=== PATIENT | male | born 1930 | race Caucasian/White ===

== ENCOUNTER 2018-10-14 08:41 | Inpatient (IN) | payer OTHER, BC ==
[2018-10-14] MEDS ORDERED: SODIUM CHLORIDE 1,000 ML IV SCH (08:45)
[2018-10-14] MEDS ORDERED: SODIUM CHLORIDE 500 ML IV STA (09:05)
[2018-10-14 09:08] LABS: BASO % 0.5 % (0-2.0); EOS % 0.1 % (0-4.5); HEMOGLOBIN 14.3 GM/dL (11.7-16.9); LYMPH % 25.8 % (8-40); MCH 28.6 pg (25.7-33.7); MCHC 33.2 g/dl (32.0-35.9); MEAN CELL VOLUME 86.1 fl (80-96); MEAN PLT VOLUME 8.3 fl (7.5-11.1); MONO % 2.7 % (3.8-10.2); NEUT % 70.9 % (42.8-82.8); PLATELET COUNT 334 K/MM3 (134-434); RBC 4.99 M/mm3 (4.00-5.60); RDW 14.1 % (11.9-15.9); WHITE BLOOD COUNT 7.2 K/mm3 (4.0-10.0)
[2018-10-14 09:16] LABS: ARTERIAL BLOOD GAS BASE EXCESS -4.8 meq/l (-2-2); ARTERIAL BLOOD GAS PCO2 44.2 mmHg (35-45); ARTERIAL BLOOD GAS PO2 121 mmHg (80-105); CARBOXYHEMOGLOBIN 0.4 % (0-2)
[2018-10-14 09:17] LABS: ALLENS TEST POSITIVE
[2018-10-14 09:22] LABS: INR 1.08 (0.83-1.09); PROTHROMBIN TIME (PATIENT) 12.7 SEC (9.7-13.0)
--- NOTE | 2018-10-14 09:34 | PDOC ---
History of Present Illness <Milady Fair - Last Filed: 10/14/18 09:48> - General History Source: EMS, Family Exam Limitations: Clinical Condition - History of Present Illness Initial Comments: 10/14/18 09:28 88-year-old male with history of BPH brought in by EMS after he was found unresponsive by his . Patient was last noted in his baseline state of health at 3 AM and they have arrival after which she was noted to vomit. Upon EMS arrival, patient was noted to be having generalized tonic-clonic seizure with right-sided gaze preference. Upon termination of seizure, patient was noted to be bradykinetic which L or respirations and intubation was performed for airway protection. Etomidate and rocuronium were used. No trauma is reported no toxic ingestion is endorsed. Fingerstick in the field was 159. REVIEW OF SYSTEMS Unable to obtain due to patient's clinical condition EXAMINATION CONSTITUTIONAL: Intubated, comatose, GCS-3 on arrival; hypotensive HEAD: Normocephalic; atraumatic EYES: Pupils are 1 mm bilaterally, nonreactive ENMT: External appears normal; normal oropharynx; ET tube in place NECK: Supple; non-tender; CARD: Normal S1, S2; no murmurs, rubs, or gallops RESP: Normal chest excursion with respiration; breath sounds clear and equal bilaterally; no wheezes, rhonchi, or rales ABD: Soft, non-distended; non-tender; no palpable organomegaly, no palpable hernias EXT: Normal ROM in all four extremities; non-tender to palpation; distal pulses intact SKIN: Warm, dry, no rash NEURO: Unresponsive, intubated, does not respond to painful stimuli <Del Hicks - Last Filed: 10/14/18 13:35> - General Chief Complaint: Seizure Stated Complaint: UNCONSCIOUS Time Seen by Provider: 10/14/18 08:45 Past History <Milady Fair - Last Filed: 10/14/18 09:48> - Past Medical History COPD: No HTN: Yes Other medical history: BPH - Suicide/Smoking/Psychosocial Hx Smoking History: Unknown if ever smoked <Del Hicks - Last Filed: 10/14/18 13:35> - Past Medical History Allergies/Adverse Reactions: Allergies Allergy/AdvReac Type Severity Reaction Status Date / Time No Allergy Information Allergy Verified 10/14/18 08:52 Available Home Medications: Ambulatory Orders NK [No Known Home Medication] 10/14/18 *Physical Exam - Vital Signs Last Vital Signs Temp Pulse Resp BP Pulse Ox 97.5 F L 81 14 119/76 100 10/14/18 09:44 10/14/18 09:44 10/14/18 09:44 10/14/18 09:44 10/14/18 09:44 <Milady Fair - Last Filed: 10/14/18 09:48> - Vital Signs Last Vital Signs Temp Pulse Resp BP Pulse Ox 97.5 F L 81 15 91/51 L 100 10/14/18 09:05 10/14/18 08:55 10/14/18 09:09 10/14/18 08:55 10/14/18 08:55 <Del Hicks - Last Filed: 10/14/18 13:35> Moderate Sedation - Procedure Monitoring Vital Signs: Procedure Monitoring Vital Signs Temperature 97.5 F L 10/14/18 09:44 Pulse Rate 81 10/14/18 09:44 Respiratory Rate 14 10/14/18 09:44 Blood Pressure 119/76 10/14/18 09:44 O2 Sat by Pulse Oximetry (%) 100 10/14/18 09:44 <Milady Fair - Last Filed: 10/14/18 09:48> - Procedure Monitoring Vital Signs: Procedure Monitoring Vital Signs Temperature 97.5 F L 10/14/18 09:05 Pulse Rate 81 10/14/18 08:55 Respiratory Rate 15 10/14/18 09:09 Blood Pressure 91/51 L 10/14/18 08:55 O2 Sat by Pulse Oximetry (%) 100 10/14/18 08:55 <Del Hicks - Last Filed: 10/14/18 13:35> Heart Score/ECG Review - ECG Intrepretation Comment:: 10/14/18 09:49 EKG was read by Dr. Hicks at 09:26 Impression: Sinus rhythm with occasional premature ventricular complexes. Cannot r/u anterior infarct of undetermined age. Vent Rate: 88 bpm [place] Interval: 196 ms QTC: 459ms <Milady Fair - Last Filed: 10/14/18 09:48> ED Treatment Course - LABORATORY CBC & Chemistry Diagram: 10/14/18 08:45 10/14/18 08:45 - ADDITIONAL ORDERS Additional order review: Laboratory Results 10/14/18 10/14/18 10/14/18 09:05 08:46 08:45 PT with INR INR Anticoagulation Therapy No Result Required. Puncture Site Left radial ABG pH 7.30 L ABG pCO2 at Pt Temp 44.2 ABG pO2 at Pt Temp 121 H ABG HCO3 21.1 L ABG O2 Sat (Measured) 98.0 ABG O2 Content 18.2 ABG Base Excess -4.8 L Roney Test Positive Carboxyhemoglobin 0.4 Methemoglobin 0.4 O2 Delivery Device No Result Required. Oxygen Flow Rate Yes Vent Mode No Result Required. Vent Rate No Result Required. Mechanical Rate No Result Required. Pressure Support Vent No Result Required. Sodium 137 Potassium 3.7 Chloride 102 Carbon Dioxide 24 Anion Gap 11 BUN 12 Creatinine 1.1 Creat Clearance w eGFR > 60 POC Glucometer 195 Random Glucose 200 H Calcium 8.7 Total Bilirubin 0.7 AST 15 ALT 17 Alkaline Phosphatase 132 H Creatine Kinase 65 Troponin I < 0.02 Total Protein 7.5 Albumin 4.0 Triglycerides 147 Cholesterol 189 Total LDL Cholesterol 109 H HDL Cholesterol 54 10/14/18 08:43 PT with INR 12.70 INR 1.08 Anticoagulation Therapy Puncture Site ABG pH ABG pCO2 at Pt Temp ABG pO2 at Pt Temp ABG HCO3 ABG O2 Sat (Measured) ABG O2 Content ABG Base Excess Roney Test Carboxyhemoglobin Methemoglobin O2 Delivery Device Oxygen Flow Rate Vent Mode Vent Rate Mechanical Rate Pressure Support Vent Sodium Potassium Chloride Carbon Dioxide Anion Gap BUN Creatinine Creat Clearance w eGFR POC Glucometer Random Glucose Calcium Total Bilirubin AST ALT Alkaline Phosphatase Creatine Kinase Troponin I Total Protein Albumin Triglycerides Cholesterol Total LDL Cholesterol HDL Cholesterol 10/14/18 10/14/18 08:46 08:45 RBC 4.99 MCV 86.1 MCHC 33.2 RDW 14.1 MPV 8.3 Neutrophils % 70.9 Lymphocytes % 25.8 Monocytes % 2.7 L Eosinophils % 0.1 Basophils % 0.5 POC Glucometer 195 - RADIOLOGY Radiograph Interpretation: EXAM#: TYPE/EXAM: RESULT: [id number] CT/HEAD CT (STROKE) Rule out stroke. CT scan of the brain. A noncontrast CT scan of the brain was performed. There is moderate volume loss and ventricular dilatation. Moderate chronic microvascular ischemic changes are present There is a small dural based/extra axial right parafalcine hyperdense lesion measuring 8 x 6 mm suggestive of a meningioma. Otherwise, no mass lesion, gross acute infarct or intracranial hemorrhage are identified. Mild deviation of the nasal septum towards the left. Minimal mucosal thickening in the right maxillary antrum. Otherwise, the visualized paranasal sinuses and mastoid air cells are well aerated. Calcification of the cavernous carotid arteries are noted. The calvarium is intact . Note is made of mild soft tissue swelling of the scalp over right side of the forehead. Impression: Moderate atrophy. 8 x 6 mm right anterior parafalcine hyperdense lesion with calcification likely representing a meningioma. Otherwise, no mass lesion or gross acute intracranial pathology is identified. Correlate clinically to determine further evaluation and follow-up. Note is made of mild soft tissue swelling of the scalp over right side of the forehead. Correlate clinically. Reported By: Tang Lama MD 10/14/18 0921 <Milady Fair - Last Filed: 10/14/18 09:48> - LABORATORY CBC & Chemistry Diagram: 10/14/18 08:45 10/14/18 08:45 - ADDITIONAL ORDERS Additional order review: Laboratory Results 10/14/18 10/14/18 10/14/18 09:05 08:46 08:43 PT with INR 12.70 INR 1.08 Anticoagulation Therapy No Result Required. Puncture Site Left radial ABG pH 7.30 L ABG pCO2 at Pt Temp 44.2 ABG pO2 at Pt Temp 121 H ABG HCO3 21.1 L ABG O2 Sat (Measured) 98.0 ABG O2 Content 18.2 ABG Base Excess -4.8 L Roney Test Positive Carboxyhemoglobin 0.4 Methemoglobin 0.4 O2 Delivery Device No Result Required. Oxygen Flow Rate Yes Vent Mode No Result Required. Vent Rate No Result Required. Mechanical Rate No Result Required. Pressure Support Vent No Result Required. POC Glucometer 195 10/14/18 10/14/18 08:46 08:45 RBC 4.99 MCV 86.1 MCHC 33.2 RDW 14.1 MPV 8.3 Neutrophils % 70.9 Lymphocytes % 25.8 Monocytes % 2.7 L Eosinophils % 0.1 Basophils % 0.5 POC Glucometer 195 - RADIOLOGY Radiology Studies Ordered: Category Date Time Status HEAD CT (STROKE) [CT] Stat CT Scan 10/14/18 08:45 Completed CHEST X-RAY PORTABLE* [RAD] Stat Radiology 10/14/18 08:46 Ordered <Del Hicks - Last Filed: 10/14/18 13:35> Medical Decision Making - Critical Care Time Total Critical Care Time (minutes): 90 Critical Care Statement: The care of this patient involved high complexity decision making to prevent further life threatening deterioration of the patient 's condition and/or to evaluate & treat vital organ system(s) failure or risk of failure. - Medical Decision Making 10/14/18 09:45 88-year-old male with previous history of hypercholesterolemia and BPH presents to the ER after being unresponsive at home. Episode of vomiting and a generalized tonic-clonic seizure noted and patient intubated for airway protection by EMS. Initial evaluation patient is comatose and unresponsive. Upon return from CT, patient's hemodynamic status stabilized. Repeat evaluation shows spontaneous movement of the left upper extremity and withdrawal of the left lower extremity from painful stimuli. No movement is appreciated on the right. Pupils remain 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 Case discussed with Dr. Reyes of neurology. We'll administer rectal aspirin. Will obtain CTA of neck and brain. Patient not a TPA candidate given the seizure at the onset of his symptoms and presentatoin more then 3 hrs after last known well. We'll consider transfer for thrombectomy if a significant lesion is identified. 10/14/18 11:58 Patient CTA of brain and neck shows no evidence of significant large vessel obstruction. 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 There is no indication for thrombectomy at this time. Will admit to the ICU. 10/14/18 11:59 Unable to obtain NIH stroke scale is patient is comatose. 10/14/18 12:04 Repeat chest x-ray shows ET tube 2 cm above the prasanth. Left costophrenic blunting is noted. It may be caused due to atelectasis or aspiration. There is no indication for IV antibiotics at this time as the patient is afebrile and there is no evidence of significant leukocytosis on CBC. 10/14/18 12:51 Called to patient's bedside. Patient noted to be vomiting coffee ground emesis. NG tube placed and 300 mL of coffee-ground like material aspirated. We'll administer Protonix. 10/14/18 13:35 Patient agitated and moving all extremities. Patient is opening his eyes. Will initiate propofol drip for sedation. <Del Hicks - Last Filed: 10/14/18 13:35> *DC/Admit/Observation/Transfer - Attestations Scribe Attestion: 10/14/18 09:48 Documentation prepared by Milady Fair, acting as program medical director for Del Hicks MD <Milady Fair - Last Filed: 10/14/18 09:48> - Discharge Dispostion Decision to Admit order: Yes <Del Hicks - Last Filed: 10/14/18 13:35> Diagnosis at time of Disposition: Seizure CVA (cerebral vascular accident) Qualifiers: CVA mechanism: unspecified Qualified Code(s): I63.9 - Cerebral infarction, unspecified Respiratory failure Qualifiers: Chronicity: unspecified Respiratory failure complication: unspecified whether with hypoxia or hypercapnia Qualified Code(s): J96.90 - Respiratory failure, unspecified, unspecified whether with hypoxia or hypercapnia GI bleed Qualifiers: GI bleed type/associated pathology: unspecified gastrointestinal hemorrhage type Qualified Code(s): K92.2 - Gastrointestinal hemorrhage, unspecified - Discharge Dispostion Condition at time of disposition: Critical NIH Stroke Scale - Last Known Well Date/Time & Onset Date Last Known Well: 10/14/18 Time Last Known Well: 03:00 - Initial Evaluation Level of consciousness: Coma <Del Hicks - Last Filed: 10/14/18 13:35>
[2018-10-14] MEDS ORDERED: ASPIRIN 300 MG SUPP.RECT PR ONE (09:35)
[2018-10-14 09:39] LABS: ALK PHOS 132 U/L (45-117); ANION GAP 11 MMOL/L (8-16); BILIRUBIN,TOTAL 0.7 mg/dL (0.2-1); BLOOD UREA NITROGEN 12 mg/dL (7-18); CALCIUM 8.7 mg/dL (8.5-10.1); CHLORIDE 102 mmol/L (98-107); CHOLESTEROL 189 mg/dL (50-200); CO2 24 mmol/L (21-32); CREATININE 1.1 mg/dL (0.55-1.3); GLUCOSE,RANDOM 200 mg/dL (74-106); HDL CHOLESTEROL 54 mg/dL (40-60); POTASSIUM 3.7 mmol/L (3.5-5.1); SGOT/AST 15 U/L (15-37); SGPT/ALT 17 U/L (13-61); SODIUM 137 mmol/L (136-145); TOT PROT 7.5 g/dl (6.4-8.2); TRIGLYCERIDES 147 mg/dL (0-150)
[2018-10-14] MEDS ORDERED: ASPIRIN 300 MG SUPP.RECT RC ONE (09:47)
[2018-10-14 10:28] LABS: URINE APPEARANCE SLCLOUDY; URINE BILIRUBIN NEGATIVE (<2.0 mg/dL); URINE COLOR LTYELLOW; URINE GLUCOSE (UA) 2+ (NEGATIVE); URINE KETONE TRACE (NEGATIVE); URINE LEUK ESTERASE NEGATIVE (NEGATIVE); URINE NITRITE NEGATIVE (NEGATIVE); URINE PROTEIN 1+ (NEGATIVE); URINE UROBILINOGEN NEGATIVE mg/dL (0.2-1.0)
[2018-10-14 10:29] LABS: EPI CELLS RARE /HPF (FEW); URINE BACTERIA RARE /hpf (NONE SEEN); URINE HYALINE CAST 3 /lpf; URINE MUCUS RARE
[2018-10-14] MEDS ORDERED: SODIUM CHLORIDE 250 ML IV STA (10:34)
--- NOTE | 2018-10-14 12:44 | PN ---
Teaching Attending Note ATTENDING PHYSICIAN STATEMENT I saw and evaluated the patient. I reviewed the resident's note and discussed the case with the resident. I agree with the resident's findings and plan as documented. SUBJECTIVE: Pt seen and examined in the ER. History obtained from family at bedside, Briefly , 88yo male with h/o BPH, hyperlipidemia who was found to be unresponsive at home. Had been complaining of gastrointestinal symptoms previously with diarrhea and vomiting. Noted to have seizure activity by EMS and intubated post seizure. Currently somnolent but arousable off sedation, not following commands. Vented on volume assist control with 80% FiO2. Found to have a small basal ganglia infarct on CTA head. OBJECTIVE: Vital Signs Period Temp Pulse Resp BP Sys/Ludwig Pulse Ox Last 24 Hr 97.5 F-97.5 F 81-86 14-18 91-119/51-76 100-100 Intake & Output 10/11/18 10/12/18 10/13/18 10/14/18 23:59 23:59 23:59 23:59 Weight 99.79 kg Gen: intubated, somnolent Heart: RRR Lung: scattered rhonchi Abd: soft, nontender Ext: no edema CBC, BMP 10/14/18 08:45 10/14/18 08:45 Active Medications Sodium Chloride (Normal Saline -) 1,000 mls @ 42 mls/hr IV ASDIR BARRETT Last Admin: 10/14/18 09:31 Dose: 42 mls/hr ASSESSMENT AND PLAN: Acute CVA Seizure Acute Respiratory Failure Lactic Acidosis Atelectasis Hyperlipidemia BPH - given ASA in ER - antiepileptics - IVF - trend lactate - hold sedation in AM to assess mental status - spontaneous breathing trials and hopefully extubate tomorrow - MRI brain when extubated - DVT/GI prophylaxis - ICU monitoring critical care time spent in reviewing chart, evaluating patient and formulating plan 35 min
[2018-10-14] MEDS ORDERED: PANTOPRAZOLE SODIUM 40 MG VIAL IVPUSH ONE (12:53)
[2018-10-14] MEDS ORDERED: PANTOPRAZOLE SODIUM 40 MG/100 ML BAG IVPB ONE (12:55)
[2018-10-14] MEDS ORDERED: PANTOPRAZOLE SODIUM 40 MG VIAL ONE ×2 (12:55→12:56)
--- NOTE | 2018-10-14 13:32 | PN ---
Teaching Attending Note Name of Resident: Shelly Rivera ATTENDING PHYSICIAN STATEMENT I saw and evaluated the patient. I reviewed the resident's note and discussed the case with the resident. I agree with the resident's findings and plan as documented. SUBJECTIVE: The patient is a 88yo male with PMHx of BPH, hyperlipidemia who was found to be unresponsive at home around 4-5am at home by his . Noted to have seizure activity by EMS and was intubated post seizure. On sedation, not following commands. Was Found to have a small basal ganglia infarct on CTA head. OBJECTIVE: Vital Signs Temperature 97.5 F L 10/14/18 09:44 Pulse Rate 86 10/14/18 12:25 Respiratory Rate 14 10/14/18 12:25 Blood Pressure 108/56 L 10/14/18 12:25 O2 Sat by Pulse Oximetry (%) 100 10/14/18 12:25 Initial Vital Signs Pulse Resp BP Pulse Ox 81 16 91/51 L 100 10/14/18 08:55 10/14/18 08:55 10/14/18 08:55 10/14/18 08:55 CONSTITUTIONAL: Intubated, comatose, GCS-3 on arrival; hypotensive HEAD: Normocephalic; atraumatic EYES: Pupils are 1 mm bilaterally, nonreactive ENMT: External appears normal; normal oropharynx; ET tube in place NECK: Supple; non-tender; CARD: Normal S1, S2; no murmurs, rubs, or gallops RESP: Normal chest excursion with respiration; breath sounds clear and equal bilaterally; no wheezes, rhonchi, or rales ABD: Soft, non-distended; non-tender; no palpable organomegaly, no palpable hernias EXT: Normal ROM in all four extremities; non-tender to palpation; distal pulses intact SKIN: Warm, dry, no rash NEURO: Unresponsive, intubated, does not respond to painful stimuli since on sedation CBCD WBC 7.2 K/mm3 (4.0-10.0) 10/14/18 08:45 RBC 4.99 M/mm3 (4.00-5.60) 10/14/18 08:45 Hgb 14.3 GM/dL (11.7-16.9) 10/14/18 08:45 Hct 43.0 % (35.4-49) 10/14/18 08:45 MCV 86.1 fl (80-96) 10/14/18 08:45 MCHC 33.2 g/dl (32.0-35.9) 10/14/18 08:45 RDW 14.1 % (11.9-15.9) 10/14/18 08:45 Plt Count 334 K/MM3 (134-434) 10/14/18 08:45 MPV 8.3 fl (7.5-11.1) 10/14/18 08:45 CMP Sodium 137 mmol/L (136-145) 10/14/18 08:45 Potassium 3.7 mmol/L (3.5-5.1) 10/14/18 08:45 Chloride 102 mmol/L (98-107) 10/14/18 08:45 Carbon Dioxide 24 mmol/L (21-32) 10/14/18 08:45 Anion Gap 11 MMOL/L (8-16) 10/14/18 08:45 BUN 12 mg/dL (7-18) 10/14/18 08:45 Creatinine 1.1 mg/dL (0.55-1.3) 10/14/18 08:45 Creat Clearance w eGFR > 60 (>60) 10/14/18 08:45 Random Glucose 200 mg/dL (74-106) H 10/14/18 08:45 Calcium 8.7 mg/dL (8.5-10.1) 10/14/18 08:45 Total Bilirubin 0.7 mg/dL (0.2-1) 10/14/18 08:45 AST 15 U/L (15-37) 10/14/18 08:45 ALT 17 U/L (13-61) 10/14/18 08:45 Alkaline Phosphatase 132 U/L (45-117) H 10/14/18 08:45 Total Protein 7.5 g/dl (6.4-8.2) 10/14/18 08:45 Albumin 4.0 g/dl (3.4-5.0) 10/14/18 08:45 CARDIAC ENZYMES Creatine Kinase 65 U/L (26-308) 10/14/18 08:45 Troponin I < 0.02 ng/ml (0.00-0.05) 10/14/18 08:45 Urine Test Results Urine Color Ltyellow 10/14/18 09:17 Urine Appearance Slcloudy 10/14/18 09:17 Urine pH 6.0 (5.0-8.0) 10/14/18 09:17 Ur Specific [place] 1.011 (1.010-1.035) 10/14/18 09:17 Urine Protein 1+ (NEGATIVE) H 10/14/18 09:17 Urine Glucose (UA) 2+ (NEGATIVE) H 10/14/18 09:17 Urine Ketones Trace (NEGATIVE) H 10/14/18 09:17 Urine Blood 1+ (NEGATIVE) H 10/14/18 09:17 Urine Nitrite Negative (NEGATIVE) 10/14/18 09:17 Urine Bilirubin Negative (<2.0 mg/dL) 10/14/18 09:17 Ur Leukocyte Esterase Negative (NEGATIVE) 10/14/18 09:17 Ur Epithelial Cells Rare /HPF (FEW) 10/14/18 09:17 Urine Bacteria Rare /hpf (NONE SEEN) 10/14/18 09:17 Urine Mucus Rare 10/14/18 09:17 Current Medications Generic Name Dose Route Start Last Admin Trade Name Freq PRN Reason Stop Dose Admin Atorvastatin Calcium 40 mg 10/14/18 22:00 Lipitor - PO HS BARRETT Chlorhexidine Gluconate 1 applic 10/14/18 22:00 Hibiclens For Decolonization - TP HS BARRETT Propofol 1,000,000 mcg in 100 mls @ 2.994 mls/hr 10/14/18 13:45 10/14/18 15: 30 Diprivan - IVPB 25 mcg/kg/min TITR BARRETT 14.969 mls/hr Titration Protocol 5 MCG/KG/MIN Ceftriaxone Sodium 1 gm/ 50 mls @ 100 mls/hr 10/14/18 16:15 10/14/18 17:53 Dextrose IVPB 100 mls/hr DAILY BARRETT Administration Sodium Chloride 1,000 mls @ 100 mls/hr 10/14/18 16:12 10/14/18 16:15 Normal Saline - IV 100 mls/hr ASDIR BARRETT Administration Pantoprazole Sodium 80 mg/ 100 mls @ 10 mls/hr 10/14/18 18:00 Sodium Chloride IVPB Q10H BARRETT 8 MG/HR Levetiracetam 1,000 mg 10/14/18 14:45 10/14/18 16:10 Keppra Injection - IVPB 1,000 mg BID BARRETT Administration Mupirocin 1 applic 10/14/18 22:00 Bactroban Ointment (For Decolonization) - NS 10/19/18 21:59 BID BARRETT ASSESSMENT AND PLAN: Patient is an 88 year old male with a PMHx of BPH and HLD who was intubated on the field due to apnea and hypoxia . According to , patient last night had multiple episodes of nonbloody diarrhea and one episode of dark vomitus and one at 0700 today. Patient then became unresponsive, which prompted them to call 911. On the field patient was intubated due to apnea and hypoxia. As per and daughter, patient was in his usual state of health yesterday with no changes at baseline. However, patients daughter mentioned that in the last couple of weeks he would have some stuttered speech for a few seconds and would then go back to baseline. #Acute hypoxic Respiratory Failure: s/p intubation in ICU. Rest of management per ICU #Acute CVA: MRI brain when extubated, given ASA in ER, IVF, lipitor 80mg daily #Seizure: antiepileptics continue Keppra, Neuro consult appreciated #Lactic Acidosis: possible due to aspiration pneumonia as, per family patient vomited and became unresponsive , will start empiric Abx Rocephin. #Atelectasis: on IV antibiotics and on the vent. #Hyperlipidemia: will start Lipitor 80mg qhs # Hx of BPH #elevated BS: accu check with sliding scale. DVT/GI prophylaxis ICU monitoring
[2018-10-14] MEDS ORDERED: PROPOFOL 1,000,000 MCG/100 ML VIAL ONE (13:36)
[2018-10-14] MEDS: PROPOFOL 1,000,000 MCG/100 ML VIAL IVPB SCH ×2 (13:45→21:20)
--- NOTE | 2018-10-14 14:03 | CONSULT ---
Consultation: REQUESTING PROVIDER: Dr. Goode CONSULT REQUEST FOR ICU: We have been asked to medically evaluate this patient for Acute Hypoxic Respiratory Failure. HISTORY OF PRESENT ILLNESS: Patient is an 88 year old male with a PMHx of BPH and HLD who was BIBEMS intubated and sedated. All information obtained from /daughter and ED staff at bedside. according to , patient last night has multiple episodes of nonbloody diarrhea and one episode of dark vomitus at 0700 today. Patient then became unresponsive, which prompted them to call 911. On the field patient was intubated due to apnea and hypoxia. As per and daughter, patient was in his usual state of health yesterday with no changes at baseline. However, patients daughter mentioned that in the last couple of weeks he would have some stuttered speech for a few seconds and would then go back to baseline. In the ED patient had OG tube placed and 300 mL of coffee-ground like material was aspirated. 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 EYES: Pupils 3 mm bilaterally and non-reactive, sclera anicteric, conjunctiva clear. ENT: ET tube in place. Dry mucous membranes NECK: (-) JVD LUNGS: Bilateral Rhonchi throughout lung bases. (+)ET tube HEART: Regular rate and rhythm, normal S1 and S2 ABDOMEN: Soft, nontender, mildly distended, normoactive bowel sounds, no guarding, no rebound, no masses. No hepatomegaly or splenomegaly. MUSCULOSKELETAL: No CVA tenderness. EXTREMITIES: No peripheral edema. NEUROLOGICAL: Cranial nerves II-XII intact. Normal speech. Normal gait. PSYCHIATRIC: Cooperative. Good eye contact. Appropriate mood and affect. SKIN: Warm, dry, normal turgor, no rashes or lesions noted. Laboratory Results 10/14/18 08:45 10/14/18 08:45 10/14/18 10/14/18 08:45 08:45 Lactic Acid 9.0 H* Total Bilirubin 0.7 AST 15 ALT 17 Alkaline Phosphatase 132 H Troponin I < 0.02 ABG Results ABG pH 7.30 (7.35-7.45) L 10/14/18 09:05 ABG pCO2 at Pt Temp 44.2 mmHg (35-45) 10/14/18 09:05 ABG pO2 at Pt Temp 121 mmHg (80-105) H 10/14/18 09:05 ABG HCO3 21.1 mmol/L (22-27) L 10/14/18 09:05 ABG O2 Sat (Measured) 98.0 % (95-98) 10/14/18 09:05 ABG O2 Content 18.2 % vol (15-22) 10/14/18 09:05 ABG Base Excess -4.8 meq/l (-2-2) L 10/14/18 09:05 Urine Test Results Urine Color Ltyellow 10/14/18 09:17 Urine Appearance Slcloudy 10/14/18 09:17 Urine pH 6.0 (5.0-8.0) 10/14/18 09:17 Ur Specific [place] 1.011 (1.010-1.035) 10/14/18 09:17 Urine Protein 1+ (NEGATIVE) H 10/14/18 09:17 Urine Glucose (UA) 2+ (NEGATIVE) H 10/14/18 09:17 Urine Ketones Trace (NEGATIVE) H 10/14/18 09:17 Urine Blood 1+ (NEGATIVE) H 10/14/18 09:17 Urine Nitrite Negative (NEGATIVE) 10/14/18 09:17 Urine Bilirubin Negative (<2.0 mg/dL) 10/14/18 09:17 Ur Leukocyte Esterase Negative (NEGATIVE) 10/14/18 09:17 Ur Epithelial Cells Rare /HPF (FEW) 10/14/18 09:17 Urine Bacteria Rare /hpf (NONE SEEN) 10/14/18 09:17 Urine Mucus Rare 10/14/18 09:17 Active Medications Generic Name Dose Route Start Last Admin Trade Name Freq PRN Reason Stop Dose Admin Sodium Chloride 1,000 mls @ 42 mls/hr 10/14/18 08:45 10/14/18 09:31 Normal Saline - IV 42 mls/hr ASDIR BARRETT Administration Propofol 1,000,000 mcg in 100 mls @ 2.994 mls/hr 10/14/18 13:45 10/14/18 13: 45 Diprivan - IVPB 5 mcg/kg/min TITR BARRETT 2.994 mls/hr Administration Protocol 5 MCG/KG/MIN IMAGES: Head CT (10/14/18): There is moderate volume loss and ventricular dilatation. Moderate chronic microvascular ischemic changes are present. There is a small dural based/extra axial right parafalcine hyperdense lesion measuring 8 x 6 mm suggestive of a meningioma. Otherwise, no mass lesion, gross acute infarct or intracranial hemorrhage are identified. Mild deviation of the nasal septum towards the left. Minimal mucosal thickening in the right maxillary antrum. Otherwise, the visualized paranasal sinuses and mastoid air cells are well aerated. Calcification of the cavernous carotid arteries are noted. The calvarium is intact . Note is made of mild soft tissue swelling of the scalp over right side of the forehead. Impression: Moderate atrophy. 8 x 6 mm right anterior parafalcine hyperdense lesion with calcification likely representing a meningioma. Otherwise, no mass lesion or gross acute intracranial pathology is identified. Brain and Neck CTA (10/14/18): no evidence of significant large vessel obstruction. 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 ASSESSMENT/PLAN: Patient is an 88 year old male who was BIBEMS for altered mental status and witnessed seizure tonic/clonic seizure by . Patient was intubated on the field and admitted to ICU for further monitoring and management. 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 Prolactin pending. Repeat Lactic 2.3 -Levetiracetam 1000mg BID IVPB ordered, as per Neuro -No indication for emergent EEG, as per Neuro -Continue to monitor for further seizure activity. PULMONARY #Acute Hypoxic Respiratory Failure -Possibly secondary to Aspiration Pneumonia -Intubated and Sedated on propofol -Spontaneous breathing trials as tolerated with possible extubation tomorrow -Chest X-Ray revealed Left costophrenic blunting but may be due to atelectasis vs aspiration. -Ceftriaxone 1000mg IVPB daily ordered, as per primary team GASTROENTEROLOGY #Hematemesis -Possible UGI bleed. OG tube placed in ED and 300 mL of coffee-ground like material was aspirated -Patient given 80mg of Protonix and is now on Protonix drip -GI consult placed -OG tube placed -NPO for now -Hold AC and Aspirin -Monitor for overt bleeding. Will likely require EGD once patient stable #Possible Partial Bowel Obstruction -OG tube in with intermittent suction -Abdominal X-Ray revealed possible partial bowel obstruction -Surgery consult placed #Diarrhea -Patients family report one day history of nonbloody diarrhea -C.Diff ordered -Continue to monitor electrolytes #Elevated Alkaline Phosphatase -LFT's and Bili wnl -Abdominal U/S ordered -Continue to monitor CARDIOLOGY #HLD -Continue Atorvastatin 40mg daily INFECTIOUS DISEASE #Lactic Acidosis -Likely secondary to seizure activity -Patient currently on 100cc/hr IV NS -Lactic improved to 2.3. Will repeat lactic #Possible Aspiration Pneumonia -Afebrile with no leukocytosis -Ceftriaxone 1gm IVPB daily started, as per primary team -Blood cultures pending -Continue to monitor F/E/N -IV NS @100cc/hr -Electrolytes wnl -NPO Prophylaxis -No AC due to possible GI bleed -Protonix drip for GI Disposition -Full code. is HCP -Remains intubated and requires ICU monitoring Avani Valenzuela [id number] Visit type - Emergency Visit Emergency Visit: Yes ED Registration Date: 10/14/18 Care time: The patient presented to the Emergency Department on the above date and was hospitalized for further evaluation of their emergent condition. - New Patient This patient is new to me today: Yes Date on this admission: 10/14/18 - Critical Care Critical Care patient: Yes Total Critical Care Time (in minutes): 36 Critical Care Statement: The care of this patient involved high complexity decision making to prevent further life threatening deterioration of the patient 's condition and/or to evaluate & treat vital organ system(s) failure or risk of failure.
--- NOTE | 2018-10-14 14:48 | HP ---
CHIEF COMPLAINT: vomiting, unresponsive PCP: Dr. Yusuf HISTORY OF PRESENT ILLNESS: 88 y/o M with PMH BPH, HLD, who presents to the ED after he was found unresponsive at home by his this AM. As per , at approx 5-6AM, pt had one episode of NBNB emesis, and his eyes subsequently "rolled to the back of his head." At this time, he stopped responding to his verbally, so she called 911 and was brought to the ED via EMS. According to ED documentation, pt had one seizure-like episode en route, consistent with tonic-clonic movements. Recently, endorses pt had multiple episodes of loose BM's without blood. Otherwise, denies recent SWIFT, fever, chills, SOB, chest pain or pressure, or changes in urinary function. Since ED arrival, pt intubated and sedated. a/c TV 500/50% Fi02/60 flow/peep 5/ rate 14 ER course was notable for: (1) NIHSS 3 on arrival (2) asa 300mg ND (3) protonix 80mg x1 (4) vented, sedated (5) NS 500ml, 250ml Recent Travel: denies PAST MEDICAL HISTORY: as above PAST SURGICAL HISTORY: R knee repair, GIT - polyp and biopsy (family does not recall location) Social History: from [place] Smoking: when young Alcohol: socially Drugs: denies Family History: non-contributory Allergies No Allergy Information Available Allergy (Verified 10/14/18 08:52) HOME MEDICATIONS: Home Medications Medication Instructions Recorded atorvastatin 10mg qd tamsulosin 0.4mg qd 10/14/18 meds have been confirmed with [facility] REVIEW OF SYSTEMS CONSTITUTIONAL: Absent: fever, chills, diaphoresis, generalized weakness, malaise, loss of appetite, weight change HEENT: Absent: rhinorrhea, nasal congestion, throat pain, throat swelling, difficulty swallowing, mouth swelling, ear pain, eye pain, visual changes CARDIOVASCULAR: Absent: chest pain, syncope, palpitations, irregular heart rate, lightheadedness , peripheral edema RESPIRATORY: Absent: cough, shortness of breath, dyspnea with exertion, orthopnea, wheezing, stridor, hemoptysis GASTROINTESTINAL: +vomiting, diarrhea Absent: abdominal pain, abdominal distension, nausea, constipation, melena, hematochezia GENITOURINARY: Absent: dysuria, frequency, urgency, hesitancy, hematuria, flank pain, genital pain MUSCULOSKELETAL: Absent: myalgia, arthralgia, joint swelling, back pain, neck pain SKIN: Absent: rash, itching, pallor HEMATOLOGIC/IMMUNOLOGIC: Absent: easy bleeding, easy bruising, lymphadenopathy, frequent infections ENDOCRINE: Absent: unexplained weight gain, unexplained weight loss, heat intolerance, cold intolerance NEUROLOGIC: Absent: headache, focal weakness or paresthesias, dizziness, unsteady gait, seizure, mental status changes, bladder or bowel incontinence PSYCHIATRIC: Absent: anxiety, depression, suicidal or homicidal ideation, hallucinations. PHYSICAL EXAMINATION Vital Signs 10/14/18 10/14/18 13:45 14:25 Pulse Rate [ 89 Apical] Respiratory 20 Rate Blood Pressure Blood Pressure 143/61 [Right Arm] O2 Sat by Pulse 100 Oximetry (%) GENERAL: vented, sedated HEAD: Normal with no signs of trauma. EYES: Pupils equal, round and reactive to light, extraocular movements intact, sclera anicteric, conjunctiva clear. EARS, NOSE, THROAT: Ears normal, nares patent. +OGT NECK: Normal range of motion, supple LUNGS: +b/l rhonchi, coarse breath sounds HEART: Regular rate and rhythm, normal S1 and S2 without murmur, rub or gallop. ABDOMEN: Soft, nontender, mildly distended, normoactive bowel sounds UPPER EXTREMITIES: 2+ pt pulses, warm, well-perfused. No cyanosis. No clubbing. No peripheral edema. LOWER EXTREMITIES: 2+ pt pulses, warm, well-perfused. No calf tenderness. No peripheral edema. NEUROLOGICAL: unable to assess as pt sedated SKIN: Warm, dry Laboratory Tests 10/14/18 10/14/18 10/14/18 08:45 08:45 08:45 WBC 7.2 Hgb 14.3 Hct 43.0 MCV 86.1 Plt Count 334 ABG pH ABG pCO2 at Pt Temp ABG pO2 at Pt Temp ABG HCO3 Sodium 137 Potassium 3.7 Chloride 102 Carbon Dioxide 24 BUN 12 Creatinine 1.1 POC Glucometer Random Glucose 200 H Lactic Acid 9.0 H* Alkaline Phosphatase 132 H Troponin I < 0.02 Total LDL Cholesterol 109 H Prolactin Urine Blood 10/14/18 10/14/18 10/14/18 08:46 09:05 09:17 Hgb MCV Plt Count ABG pH 7.30 L ABG pCO2 at Pt Temp 44.2 ABG pO2 at Pt Temp 121 H ABG HCO3 21.1 L Sodium BUN POC Glucometer 195 Lactic Acid Prolactin Urine Protein 1+ H Urine Glucose (UA) 2+ H Urine Ketones Trace H Urine Blood 1+ H 10/14/18 10/14/18 12:00 15:00 Random Glucose Lactic Acid 2.3 H* Troponin I Prolactin Pending Urine Protein Head CT: 8x6mm R anterior parafalcine hyperdense lesion with calcification, meningioma, R soft tissue swelling Head CTA: moderate calcified ath plaque proximal L internal carotid a., small acute L basal gang infarct CXR: tip of ET above trachea bifurcation EKG: NSR with PVC's, qtc 459ms AXR: NGT in stomach, mildly distended small bowel loops, possible partial obstruction can't be r/o ASSESSMENT/PLAN: 88 y/o M with PMH BPH, HLD, who presents to the ED after he was found unresponsive at home by his this AM. NEURO #Acute ischemic stroke -allow for permissive HTN, BP currently controlled -ECHO, brain MRI once extubated -carotids already done via head CTA- moderate calc plaque prox L ICA -lipitor 40mg through NGT -will hold asa and a/c for now as pt with r/o GIB -PT as able, once off sedation -neurochecks q2h -neuro on board: Dr. Villeda #seizure -possible 2/2 focus - meningioma -will ppx with keppra 1000mg IVPB BID -eeg (non-urgent) - once extubated -sz prophylaxis PULM #Acute hypoxic RF possible 2/2 aspiration -will cover for now with rocephin 1g IVPB qd -f/u blood cx -c/w vent a/c, SBTs as permitted -elevate HOB GI #r/o UGIB -as with hx coffee-ground emesis. however w/o elevation in BUN. H/H currently stable -will repeat CBC to assess for change H/H -s/p protonix 80mg ED. will c/w protonix gtt -place NGT to check lavage. holding asa for now for stroke. once cleared, can start -GI consult: Dr. Aquino #elevated ALP -f/u abd sono for pathology -nl LFTs #r/o possible SBO -c/w NGT decompression ED had placed an OGT -IVF, lyte supplementation -Surgery consulted: Dr. Wilde RENAL #lactic acidosis likely 2/ sz -cont to trend -has improved, will c/w IV NS 100 cc/hr #F/E/N IV NS 100 cc/hr continue to follow lytes NPO #Code status full code is HCP #PPX DVT: SCD's in light of possible bleed GI: protonix #Dispo admit to ICU Visit type - Emergency Visit Emergency Visit: Yes ED Registration Date: 10/14/18 Care time: The patient presented to the Emergency Department on the above date and was hospitalized for further evaluation of their emergent condition. - New Patient This patient is new to me today: Yes Date on this admission: 10/14/18 - Critical Care Critical Care patient: Yes Total Critical Care Time (in minutes): 44 Critical Care Statement: The care of this patient involved high complexity decision making to prevent further life threatening deterioration of the patient 's condition and/or to evaluate & treat vital organ system(s) failure or risk of failure.
[2018-10-14] MEDS: levETIRAcetam 500 MG/5 ML INJECTION VIAL IVPB SCH ×2 (16:10→21:19)
[2018-10-14] MEDS: SODIUM CHLORIDE 1,000 ML IV SCH (16:15)
[2018-10-14 16:34] LABS: BASO % 0.3 % (0-2.0); HEMATOCRIT 37.4 % (35.4-49); HEMOGLOBIN 12.8 GM/dL (11.7-16.9); LYMPH % 9.4 % (8-40); MCH 28.7 pg (25.7-33.7); MCHC 34.1 g/dl (32.0-35.9); MEAN CELL VOLUME 84.2 fl (80-96); MEAN PLT VOLUME 8.2 fl (7.5-11.1); MONO % 5.6 % (3.8-10.2); NEUT % 84.7 % (42.8-82.8); PLATELET COUNT 311 K/MM3 (134-434); RBC 4.44 M/mm3 (4.00-5.60); RDW 13.7 % (11.9-15.9); WHITE BLOOD COUNT 13.5 K/mm3 (4.0-10.0)
[2018-10-14] MEDS ORDERED: cefTRIAXone SODIUM 1 GM VIAL ONE (17:40)
[2018-10-14] MEDS ORDERED: DEXTROSE 5%-WATER - 50 ML IVPB ONE (17:40)
[2018-10-14] MEDS: CEFTRIAXONE 1 GM in DEXTROSE 5%-WATER - 50 ML IVPB SCH (17:53)
[2018-10-14] MEDS: PANTOPRAZOLE SODIUM 80 MG in SODIUM CHLORIDE 100 ML IVPB SCH (18:39)
--- NOTE | 2018-10-14 20:38 | CONS ---
DATE OF CONSULTATION: 10/14/2018 GASTROENTEROLOGY CONSULTATION HISTORY OF PRESENT ILLNESS: The patient is an 88-year-old man with a past medical history of BPH, knee repair, history of polyps on colonoscopy in the past, who was found to be unresponsive at home by his earlier this morning. Apparently he also had an episode of vomiting at that time while he was in bed. She called EMS for further evaluation. Patient was intubated and sedated on the field. Apparently, prior to admission the patient had multiple episodes of loose bowel movements which were nonbloody. Patient was found to have an acute ischemic stroke. Also had an episode of coffee ground emesis while in the emergency room. There is no history of GI bleed in the past. As per the and daughter, patient has had upper endoscopy and colonoscopy over 10 years ago. They do not recall the physician or the results of this study. PAST MEDICAL AND SURGICAL HISTORY: As listed in the HPI. ALLERGIES: No known drug allergies. SOCIAL HISTORY: Does not smoke . Smoked when he was younger . Drinks alcohol socially, and no drug use. FAMILY HISTORY: Noncontributory. REVIEW OF SYSTEMS: Unable to obtain. Patient is intubated. PHYSICAL EXAMINATION: VITAL SIGNS: Temperature 98, pulse 76, blood pressure 107/65, respirations 14, on mechanical ventilation. GENERAL: In no acute distress. HEENT: Anicteric sclerae. CARDIOVASCULAR: S1, S2, regular rate and rhythm. LUNGS: Bilaterally clear to auscultation. ABDOMEN: Soft, nontender. EXTREMITIES: No edema. LABORATORY: White blood cell count 13, hemoglobin and hematocrit 12/37, MCV 84, platelet count 311, INR 1. Hemoglobin on admission was 14. Sodium 137, potassium 3.7, BUN/creatinine 12/1.1, lactic acid was 9 on admission currently 2.3, alkaline phosphatase 132, ALT 17, AST 15. Urine 1+ protein, 2+ glucose, 1+ blood. Stool for occult blood was negative. He had an abdominal ultrasound which revealed cholelithiasis and fatty infiltration of the liver. Also had an abdominal x-ray which revealed nonspecific gas pattern, mildly distended small bowel loops, partial obstruction cannot be excluded on this study. Chest x-ray, no opacities were seen in the upper lung zones. IMPRESSION: Nausea, vomiting, followed by an episode of coffee ground emesis. Maybe secondary to a small Talya Minor tear. Peptic ulcer disease and angiectasias cannot be excluded at this time . I doubt this patient is having an overt gastrointestinal bleed. He is hemodynamically stable. RECOMMENDATION: Would start him on a Protonix infusion, serial CBCs q.8 hours, avoid NSAID if possible, treatment for his ischemic stroke as per the medical ICU team. This patient will be followed by the GI service. Would prefer to hold off on any invasive procedures at this time considering his acute CVA. DO CHEVY PIMENTEL/[id number]
--- NOTE | 2018-10-14 21:00 | CON.NEURO ---
Consult - Alcohol/Substance Use Hx Alcohol Use: Yes (socially) - Smoking History Smoking history: Unknown if ever smoked Have you smoked in the past 12 months: No Home Medications - Allergies Allergies/Adverse Reactions: Allergies Allergy/AdvReac Type Severity Reaction Status Date / Time No Allergy Information Allergy Verified 10/14/18 08:52 Available - Home Medications Home Medications: Ambulatory Orders Atorvastatin Calcium 10 mg PO DAILY 10/14/18 Tamsulosin HCl 0.4 mg DAILY 10/14/18 Physical Exam-Neuro Vital Signs: Vital Signs Temperature 98.8 F 10/14/18 15:50 Pulse Rate 90 10/14/18 18:00 Respiratory Rate 15 10/14/18 18:22 Blood Pressure 101/67 10/14/18 18:00 O2 Sat by Pulse Oximetry (%) 100 10/14/18 19:24 Labs: CBC, BMP 10/14/18 16:00 10/14/18 08:45 INR, PTT INR 1.08 (0.83-1.09) 10/14/18 08:43 Assessment/Plan CC Episode of seizure and ? Stroke HPI 88 year old male histoyr of HLD,BPH. He was found unresponsive, patient had tonic clonic seizure and enroute to hospital .He was intubated and thought to have right sided hemiparesis, on ct head no big stroke or cta of neck and brain was normal. Patient was transferred to icu and remain intubated, he is started on keppra 1 gm iv bid. [employer] has not had any seizure. He has no fever . He has been moving all ext, and was given bolus of sedation before I came to see him and he is deeply sedated. PAST MEDICAL HISTORY: as above PAST SURGICAL HISTORY: R knee repair, GIT - polyp and biopsy (family does not recall location) Social History: from [place] Smoking: when young Alcohol: socially Drugs: denies Family History: non-contributory Allergies No Allergy Information Available Allergy (Verified 10/14/18 08:52) HOME MEDICATIONS: Home Medications Medication Instructions Recorded atorvastatin 10mg qd tamsulosin 0.4mg qd 10/14/18 NEUROLOGICAL EXAMIANTION Sedated and on ventilator pupils small and reactive, corneal reflex and gag reflex is present mild withdrawal to upper extremity to painful stimuli planter is mute ct head , cta of neck and brain unremarkable Assessment 88 year old male history of BPH, HLD. Patient had new onset seizure etiology unclear ? meningioma vs stroke. Patient remain intubated and complete neuro exam is not possible. aspirin can be given due to GI bleed Plan: continue statin and hold apsirin - mri of brain with contrast once stable - eeg can also be obtained - continue icu care and would like to examine once he is extubated. - Continue keppra 1 gm iv bid for now Thanking you so much Fred Villeda MD
[2018-10-14 21:14] LABS: HEMATOCRIT 36.1 % (35.4-49); HEMOGLOBIN 12.4 GM/dL (11.7-16.9); MCH 28.9 pg (25.7-33.7); MCHC 34.4 g/dl (32.0-35.9); MEAN PLT VOLUME 8.6 fl (7.5-11.1); PLATELET COUNT 298 K/MM3 (134-434); RDW 13.7 % (11.9-15.9); WHITE BLOOD COUNT 10.8 K/mm3 (4.0-10.0)
[2018-10-14] MEDS: MUPIROCIN 2% TOPICAL OINTMENT FOR DECOLONIZATION NS SCH (21:18)
[2018-10-14] MEDS: CHLORHEXIDINE GLUCONATE 4% CLEANSER FOR DECOLONIZATION TP SCH (21:19)
[2018-10-14] MEDS ORDERED: PANTOPRAZOLE SODIUM 40 MG VIAL IVPUSH SCH (22:00)
[2018-10-14] MEDS ORDERED: HEPARIN NA (PORCINE) 5,000 UNITS/ML 1ML VIAL SQ SCH (22:00)
[2018-10-14] MEDS ORDERED: ATORVASTATIN CA 40 MG TABLET (FP) PO SCH (22:00)
[2018-10-14 22:15] LABS: COCAINE, UR NEGATIVE ng/ml (CUTOFF=300); METHADONE, UR NEGATIVE ng/ml (CUTOFF=300); OPIATES, URI NEGATIVE ng/ml (CUTOFF=300); PHENCYCLIDINE,URINE NEGATIVE ng/ml (CUTOFF=25); URINE AMPHETAMINES NEGATIVE ng/ml (CUTOFF=500); URINE BARBITURATES NEGATIVE ng/ml (CUTOFF=200); URINE BENZODIAZEPINES NEGATIVE ng/ml (CUTOFF=200)
[2018-10-15] MEDS: PANTOPRAZOLE SODIUM 80 MG in SODIUM CHLORIDE 100 ML IVPB SCH ×3 (02:14→13:29)
[2018-10-15] MEDS: SODIUM CHLORIDE 1,000 ML IV SCH ×2 (02:14→17:14)
[2018-10-15 06:14] LABS: BASO % 0.3 % (0-2.0); EOS % 0.1 % (0-4.5); HEMATOCRIT 33.9 % (35.4-49); HEMOGLOBIN 11.7 GM/dL (11.7-16.9); LYMPH % 17.4 % (8-40); MCH 28.6 pg (25.7-33.7); MCHC 34.5 g/dl (32.0-35.9); MEAN CELL VOLUME 82.8 fl (80-96); MEAN PLT VOLUME 8.4 fl (7.5-11.1); MONO % 7.4 % (3.8-10.2); NEUT % 74.8 % (42.8-82.8); PLATELET COUNT 279 K/MM3 (134-434); WHITE BLOOD COUNT 7.5 K/mm3 (4.0-10.0)
[2018-10-15 07:04] LABS: ANION GAP 6 MMOL/L (8-16); BLOOD UREA NITROGEN 13 mg/dL (7-18); CALCIUM 7.7 mg/dL (8.5-10.1); CHLORIDE 107 mmol/L (98-107); CO2 25 mmol/L (21-32); CREATININE 0.9 mg/dL (0.55-1.3); GLUCOSE,RANDOM 115 mg/dL (74-106); MAGNESIUM 2.1 mg/dL (1.8-2.4); PHOSPHOROUS 3.1 mg/dL (2.5-4.9); POTASSIUM 3.3 mmol/L (3.5-5.1); SODIUM 138 mmol/L (136-145)
--- NOTE | 2018-10-15 07:58 | PN ---
Physical Exam: SUBJECTIVE: Patient is an 88 year old male with a PMHx of BPH and HLD who was BIBEMS intubated and sedated. All information obtained from /daughter and ED staff at bedside. According to , patient had multiple episodes of nonbloody diarrhea and one episode of dark vomitus at 0700 10/14/18. Patient then became unresponsive, which prompted them to call 911. On the field patient was intubated due to apnea and hypoxia. As per and daughter, patient was in his usual state of health yesterday with no changes at baseline. However, patients daughter mentioned that in the last couple of weeks he would have some stuttered speech for a few seconds and would then go back to baseline. In the ED patient had OG tube placed and 300 mL of coffee-ground like material was aspirated. Patients denies any NSAID use Reports patient had Colonoscopy/EGD 15+ years ago and was found to have a "cancerous polyp." Otherwise, no other interventions or follow up with GI Patient's denies any history of Hepatitis or liver disease OBJECTIVE: Vital Signs Period Temp Pulse Resp BP Sys/Ludwig Pulse Ox Last 24 Hr 97.5 F-99.1 F 51-90 14-20 91-143/51-76 98-100 GENERAL: The patient is awake, alert, and fully oriented, in no acute distress. HEAD: Normal with no signs of trauma. EYES: PERRL, extraocular movements intact, sclera anicteric, conjunctiva clear. No ptosis. ENT: Nares patent, moist mucous membranes. NECK: Trachea midline, full range of motion, supple. LUNGS: Breath sounds equal, clear to auscultation bilaterally, no wheezes, no crackles, no accessory muscle use. HEART: Regular rate and rhythm, S1, S2 without murmur, rub or gallop. ABDOMEN: Soft, nontender, nondistended, normoactive bowel sounds, no guarding, no rebound, no hepatosplenomegaly, no masses. EXTREMITIES: 2+ pulses, warm, well-perfused, no edema. NEUROLOGICAL: Cranial nerves II through XII grossly intact. moves all fours. follows commands. PSYCH: sedated but arousable. SKIN: Warm, dry, normal turgor, no rashes or lesions noted Laboratory Results - last 24 hr 10/14/18 10/14/18 10/14/18 08:43 08:45 08:45 WBC 7.2 RBC 4.99 Hgb 14.3 Hct 43.0 MCV 86.1 MCH 28.6 MCHC 33.2 RDW 14.1 Plt Count 334 MPV 8.3 Absolute Neuts (auto) 5.1 Neutrophils % 70.9 Lymphocytes % 25.8 Monocytes % 2.7 L Eosinophils % 0.1 Basophils % 0.5 Nucleated RBC % 0 PT with INR 12.70 INR 1.08 Anticoagulation Therapy Puncture Site ABG pH ABG pCO2 at Pt Temp ABG pO2 at Pt Temp ABG HCO3 ABG O2 Sat (Measured) ABG O2 Content ABG Base Excess Roney Test Carboxyhemoglobin Methemoglobin O2 Delivery Device Oxygen Flow Rate Vent Mode Vent Rate Mechanical Rate Pressure Support Vent Sodium 137 Potassium 3.7 Chloride 102 Carbon Dioxide 24 Anion Gap 11 BUN 12 Creatinine 1.1 Creat Clearance w eGFR > 60 POC Glucometer Random Glucose 200 H Lactic Acid Calcium 8.7 Phosphorus Magnesium Total Bilirubin 0.7 AST 15 ALT 17 Alkaline Phosphatase 132 H Creatine Kinase 65 Troponin I < 0.02 Total Protein 7.5 Albumin 4.0 Triglycerides 147 Cholesterol 189 Total LDL Cholesterol 109 H HDL Cholesterol 54 Prolactin Urine Color Urine Appearance Urine pH Ur Specific [place] Urine Protein Urine Glucose (UA) Urine Ketones Urine Blood Urine Nitrite Urine Bilirubin Urine Urobilinogen Ur Leukocyte Esterase Urine WBC (Auto) Urine RBC (Auto) Ur Epithelial Cells Urine Bacteria Hyaline Casts Urine Mucus Stool Occult Blood Opiates Screen Methadone Screen Barbiturate Screen Phencyclidine Screen Ur Amphetamines Screen MDMA (Ecstasy) Screen Benzodiazepines Screen Cocaine Screen U Marijuana (THC) Screen Blood Type Antibody Screen 10/14/18 10/14/18 10/14/18 08:45 08:45 08:46 WBC RBC Hgb Hct MCV MCH MCHC RDW Plt Count MPV Absolute Neuts (auto) Neutrophils % Lymphocytes % Monocytes % Eosinophils % Basophils % Nucleated RBC % PT with INR INR Anticoagulation Therapy Puncture Site ABG pH ABG pCO2 at Pt Temp ABG pO2 at Pt Temp ABG HCO3 ABG O2 Sat (Measured) ABG O2 Content ABG Base Excess Roney Test Carboxyhemoglobin Methemoglobin O2 Delivery Device Oxygen Flow Rate Vent Mode Vent Rate Mechanical Rate Pressure Support Vent Sodium Potassium Chloride Carbon Dioxide Anion Gap BUN Creatinine Creat Clearance w eGFR POC Glucometer 195 Random Glucose Lactic Acid 9.0 H* Calcium Phosphorus Magnesium Total Bilirubin AST ALT Alkaline Phosphatase Creatine Kinase Troponin I Total Protein Albumin Triglycerides Cholesterol Total LDL Cholesterol HDL Cholesterol Prolactin Urine Color Urine Appearance Urine pH Ur Specific [place] Urine Protein Urine Glucose (UA) Urine Ketones Urine Blood Urine Nitrite Urine Bilirubin Urine Urobilinogen Ur Leukocyte Esterase Urine WBC (Auto) Urine RBC (Auto) Ur Epithelial Cells Urine Bacteria Hyaline Casts Urine Mucus Stool Occult Blood Opiates Screen Methadone Screen Barbiturate Screen Phencyclidine Screen Ur Amphetamines Screen MDMA (Ecstasy) Screen Benzodiazepines Screen Cocaine Screen U Marijuana (THC) Screen Blood Type O POSITIVE Antibody Screen Negative 10/14/18 10/14/18 10/14/18 09:05 09:17 10:32 WBC RBC Hgb Hct MCV MCH MCHC RDW Plt Count MPV Absolute Neuts (auto) Neutrophils % Lymphocytes % Monocytes % Eosinophils % Basophils % Nucleated RBC % PT with INR INR Anticoagulation Therapy No Result Required. Puncture Site Left radial ABG pH 7.30 L ABG pCO2 at Pt Temp 44.2 ABG pO2 at Pt Temp 121 H ABG HCO3 21.1 L ABG O2 Sat (Measured) 98.0 ABG O2 Content 18.2 ABG Base Excess -4.8 L Roney Test Positive Carboxyhemoglobin 0.4 Methemoglobin 0.4 O2 Delivery Device No Result Required. Oxygen Flow Rate Yes Vent Mode No Result Required. Vent Rate No Result Required. Mechanical Rate No Result Required. Pressure Support Vent No Result Required. Sodium Potassium Chloride Carbon Dioxide Anion Gap BUN Creatinine Creat Clearance w eGFR POC Glucometer Random Glucose Lactic Acid Calcium Phosphorus Magnesium Total Bilirubin AST ALT Alkaline Phosphatase Creatine Kinase Troponin I Total Protein Albumin Triglycerides Cholesterol Total LDL Cholesterol HDL Cholesterol Prolactin Urine Color Ltyellow Urine Appearance Slcloudy Urine pH 6.0 Ur Specific [place] 1.011 Urine Protein 1+ H Urine Glucose (UA) 2+ H Urine Ketones Trace H Urine Blood 1+ H Urine Nitrite Negative Urine Bilirubin Negative Urine Urobilinogen Negative Ur Leukocyte Esterase Negative Urine WBC (Auto) 2 Urine RBC (Auto) 1 Ur Epithelial Cells Rare Urine Bacteria Rare Hyaline Casts 3 Urine Mucus Rare Stool Occult Blood Opiates Screen Methadone Screen Barbiturate Screen Phencyclidine Screen Ur Amphetamines Screen MDMA (Ecstasy) Screen Benzodiazepines Screen Cocaine Screen U Marijuana (THC) Screen Blood Type O POSITIVE Antibody Screen 10/14/18 10/14/18 10/14/18 12:00 15:00 15:00 WBC RBC Hgb Hct MCV MCH MCHC RDW Plt Count MPV Absolute Neuts (auto) Neutrophils % Lymphocytes % Monocytes % Eosinophils % Basophils % Nucleated RBC % PT with INR INR Anticoagulation Therapy Puncture Site ABG pH ABG pCO2 at Pt Temp ABG pO2 at Pt Temp ABG HCO3 ABG O2 Sat (Measured) ABG O2 Content ABG Base Excess Roney Test Carboxyhemoglobin Methemoglobin O2 Delivery Device Oxygen Flow Rate Vent Mode Vent Rate Mechanical Rate Pressure Support Vent Sodium Potassium Chloride Carbon Dioxide Anion Gap BUN Creatinine Creat Clearance w eGFR POC Glucometer Random Glucose Lactic Acid 2.3 H* Calcium Phosphorus Magnesium Total Bilirubin AST ALT Alkaline Phosphatase Creatine Kinase Troponin I Total Protein Albumin Triglycerides Cholesterol Total LDL Cholesterol HDL Cholesterol Prolactin 39.6 H Urine Color Urine Appearance Urine pH Ur Specific [place] Urine Protein Urine Glucose (UA) Urine Ketones Urine Blood Urine Nitrite Urine Bilirubin Urine Urobilinogen Ur Leukocyte Esterase Urine WBC (Auto) Urine RBC (Auto) Ur Epithelial Cells Urine Bacteria Hyaline Casts Urine Mucus Stool Occult Blood Opiates Screen Methadone Screen Barbiturate Screen Phencyclidine Screen Ur Amphetamines Screen MDMA (Ecstasy) Screen Benzodiazepines Screen Cocaine Screen U Marijuana (THC) Screen Blood Type O POSITIVE Antibody Screen Negative 10/14/18 10/14/18 10/14/18 15:45 16:00 20:45 WBC 13.5 H RBC 4.44 Hgb 12.8 Hct 37.4 MCV 84.2 MCH 28.7 MCHC 34.1 RDW 13.7 Plt Count 311 MPV 8.2 Absolute Neuts (auto) 11.4 H Neutrophils % 84.7 H Lymphocytes % 9.4 D Monocytes % 5.6 D Eosinophils % 0.0 D Basophils % 0.3 Nucleated RBC % 0 PT with INR INR Anticoagulation Therapy Puncture Site ABG pH ABG pCO2 at Pt Temp ABG pO2 at Pt Temp ABG HCO3 ABG O2 Sat (Measured) ABG O2 Content ABG Base Excess Roney Test Carboxyhemoglobin Methemoglobin O2 Delivery Device Oxygen Flow Rate Vent Mode Vent Rate Mechanical Rate Pressure Support Vent Sodium Potassium Chloride Carbon Dioxide Anion Gap BUN Creatinine Creat Clearance w eGFR POC Glucometer Random Glucose Lactic Acid 1.4 Calcium Phosphorus Magnesium Total Bilirubin AST ALT Alkaline Phosphatase Creatine Kinase Troponin I Total Protein Albumin Triglycerides Cholesterol Total LDL Cholesterol HDL Cholesterol Prolactin Urine Color Urine Appearance Urine pH Ur Specific [place] Urine Protein Urine Glucose (UA) Urine Ketones Urine Blood Urine Nitrite Urine Bilirubin Urine Urobilinogen Ur Leukocyte Esterase Urine WBC (Auto) Urine RBC (Auto) Ur Epithelial Cells Urine Bacteria Hyaline Casts Urine Mucus Stool Occult Blood Negative Opiates Screen Methadone Screen Barbiturate Screen Phencyclidine Screen Ur Amphetamines Screen MDMA (Ecstasy) Screen Benzodiazepines Screen Cocaine Screen U Marijuana (THC) Screen Blood Type Antibody Screen 10/14/18 10/14/18 10/15/18 20:45 21:30 05:30 WBC 10.8 H 7.5 RBC 4.30 4.10 Hgb 12.4 11.7 Hct 36.1 33.9 L MCV 84.0 82.8 MCH 28.9 28.6 MCHC 34.4 34.5 RDW 13.7 14.0 Plt Count 298 279 MPV 8.6 8.4 Absolute Neuts (auto) 5.6 Neutrophils % 74.8 Lymphocytes % 17.4 D Monocytes % 7.4 Eosinophils % 0.1 D Basophils % 0.3 Nucleated RBC % 0 PT with INR INR Anticoagulation Therapy Puncture Site ABG pH ABG pCO2 at Pt Temp ABG pO2 at Pt Temp ABG HCO3 ABG O2 Sat (Measured) ABG O2 Content ABG Base Excess Roney Test Carboxyhemoglobin Methemoglobin O2 Delivery Device Oxygen Flow Rate Vent Mode Vent Rate Mechanical Rate Pressure Support Vent Sodium Potassium Chloride Carbon Dioxide Anion Gap BUN Creatinine Creat Clearance w eGFR POC Glucometer Random Glucose Lactic Acid Calcium Phosphorus Magnesium Total Bilirubin AST ALT Alkaline Phosphatase Creatine Kinase Troponin I Total Protein Albumin Triglycerides Cholesterol Total LDL Cholesterol HDL Cholesterol Prolactin Urine Color Urine Appearance Urine pH Ur Specific [place] Urine Protein Urine Glucose (UA) Urine Ketones Urine Blood Urine Nitrite Urine Bilirubin Urine Urobilinogen Ur Leukocyte Esterase Urine WBC (Auto) Urine RBC (Auto) Ur Epithelial Cells Urine Bacteria Hyaline Casts Urine Mucus Stool Occult Blood Opiates Screen Negative Methadone Screen Negative Barbiturate Screen Negative Phencyclidine Screen Negative Ur Amphetamines Screen Negative MDMA (Ecstasy) Screen Negative Benzodiazepines Screen Negative Cocaine Screen Negative U Marijuana (THC) Screen Negative Blood Type Antibody Screen 10/15/18 05:30 WBC RBC Hgb Hct MCV MCH MCHC RDW Plt Count MPV Absolute Neuts (auto) Neutrophils % Lymphocytes % Monocytes % Eosinophils % Basophils % Nucleated RBC % PT with INR INR Anticoagulation Therapy Puncture Site ABG pH ABG pCO2 at Pt Temp ABG pO2 at Pt Temp ABG HCO3 ABG O2 Sat (Measured) ABG O2 Content ABG Base Excess Roney Test Carboxyhemoglobin Methemoglobin O2 Delivery Device Oxygen Flow Rate Vent Mode Vent Rate Mechanical Rate Pressure Support Vent Sodium 138 Potassium 3.3 L Chloride 107 Carbon Dioxide 25 Anion Gap 6 L BUN 13 Creatinine 0.9 Creat Clearance w eGFR > 60 POC Glucometer Random Glucose 115 H Lactic Acid Calcium 7.7 L Phosphorus 3.1 Magnesium 2.1 Total Bilirubin AST ALT Alkaline Phosphatase Creatine Kinase Troponin I Total Protein Albumin Triglycerides Cholesterol Total LDL Cholesterol HDL Cholesterol Prolactin Urine Color Urine Appearance Urine pH Ur Specific [place] Urine Protein Urine Glucose (UA) Urine Ketones Urine Blood Urine Nitrite Urine Bilirubin Urine Urobilinogen Ur Leukocyte Esterase Urine WBC (Auto) Urine RBC (Auto) Ur Epithelial Cells Urine Bacteria Hyaline Casts Urine Mucus Stool Occult Blood Opiates Screen Methadone Screen Barbiturate Screen Phencyclidine Screen Ur Amphetamines Screen MDMA (Ecstasy) Screen Benzodiazepines Screen Cocaine Screen U Marijuana (THC) Screen Blood Type Antibody Screen Active Medications Generic Name Dose Route Start Last Admin Trade Name Freq PRN Reason Stop Dose Admin Atorvastatin Calcium 40 mg 10/14/18 22:00 10/14/18 21:20 Lipitor - PO 40 mg HS BARRETT Administration Chlorhexidine Gluconate 1 applic 10/14/18 22:00 10/14/18 21:19 Hibiclens For Decolonization - TP 1 applic HS BARRETT Administration Propofol 1,000,000 mcg in 100 mls @ 2.994 mls/hr 10/14/18 13:45 10/14/18 21: 20 Diprivan - IVPB 25 mcg/kg/min TITR BARRETT 14.969 mls/hr Administration Protocol 5 MCG/KG/MIN Ceftriaxone Sodium 1 gm/ 50 mls @ 100 mls/hr 10/14/18 16:15 10/14/18 17:53 Dextrose IVPB 100 mls/hr DAILY BARRETT Administration Sodium Chloride 1,000 mls @ 100 mls/hr 10/14/18 16:12 10/15/18 02:14 Normal Saline - IV 100 mls/hr ASDIR BARRETT Administration Pantoprazole Sodium 80 mg/ 100 mls @ 10 mls/hr 10/14/18 18:00 10/15/18 05:50 Sodium Chloride IVPB Not Given Q10H BARRETT 8 MG/HR Levetiracetam 1,000 mg 10/14/18 14:45 10/14/18 21:19 Keppra Injection - IVPB 1,000 mg BID BARRETT Administration Mupirocin 1 applic 10/14/18 22:00 10/14/18 21:18 Bactroban Ointment (For Decolonization) - NS 10/19/18 21:59 1 applic BID BARRETT Administration IMAGES: Head CT (10/14/18): There is moderate volume loss and ventricular dilatation. Moderate chronic microvascular ischemic changes are present. There is a small dural based/extra axial right parafalcine hyperdense lesion measuring 8 x 6 mm suggestive of a meningioma. Otherwise, no mass lesion, gross acute infarct or intracranial hemorrhage are identified. Mild deviation of the nasal septum towards the left. Minimal mucosal thickening in the right maxillary antrum. Otherwise, the visualized paranasal sinuses and mastoid air cells are well aerated. Calcification of the cavernous carotid arteries are noted. The calvarium is intact . Note is made of mild soft tissue swelling of the scalp over right side of the forehead. Impression: Moderate atrophy. 8 x 6 mm right anterior parafalcine hyperdense lesion with calcification likely representing a meningioma. Otherwise, no mass lesion or gross acute intracranial pathology is identified. Brain and Neck CTA (10/14/18): no evidence of significant large vessel obstruction. 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 ASSESSMENT/PLAN: Patient is an 88 year old male who was BIBEMS for altered mental status, coffee ground emesis and witnessed seizure tonic/clonic seizure by . Patient was intubated on the field and admitted to ICU for further monitoring and management. CTA head and neck positive for acute left basal ganglia infarct. 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 -Prolactin positive -Levetiracetam 1000mg BID IVPB ordered, as per Neuro -No indication for emergent EEG, as per Neuro -No seizure over night -Continue to monitor for further seizure activity. PULMONARY #Acute Hypoxic Respiratory Failure -Possibly secondary to Aspiration Pneumonia -Extubated 10/15/18 -Chest X-Ray revealed Left costophrenic blunting but may be due to atelectasis vs aspiration. -Ceftriaxone 1000mg IVPB daily ordered, as per primary team GASTROENTEROLOGY #Hematemesis -Possible UGI bleed. OG tube placed in ED and 300 mL of coffee-ground like material was aspirated -Minimal fluid suctioned from OG tube today -OG tube removed today 10/15/18 -Protonix drip -CBC q8 hours per GI -GI consult placed -NPO for now -Hold AC and Aspirin -Monitor for overt bleeding. Will likely require EGD once patient stable #Possible Partial Bowel Obstruction -OG tube pulled with ET tube -Abdominal X-Ray revealed possible partial bowel obstruction -NG tube placed for oral contrast -CT A/P pending to evaluate for possible SBO -Surgery consult placed #Diarrhea -Patients family report one day history of nonbloody diarrhea -C.Diff ordered -Continue to monitor electrolytes #Elevated Alkaline Phosphatase -LFT's and Bili wnl -Abdominal US report: diffuse fatty infiltration of liver. cholelithiasis without cholecystitis. -Continue to monitor CARDIOLOGY #HLD -Continue Atorvastatin 80mg daily INFECTIOUS DISEASE #Lactic Acidosis -9>>2.3>>1.4 -Likely secondary to seizure activity -Patient currently on 100cc/hr IV NS #Possible Aspiration Pneumonia -Afebrile with no leukocytosis -Ceftriaxone 1gm IVPB daily started, as per primary team -Blood cultures negative at 24 hours -Continue to monitor F/E/N -IV NS @100cc/hr -Electrolytes wnl -NPO Prophylaxis -No AC due to possible GI bleed -Protonix drip for GI Disposition -Full code. is HCP -Remains intubated and requires ICU monitoring Visit type - Emergency Visit Emergency Visit: Yes ED Registration Date: 10/14/18 Care time: The patient presented to the Emergency Department on the above date and was hospitalized for further evaluation of their emergent condition. - New Patient This patient is new to me today: Yes Date on this admission: 10/15/18 - Critical Care Critical Care patient: Yes Total Critical Care Time (in minutes): 35 Critical Care Statement: The care of this patient involved high complexity decision making to prevent further life threatening deterioration of the patient 's condition and/or to evaluate & treat vital organ system(s) failure or risk of failure. - Discharge Referral Referred to [facility] No
--- NOTE | 2018-10-15 08:33 | PN ---
Teaching Attending Note Name of Resident: Ravindra Desai ATTENDING PHYSICIAN STATEMENT I saw and evaluated the patient. I reviewed the resident's note and discussed the case with the resident. I agree with the resident's findings and plan as documented. SUBJECTIVE: Patient is in ICU, continues to be intubated. weaning trial for extubation. OBJECTIVE: Vital Signs Temperature 99.1 F 10/15/18 02:00 Pulse Rate 51 L 10/15/18 06:00 Respiratory Rate 16 10/15/18 07:52 Blood Pressure 102/62 10/15/18 06:00 O2 Sat by Pulse Oximetry (%) 100 10/15/18 07:52 CONSTITUTIONAL: Intubated, sedated HEAD: Normocephalic; atraumatic EYES: Pupils are reactive , ENMT: ET tube in place NECK: Supple; non-tender; CARD: Normal S1, S2; no murmurs, rubs, or gallops RESP: decreased BS BL , intubated on the vent. ABD: Soft, non-distended; non-tender. EXT:pulses are positive NEURO: intubated CBCD WBC 7.5 K/mm3 (4.0-10.0) 10/15/18 05:30 RBC 4.10 M/mm3 (4.00-5.60) 10/15/18 05:30 Hgb 11.7 GM/dL (11.7-16.9) 10/15/18 05:30 Hct 33.9 % (35.4-49) L 10/15/18 05:30 MCV 82.8 fl (80-96) 10/15/18 05:30 MCHC 34.5 g/dl (32.0-35.9) 10/15/18 05:30 RDW 14.0 % (11.9-15.9) 10/15/18 05:30 Plt Count 279 K/MM3 (134-434) 10/15/18 05:30 MPV 8.4 fl (7.5-11.1) 10/15/18 05:30 CMP Sodium 138 mmol/L (136-145) 10/15/18 05:30 Potassium 3.3 mmol/L (3.5-5.1) L 10/15/18 05:30 Chloride 107 mmol/L (98-107) 10/15/18 05:30 Carbon Dioxide 25 mmol/L (21-32) 10/15/18 05:30 Anion Gap 6 MMOL/L (8-16) L 10/15/18 05:30 BUN 13 mg/dL (7-18) 10/15/18 05:30 Creatinine 0.9 mg/dL (0.55-1.3) 10/15/18 05:30 Creat Clearance w eGFR > 60 (>60) 10/15/18 05:30 Random Glucose 115 mg/dL (74-106) H 10/15/18 05:30 Calcium 7.7 mg/dL (8.5-10.1) L 10/15/18 05:30 Total Bilirubin 0.7 mg/dL (0.2-1) 10/14/18 08:45 AST 15 U/L (15-37) 10/14/18 08:45 ALT 17 U/L (13-61) 10/14/18 08:45 Alkaline Phosphatase 132 U/L (45-117) H 10/14/18 08:45 Total Protein 7.5 g/dl (6.4-8.2) 10/14/18 08:45 Albumin 4.0 g/dl (3.4-5.0) 10/14/18 08:45 CARDIAC ENZYMES Creatine Kinase 65 U/L (26-308) 10/14/18 08:45 Troponin I < 0.02 ng/ml (0.00-0.05) 10/14/18 08:45 Current Medications Generic Name Dose Route Start Last Admin Trade Name Freq PRN Reason Stop Dose Admin Atorvastatin Calcium 40 mg 10/14/18 22:00 10/14/18 21:20 Lipitor - PO 40 mg HS BARERTT Administration Chlorhexidine Gluconate 1 applic 10/14/18 22:00 10/14/18 21:19 Hibiclens For Decolonization - TP 1 applic HS BARRETT Administration Propofol 1,000,000 mcg in 100 mls @ 2.994 mls/hr 10/14/18 13:45 10/14/18 21: 20 Diprivan - IVPB 25 mcg/kg/min TITR BARRETT 14.969 mls/hr Administration Protocol 5 MCG/KG/MIN Ceftriaxone Sodium 1 gm/ 50 mls @ 100 mls/hr 10/14/18 16:15 10/14/18 17:53 Dextrose IVPB 100 mls/hr DAILY BARRETT Administration Sodium Chloride 1,000 mls @ 100 mls/hr 10/14/18 16:12 10/15/18 02:14 Normal Saline - IV 100 mls/hr ASDIR BARRETT Administration Pantoprazole Sodium 80 mg/ 100 mls @ 10 mls/hr 10/14/18 18:00 10/15/18 05:50 Sodium Chloride IVPB Not Given Q10H BARRETT 8 MG/HR Levetiracetam 1,000 mg 10/14/18 14:45 10/14/18 21:19 Keppra Injection - IVPB 1,000 mg BID BARRETT Administration Mupirocin 1 applic 10/14/18 22:00 10/14/18 21:18 Bactroban Ointment (For Decolonization) - NS 10/19/18 21:59 1 applic BID BARRETT Administration Home Medications Medication Instructions Recorded Atorvastatin Calcium 10 mg PO DAILY 10/14/18 Tamsulosin HCl 0.4 mg DAILY 10/14/[address] angiography Clinical information: right-sided hemiplegia Multiplanar imaging was performed following the intravenous administration of nonionic contrast. Individual partition images as well as projection and reformatted images are reviewed. The carotid and vertebral basilar circulations demonstrate no CT evidence of large vessel stenosis or occlusion. No discrete intraluminal defect is seen. There is no definite aneurysm. No extrinsic abnormality is noted. A small nonhemorrhagic infarct is seen within the left basal ganglia/ frontal luna radiata which is probably acute. As noted on recently performed noncontrast CT a partially calcified 1.3 x 0.8 cm right frontal parafalcine meningioma is noted at the high convexity level No perilesional edema is seen. The extracranial carotid arteries demonstrate no discrete stenosis. Moderate calcified atherosclerotic plaque is noted at the level of the proximal left internal carotid artery. The extracranial vertebral arteries are patent bilaterally. No definite vertebral artery stenosis is noted. Evaluation of the vertebral artery origins is somewhat limited due to partially obscuring beam hardening artifact. An endotracheal tube is seen in place with the tip within the upper aspect of the right main stem bronchus. ER staff is aware of this finding. IMPRESSION: The intracranial CT exam demonstrates no evidence of large vessel stenosis or occlusion. No intraluminal defect is identified. No extracranial carotid artery stenosis is seen. Moderate calcified atherosclerotic plaque is noted along the proximal left internal carotid artery. The extracranial vertebral arteries are patent without obvious stenosis. A small left basal ganglia/frontal luna radiata infarct is noted which is probably acute. Brain CTA: Clinical information: right-sided hemiplegia Multiplanar imaging was performed following the intravenous administration of nonionic contrast. Individual partition images as well as projection and reformatted images are reviewed. The carotid and vertebral basilar circulations demonstrate no CT evidence of large vessel stenosis or occlusion. No discrete intraluminal defect is seen. There is no definite aneurysm. No extrinsic abnormality is noted. A small nonhemorrhagic infarct is seen within the left basal ganglia/frontal luna radiata which is probably acute. As noted on recently performed noncontrast CT a partially calcified 1.3 x 0.8 cm right frontal parafalcine meningioma is noted at the high convexity level No perilesional edema is seen. The extracranial carotid arteries demonstrate no discrete stenosis. Moderate calcified atherosclerotic plaque is noted at the level of the proximal left internal carotid artery. The extracranial vertebral arteries are patent bilaterally. No definite vertebral artery stenosis is noted. Evaluation of the vertebral artery origins is somewhat limited due to partially obscuring beam hardening artifact. An endotracheal tube is seen in place with the tip within the upper aspect of the right main stem bronchus. ER staff is aware of this finding.Impression: The intracranial CT exam demonstrates no evidence of large vessel stenosis or occlusion. No intraluminal defect is identified. No extracranial carotid artery stenosis is seen. Moderate calcified atherosclerotic plaque is noted along the proximal left internal carotid artery. The extracranial vertebral arteries are patent without obvious stenosis. A small left basal ganglia/frontal luna radiata infarct is noted which is probably acute. Correlate with follow-up MRI/CT. CT abdoman and pelvis: EXAM#: TYPE/EXAM: RESULT: [id number] CT/ABDOMEN PELVIS CT W/O CONTR HISTORY PROVIDED: Rule out small bowel obstruction TECHNIQUE: Sequential axial images were obtained from the domes of the diaphragm through the symphysis pubis following the administration of oral contrast material. Bilateral pleural effusions and basilar atelectasis is noted. The heart is enlarged. A nasogastric tube is noted within the stomach. The liver, spleen, pancreas, adrenal glands and kidneys demonstrate no significant abnormalities. Gallstones are identified within the gallbladder. There is no evidence of intra- abdominal or retroperitoneal lymphadenopathy or fluid collections. There is no evidence of pneumoperitoneum, bowel obstruction or intra-abdominal abscess. Examination of the pelvis demonstrates no evidence of pelvic masses, fluid collections or lymphadenopathy. The prostate gland is enlarged measuring 5.9 x 5.3 x 6.4 cm. There is no evidence of acute bony abnormalities. IMPRESSION: 1. Bilateral pleural effusions and basilar atelectasis. 2. Cholelithiasis. 3. Hepatic enlargement. 4. No evidence of bowel obstruction or acute pathology within the abdomen or pelvis. Please see above discussion. Reported By: Uriel Seymour MD 10/15/18195210/14/18 08:30 Blood - Peripheral Venous Blood Culture - Preliminary NO GROWTH OBTAINED AFTER 24 HOURS, INCUBATION TO CONTINUE FOR 4 DAYS. 10/14/18 09:17 Blood - Peripheral Venous Blood Culture - Preliminary NO GROWTH OBTAINED AFTER 24 HOURS, INCUBATION TO CONTINUE FOR 4 DAYS. ASSESSMENT AND PLAN: Patient is an 88 year old male with a PMHx of BPH and HLD who was intubated on the field due to apnea and hypoxia . #Acute hypoxic Respiratory Failure: s/p intubation in ICU. 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 #Hyperlipidemia: on Lipitor 80mg qhs # Hx of BPH #elevated BS: accu check with sliding scale. DVT/GI prophylaxis ICU monitoring
--- NOTE | 2018-10-15 08:42 | PN ---
Progress Note (short form) - Note Progress Note: With ? of possible SBO on initial AXR, BUN of 13 and stable H/H (doubt baseline hgb 14, likely hemoconcentrated on admission) obtain CT of A/P and consider surgical evaluation
[2018-10-15 09:13] LABS: ALBUMIN 3.1 g/dl (3.4-5.0)
[2018-10-15] MEDS ORDERED: PT OWN MED DRAWER 7, Y5N ONE ×2 (09:32→12:08)
[2018-10-15] MEDS ORDERED: cefTRIAXone SODIUM 1 GM VIAL ONE (09:33)
[2018-10-15] MEDS ORDERED: DEXTROSE 5%-WATER - 50 ML IVPB ONE (09:33)
[2018-10-15] MEDS: KCL 10 MEQ IVPB 10 MEQ/100 ML INFUS.BAG IVPB SCH ×3 (09:41→12:09)
[2018-10-15] MEDS: MUPIROCIN 2% TOPICAL OINTMENT FOR DECOLONIZATION NS SCH ×2 (09:42→21:43)
[2018-10-15] MEDS: levETIRAcetam 500 MG/5 ML INJECTION VIAL IVPB SCH ×2 (09:46→21:44)
[2018-10-15] MEDS: CEFTRIAXONE 1 GM in DEXTROSE 5%-WATER - 50 ML IVPB SCH (09:47)
[2018-10-15] MEDS ORDERED: ASPIRIN 300 MG SUPP.RECT RC SCH (10:00)
[2018-10-15] MEDS ORDERED: PANTOPRAZOLE SODIUM 40 MG VIAL IVPUSH SCH (10:00)
--- NOTE | 2018-10-15 10:54 | EKG ---
Test Reason : Blood Pressure : / mmHG Vent. Rate : 088 BPM Atrial Rate : 088 BPM P-R Int : 196 ms QRS Dur : 092 ms QT Int : 380 ms P-R-T Axes : 061 -09 062 degrees QTc Int : 459 ms SINUS RHYTHM WITH OCCASIONAL PREMATURE VENTRICULAR COMPLEXES CANNOT RULE OUT ANTERIOR INFARCT , AGE UNDETERMINED ABNORMAL ECG NO PREVIOUS ECGS AVAILABLE Confirmed by SHANIA ALMODOVAR MD ([id number]) on 10/15/2018 10:53:58 AM Referred By: Confirmed By:SHANIA ALMODOVAR MD
--- NOTE | 2018-10-15 12:07 | PN ---
Teaching Attending Note Name of Resident: Rosio Martinez ATTENDING PHYSICIAN STATEMENT I saw and evaluated the patient. I reviewed the resident's note and discussed the case with the resident. I agree with the resident's findings and plan as documented. SUBJECTIVE: Patient seen and examined in the ICU. Intubated and off sedation. AC Mode of vent, 40% FiO2. Awakens to voice and is able to follow commands. No pressors. Intake & Output 10/12/18 10/13/18 10/14/18 10/15/18 23:59 23:59 23:59 23:59 Intake Total 750 1444 Output Total 1300 500 Balance -550 944 Weight 188 lb 1 oz 184 lb 6 oz Last Vital Signs Temp Pulse Resp BP Pulse Ox 98.9 F 68 15 139/67 100 10/15/18 10:19 10/15/18 10:19 10/15/18 11:19 10/15/18 10:19 10/15/18 10:44 Active Medications Atorvastatin Calcium (Lipitor -) 80 mg PO HS BARRETT Chlorhexidine Gluconate (Hibiclens For Decolonization -) 1 applic TP HS [facility] Last Admin: 10/14/18 21:19 Dose: 1 applic Propofol (Diprivan -) 1,000,000 mcg in 100 mls @ 2.994 mls/hr IVPB TITR BARRETT; Protocol Last Admin: 10/14/18 21:20 Dose: 25 mcg/kg/min, 14.969 mls/hr Ceftriaxone Sodium 1 gm/ (Dextrose) 50 mls @ 100 mls/hr IVPB DAILY [facility] Last Admin: 10/15/18 09:47 Dose: 100 mls/hr Sodium Chloride (Normal Saline -) 1,000 mls @ 100 mls/hr IV ASDIR [facility] Last Admin: 10/15/18 02:14 Dose: 100 mls/hr Pantoprazole Sodium 80 mg/ (Sodium Chloride) 100 mls @ 10 mls/hr IVPB Q10H [facility] Last Admin: 10/15/18 05:50 Dose: Not Given Levetiracetam (Keppra Injection -) 1,000 mg IVPB BID [facility] Last Admin: 10/15/18 09:46 Dose: 1,000 mg Mupirocin (Bactroban Ointment (For Decolonization) -) 1 applic NS BID [facility] Stop: 10/19/18 21:59 Last Admin: 10/15/18 09:42 Dose: 1 applic OBJECTIVE: Gen: intubated, sleepy but easily arousable Heart: RRR Lung: few scattered rhonchi Abd: soft, nontender Ext: no edema Laboratory Results - last 24 hr 10/14/18 10/14/18 10/14/18 12:00 15:00 15:00 WBC RBC Hgb Hct MCV MCH MCHC RDW Plt Count MPV Absolute Neuts (auto) Neutrophils % Lymphocytes % Monocytes % Eosinophils % Basophils % Nucleated RBC % Sodium Potassium Chloride Carbon Dioxide Anion Gap BUN Creatinine Creat Clearance w eGFR Random Glucose Lactic Acid 2.3 H* Calcium Phosphorus Magnesium Albumin Prolactin 39.6 H Stool Occult Blood Opiates Screen Methadone Screen Barbiturate Screen Phencyclidine Screen Ur Amphetamines Screen MDMA (Ecstasy) Screen Benzodiazepines Screen Cocaine Screen U Marijuana (THC) Screen Blood Type O POSITIVE Antibody Screen Negative 10/14/18 10/14/18 10/14/18 15:45 16:00 20:45 WBC 13.5 H RBC 4.44 Hgb 12.8 Hct 37.4 MCV 84.2 MCH 28.7 MCHC 34.1 RDW 13.7 Plt Count 311 MPV 8.2 Absolute Neuts (auto) 11.4 H Neutrophils % 84.7 H Lymphocytes % 9.4 D Monocytes % 5.6 D Eosinophils % 0.0 D Basophils % 0.3 Nucleated RBC % 0 Sodium Potassium Chloride Carbon Dioxide Anion Gap BUN Creatinine Creat Clearance w eGFR Random Glucose Lactic Acid 1.4 Calcium Phosphorus Magnesium Albumin Prolactin Stool Occult Blood Negative Opiates Screen Methadone Screen Barbiturate Screen Phencyclidine Screen Ur Amphetamines Screen MDMA (Ecstasy) Screen Benzodiazepines Screen Cocaine Screen U Marijuana (THC) Screen Blood Type Antibody Screen 10/14/18 10/14/18 10/15/18 20:45 21:30 05:30 WBC 10.8 H 7.5 RBC 4.30 4.10 Hgb 12.4 11.7 Hct 36.1 33.9 L MCV 84.0 82.8 MCH 28.9 28.6 MCHC 34.4 34.5 RDW 13.7 14.0 Plt Count 298 279 MPV 8.6 8.4 Absolute Neuts (auto) 5.6 Neutrophils % 74.8 Lymphocytes % 17.4 D Monocytes % 7.4 Eosinophils % 0.1 D Basophils % 0.3 Nucleated RBC % 0 Sodium Potassium Chloride Carbon Dioxide Anion Gap BUN Creatinine Creat Clearance w eGFR Random Glucose Lactic Acid Calcium Phosphorus Magnesium Albumin Prolactin Stool Occult Blood Opiates Screen Negative Methadone Screen Negative Barbiturate Screen Negative Phencyclidine Screen Negative Ur Amphetamines Screen Negative MDMA (Ecstasy) Screen Negative Benzodiazepines Screen Negative Cocaine Screen Negative U Marijuana (THC) Screen Negative Blood Type Antibody Screen 10/15/18 05:30 WBC RBC Hgb Hct MCV MCH MCHC RDW Plt Count MPV Absolute Neuts (auto) Neutrophils % Lymphocytes % Monocytes % Eosinophils % Basophils % Nucleated RBC % Sodium 138 Potassium 3.3 L Chloride 107 Carbon Dioxide 25 Anion Gap 6 L BUN 13 Creatinine 0.9 Creat Clearance w eGFR > 60 Random Glucose 115 H Lactic Acid Calcium 7.7 L Phosphorus 3.1 Magnesium 2.1 Albumin 3.1 L Prolactin Stool Occult Blood Opiates Screen Methadone Screen Barbiturate Screen Phencyclidine Screen Ur Amphetamines Screen MDMA (Ecstasy) Screen Benzodiazepines Screen Cocaine Screen U Marijuana (THC) Screen Blood Type Antibody Screen ASSESSMENT AND PLAN: Acute CVA Seizure Acute Respiratory Failure Lactic Acidosis Atelectasis Hyperlipidemia BPH R/O SBO - Wean to extubate - antiepileptics per Neuro - IVF - Hold all sedation - Recommended by Neuro for MRI brain when extubated - For CT Abdomen/Pelvis to assess for possible SBO - DVT/GI prophylaxis - ICU monitoring Dr Dyson critical care time spent in reviewing chart, evaluating patient and formulating plan 35 min
--- NOTE | 2018-10-15 15:07 | PN ---
Physical Exam: SUBJECTIVE: Patient seen and examined at bedside. Sedated with Og tube in place. Family at bedside. Questions answered. OBJECTIVE: Vital Signs Period Temp Pulse Resp BP Sys/Ludwig Pulse Ox Last 24 Hr 98.8 F-99.1 F 51-90 14-20 90-139/54-78 98-100 GENERAL: Sedated HEENT: Atraumatic/Normocephalic, OG tube in place. EYES: Pupils reactive LUNGS: CTAB Anteriorly HEART: RRR nl s1s2 ABDOMEN: No facial grimacing appeciated when palpated EXTREMITIES: No CCE. SCD's PSYCH: Normal mood, normal affect. SKIN: Warm, dry, normal turgor, no rashes or lesions noted Laboratory Results - last 24 hr 10/14/18 10/14/18 10/14/18 12:00 15:00 15:00 WBC RBC Hgb Hct MCV MCH MCHC RDW Plt Count MPV Absolute Neuts (auto) Neutrophils % Lymphocytes % Monocytes % Eosinophils % Basophils % Nucleated RBC % Sodium Potassium Chloride Carbon Dioxide Anion Gap BUN Creatinine Creat Clearance w eGFR Random Glucose Lactic Acid 2.3 H* Calcium Phosphorus Magnesium Albumin Prolactin 39.6 H Stool Occult Blood Opiates Screen Methadone Screen Barbiturate Screen Phencyclidine Screen Ur Amphetamines Screen MDMA (Ecstasy) Screen Benzodiazepines Screen Cocaine Screen U Marijuana (THC) Screen Blood Type O POSITIVE Antibody Screen Negative 10/14/18 10/14/18 10/14/18 15:45 16:00 20:45 WBC 13.5 H RBC 4.44 Hgb 12.8 Hct 37.4 MCV 84.2 MCH 28.7 MCHC 34.1 RDW 13.7 Plt Count 311 MPV 8.2 Absolute Neuts (auto) 11.4 H Neutrophils % 84.7 H Lymphocytes % 9.4 D Monocytes % 5.6 D Eosinophils % 0.0 D Basophils % 0.3 Nucleated RBC % 0 Sodium Potassium Chloride Carbon Dioxide Anion Gap BUN Creatinine Creat Clearance w eGFR Random Glucose Lactic Acid 1.4 Calcium Phosphorus Magnesium Albumin Prolactin Stool Occult Blood Negative Opiates Screen Methadone Screen Barbiturate Screen Phencyclidine Screen Ur Amphetamines Screen MDMA (Ecstasy) Screen Benzodiazepines Screen Cocaine Screen U Marijuana (THC) Screen Blood Type Antibody Screen 10/14/18 10/14/18 10/15/18 20:45 21:30 05:30 WBC 10.8 H 7.5 RBC 4.30 4.10 Hgb 12.4 11.7 Hct 36.1 33.9 L MCV 84.0 82.8 MCH 28.9 28.6 MCHC 34.4 34.5 RDW 13.7 14.0 Plt Count 298 279 MPV 8.6 8.4 Absolute Neuts (auto) 5.6 Neutrophils % 74.8 Lymphocytes % 17.4 D Monocytes % 7.4 Eosinophils % 0.1 D Basophils % 0.3 Nucleated RBC % 0 Sodium Potassium Chloride Carbon Dioxide Anion Gap BUN Creatinine Creat Clearance w eGFR Random Glucose Lactic Acid Calcium Phosphorus Magnesium Albumin Prolactin Stool Occult Blood Opiates Screen Negative Methadone Screen Negative Barbiturate Screen Negative Phencyclidine Screen Negative Ur Amphetamines Screen Negative MDMA (Ecstasy) Screen Negative Benzodiazepines Screen Negative Cocaine Screen Negative U Marijuana (THC) Screen Negative Blood Type Antibody Screen 10/15/18 05:30 WBC RBC Hgb Hct MCV MCH MCHC RDW Plt Count MPV Absolute Neuts (auto) Neutrophils % Lymphocytes % Monocytes % Eosinophils % Basophils % Nucleated RBC % Sodium 138 Potassium 3.3 L Chloride 107 Carbon Dioxide 25 Anion Gap 6 L BUN 13 Creatinine 0.9 Creat Clearance w eGFR > 60 Random Glucose 115 H Lactic Acid Calcium 7.7 L Phosphorus 3.1 Magnesium 2.1 Albumin 3.1 L Prolactin Stool Occult Blood Opiates Screen Methadone Screen Barbiturate Screen Phencyclidine Screen Ur Amphetamines Screen MDMA (Ecstasy) Screen Benzodiazepines Screen Cocaine Screen U Marijuana (THC) Screen Blood Type Antibody Screen Active Medications Generic Name Dose Route Start Last Admin Trade Name Freq PRN Reason Stop Dose Admin Atorvastatin Calcium 80 mg 10/15/18 22:00 Lipitor - PO HS BARRETT Chlorhexidine Gluconate 1 applic 10/14/18 22:00 10/14/18 21:19 Hibiclens For Decolonization - TP 1 applic HS BARRETT Administration Propofol 1,000,000 mcg in 100 mls @ 2.994 mls/hr 10/14/18 13:45 10/15/18 09: 35 Diprivan - IVPB 0 mcg/kg/min TITR BARRETT 0 mls/hr Titration Protocol 5 MCG/KG/MIN Ceftriaxone Sodium 1 gm/ 50 mls @ 100 mls/hr 10/14/18 16:15 10/15/18 09:47 Dextrose IVPB 100 mls/hr DAILY BARRETT Administration Sodium Chloride 1,000 mls @ 100 mls/hr 10/14/18 16:12 10/15/18 02:14 Normal Saline - IV 100 mls/hr ASDIR BARRETT Administration Pantoprazole Sodium 80 mg/ 100 mls @ 10 mls/hr 10/14/18 18:00 10/15/18 13:29 Sodium Chloride IVPB 10 mls/hr Q10H BARRETT Administration 8 MG/HR Levetiracetam 1,000 mg 10/14/18 14:45 10/15/18 09:46 Keppra Injection - IVPB 1,000 mg BID BARRETT Administration Mupirocin 1 applic 10/14/18 22:00 10/15/18 09:42 Bactroban Ointment (For Decolonization) - NS 10/19/18 21:59 1 applic BID BARRETT Administration ASSESSMENT/PLAN: 88 y/o M with PMH BPH, HLD, who presents to the ED after he was found unresponsive at home by his this AM. #L Basal Ganglia Ischemic Stroke -ECHO---> L Ventricular size, function, thickness WNL -carotids already done via head CTA- moderate calc plaque prox L ICA -lipitor increaed to 80 mg through NGT -will hold asa and a/c for now as pt with r/o GIB -neurochecks q2h -neuro on board: Dr. Villeda---> recommends keppra 1000 BID #Seizure - Meningioma appeciated on imaging. May be 2/2 this. Prolactin 39.6 -Will ppx with keppra 1000mg IVPB BID -eeg (non-urgent) - once extubated -sz prophylaxis #Acute hypoxic RF possible 2/2 aspiration -will cover for now with rocephin 1g IVPB qd -Blood cultures---. No growth -Extubated today successfully -elevate HOB #r/o UGIB -as with hx coffee-ground emesis. however w/o elevation in BUN. H/H currently stable -will repeat CBC to assess for change H/H -protonix 40 Daily per GI holding asa for now for stroke. -GI consult: Dr. Aquino on board #elevated ALP -Abd son--. diffuse fatty infiltration, cholelithiasis -nl LFTs #r/o possible SBO - NGT decompression -IVF, lyte supplementation -Spoke with Surgery Dr Wilde this evening. Clinical picture more consistent with ileus not SBO. Will continue to follow. #lactic acidosis likely 2/2 seizure -Trending down. 9---. 1.4 -has improved, will c/w IV NS 100 cc/hr #FEN IV NS 100 cc/hr continue to follow lytes NPO #Code status full code is HCP #PPX DVT: SCD's in light of possible bleed GI: protonix #Dispo ICU Visit type - Emergency Visit Emergency Visit: Yes ED Registration Date: 10/14/18 Care time: The patient presented to the Emergency Department on the above date and was hospitalized for further evaluation of their emergent condition. - New Patient This patient is new to me today: Yes Date on this admission: 10/15/18 - Critical Care Critical Care patient: Yes Total Critical Care Time (in minutes): 35 Critical Care Statement: The care of this patient involved high complexity decision making to prevent further life threatening deterioration of the patient 's condition and/or to evaluate & treat vital organ system(s) failure or risk of failure. - Discharge Referral Referred to [facility] Med [facility] No
--- NOTE | 2018-10-15 15:17 | ECHO ---
Name: VAL GANNON Exam:Adult Echocardiogram Study Date: 10/15/2018 12:05 PM Age: 88 yrs Reason For Study: Stroke Height: 70 in Weight: 220 lb BSA: 2.2 m2 MMode/2D Measurements & Calculations IVSd: 1.0 cm Ao root diam: 2.9 cm LVIDd: 4.6 cm LA dimension: 3.5 cm LVIDs: 3.5 cm LVPWd: 1.2 cm LVPWs: 2.3 cm EDV(Teich): 95.1 ml ESV(Teich): 52.1 ml LVOT diam: 2.1 cm RV S Jaison: 16.4 cm/sec Doppler Measurements & Calculations MV E max jaison: 81.5 cm/sec Ao V2 max: 149.2 cm/sec MV A max jaison: 102.3 cm/sec Ao max P.9 mmHg MV E/A: 0.80 Ao V2 mean: 96.1 cm/sec MV dec time: 0.29 sec Ao mean P.4 mmHg Ao V2 VTI: 32.2 cm VINICIO(I,D): 2.4 cm2 VINICIO(V,D): 2.4 cm2 LV V1 max P.2 mmHg SV(LVOT): 78.7 ml LV V1 mean P.4 mmHg LV V1 max: 101.9 cm/sec LV V1 mean: 71.8 cm/sec LV V1 VTI: 22.8 cm PA V2 max: 116.4 cm/sec Med Peak E' Jaison: 7.4 cm/sec PA max P.4 mmHg Med E/e': 11.0 Lat Peak E' Jaison: 6.1 cm/sec Lat E/e': 13.4 Procedure A complete two-dimensional transthoracic echocardiogram was performed (2D, M-mode, Doppler and color flow Doppler). The study was technically difficult with many images being suboptimal in quality. Left Ventricle The left ventricular size, thickness and function are normal. The left ventricular ejection fraction is normal. Ejection Fraction = 55-60%. No regional wall motion abnormalities noted. Right Ventricle The right ventricle is normal in size and function. Atria Normal left and right atrial size and function. Mitral Valve There is no mitral regurgitation noted. Tricuspid Valve There is trace tricuspid regurgitation. There was insufficient TR detected to calculate RV systolic p ressure. Aortic Valve No hemodynamically significant valvular aortic stenosis. No aortic regurgitation is present. Pulmonic Valve There is no pulmonic valvular regurgitation. Great Vessels The aortic root is normal size. Pericardium/Pleura There is no pericardial effusion. Interpretation Summary The study was technically difficult with many images being suboptimal in quality. The left ventricular size, thickness and function are normal The right ventricle is normal in size and function. There is trace tricuspid regurgitation. MD Tavo Huang 10/15/2018 03:17 PM
[2018-10-15] MEDS: PROPOFOL 1,000,000 MCG/100 ML VIAL IVPB SCH (17:15)
--- NOTE | 2018-10-15 17:27 | PN ---
Progress Note (short form) - Note Progress Note: HPI 88 year old male histoyr of HLD,BPH. He was found unresponsive, patient had tonic clonic seizure and enroute to hospital .He was intubated and thought to have right sided hemiparesis, on ct head no big stroke or cta of neck and brain was normal. Patient was transferred to icu and remain intubated, he is started on keppra 1 gm iv bid. His repeat ct had on cta showed there is possible left basal ganglia stroke Patient is extubated and he remains confused, and is repeating and not able to follow command. Patinet do have spontaneous speech present NEUROLOGICAL EXAMIANTION extubated and alert oriented x 0 patient is dysarthric, and able to repeat and not able to follow command eomi, pupils reactive, no face asymmetry Moving all ext ct head , cta of neck and brain unremarkable Assessment 88 year old male history of BPH, HLD. Patient presented to hospital for seizure and ? stroke. He has no extremity weakness. He remain confused and he is repeating himself and not able to follow command. It is possible he is delirious as he is extubated vs stroke. Plan: continue statin and hold apsirin - I would repeat ct head tomorrow am for rule out any large ischemic stroke, - eeg can also be obtained - continue supportive care and keppra for now Thanking you so much Fred Villeda MD
--- NOTE | 2018-10-15 20:20 | PN ---
GI Progress Note Subjective: No acute events CT scan revealed enlarged liver, gallstones, enlarged prostate, bilateral pleural effusions and was otherwise unremarkable No vomiting No overt bleeding Family at bedside. They describe N/V and diarrhea at home - Objective Vital Signs: Vital Signs Temperature 98.5 F 10/15/18 18:00 Pulse Rate 59 L 10/15/18 18:00 Respiratory Rate 23 H 10/15/18 18:00 Blood Pressure 117/61 10/15/18 18:00 O2 Sat by Pulse Oximetry (%) 96 10/15/18 17:41 Constitutional: Calm Eyes: No: Sclera Icterus Cardiovascular: Yes: Regular Rate and Rhythm Respiratory: Yes: Diminished (at bases bilaterally) ...Auscultate: Yes: Normoactive Bowel Sounds ...Palpate: Yes: Soft. No: Hepatomegaly, Splenomegaly, Tenderness ...Percussion: No: Tympanitic Edema: No (No LE edema) Neurological: Yes: Alert Labs: CBC, BMP 10/15/18 05:30 10/15/18 05:30 INR, PTT INR 1.08 (0.83-1.09) 10/14/18 08:43 Hepatic Panel Total Bilirubin 0.7 mg/dL (0.2-1) 10/14/18 08:45 AST 15 U/L (15-37) 10/14/18 08:45 ALT 17 U/L (13-61) 10/14/18 08:45 Alkaline Phosphatase 132 U/L (45-117) H 10/14/18 08:45 Albumin 3.1 g/dl (3.4-5.0) L 10/15/18 05:30 Problem List - Problems (1) GI bleed Assessment/Plan: No overt bleeding No focal findings on abdominal exam Changed to protonix 40mg daily Monitor for bleeding In setting of possible acute CVA, no plan for interventions at this time except for treatment of life threatening bleeding ALP was elevated. Repeat, check GGT. If it appears not to be liver related, in setting of enlarged prostate would need to be evaluated for bone pathology. W/U per Primary team Code(s): K92.2 - GASTROINTESTINAL HEMORRHAGE, UNSPECIFIED Qualifiers: GI bleed type/associated pathology: unspecified gastrointestinal hemorrhage type Qualified Code(s): K92.2 - Gastrointestinal hemorrhage, unspecified
--- NOTE | 2018-10-15 20:45 | CONSULT ---
Consult Consult Specialty:: General Surgery Referred by:: Dr. Andrea Valenzuela Reason for Consultation:: possible partial SBO? - History of Present Illness Chief Complaint: pt cannot offer; AXR with mildly dilated SB loops yesterday History of Present Illness: 88yo M with h/o BPH and high cholesterol, s/p knee surgery, admitted yesterday to ICU with acute change in LOC at home during the night with possible seizure activity, vomiting, antecedent foul-smelling diarrhea (per /family), and intubated in field by EMS. He had reportedly had dinner earlier, walking ok, got up twice during night to use bathroom, so may not have been feeling completely well, but did not complain of pain that knows of; in bed , he swung his arm and hit her in the head, so she asked him to move, but he did not respond, so she checked him and found eyes rolled back in head showing white and evidence of emesis, so called 911 and her daughter. He was thought to have had a seizure, and CTA in hospital suggested possibility of basal ganglia stroke, though neuro is awaiting further studies to confirm. He had initially elevated lactate which normalized, and AXR done yesterday showed some mildly dilated SB loops with reading of "cannot exclude partial SBO." Surgery was asked to evaluate. Since then, he was extubated this morning, and CT abdomen pelvis has been done via NGT with IV/PO contrast showing no evidence of obstruction. He is able to speak, though not always clearly to family (dentures are not in place), and follow some commands but not all/consistently. NGT is in place but clamped. He is seen and examined in ICU bed with and daughter present. He moves all extremities spontaneously, and appears comfortable and not in pain. He laughs periodically, speaks/vocalizes frequently but does not answer questions clearly or consistently. - History Source History Provided By: Family Member, Medical Record, Caregiver Limitations to Obtaining History: Clinical Condition - Past Medical History Cardio/Vascular: Yes: Hyperlipdemia Renal/: Yes: BPH - Past Surgical History Additional Surgical History: knee surgery - Alcohol/Substance Use Hx Alcohol Use: Yes (socially) History of Substance Use: reports: None - Smoking History Smoking history: Former smoker Have you smoked in the past 12 months: No If you are a former smoker, when did you quit?: many years ago, social use - Social History Usual Living Arrangement: With Spouse ADL: Independent Home Medications - Allergies Allergies/Adverse Reactions: Allergies Allergy/AdvReac Type Severity Reaction Status Date / Time No Allergy Information Allergy Verified 10/14/18 08:52 Available - Home Medications Home Medications: Ambulatory Orders Atorvastatin Calcium 10 mg PO DAILY 10/14/18 Tamsulosin HCl 0.4 mg DAILY 10/14/18 Home Medications (free text): family denies pt having any allergies Family Disease History - Family Disease History Family History: Unable to Obtain (noncontributory) Review of Systems Unable to obtain ROS, reason: pt cannot offer Findings/Remarks: from family members only - Review of Systems Constitutional: denies: Chills, Fever, Loss of Appetite Gastrointestinal: reports: Diarrhea (with hpi), Vomiting (with hpi). denies: Abdominal Pain Genitourinary: reports: Other (nocturia) Neurological: reports: Change in LOC (with hpi), Change in Speech (pt currently difficult to understand at times since extubated, unclear if receptive or expressive aphasia present?), Confusion (? - currently, difficult to tell), Seizure (possible, with hpi). denies: Unsteady Gait (prior to hpi per family) Physical Exam Vital Signs: Vital Signs Temperature 98.5 F 10/15/18 18:00 Pulse Rate 59 L 10/15/18 18:00 Respiratory Rate 23 H 10/15/18 18:00 Blood Pressure 117/61 10/15/18 18:00 O2 Sat by Pulse Oximetry (%) 96 10/15/18 17:41 Constitutional: Yes: Well Nourished, No Distress, Calm Eyes: Yes: Conjunctiva Clear, EOM Intact (seems to be able to follow finger laterally, medially, upward and partially downward). No: Sclera Icterus HENT: Yes: Atraumatic, Normocephalic, Other (NGT in place, clamped) Neck: Yes: Supple, Trachea Midline Cardiovascular: Yes: Regular Rate and Rhythm Respiratory: Yes: Regular, CTA Bilaterally (difficult to tell - pt does not cooperate with breathing on command without vocalizing), On Nasal O2 Gastrointestinal: Yes: Normal Bowel Sounds, Soft, Other (no scars). No: Distention, Tenderness ...Rectal Exam: Yes: Deferred Renal/: Yes: Solis Present, Hematuria (fresh - appears to have just recently pulled against Solis while moving leg/knee where it is secured - light yellow urine in bag, now pink/reddish in tubing and blood at meatus) Musculoskeletal: No: Joint Stiffness, Joint Swelling Extremities: Yes: Other (moving all 4 limbs spontaneously; wrist restraints in place). No: Cool, Cyanosis Edema: No Peripheral Pulses WNL: Yes Integumentary: No: Jaundice, Rash Neurological: Yes: Alert, Aphasia (??? unclear if he fully understands what is being asked in Romanian or [place], and unclear if his responses are confused, aphasic, or just nonresponsive - sometimes "singing" per family, sometimes just chattering with unclear words or meaning to family), Confusion (?? - see above) , Other (can stick tongue out on command - appears midline). No: Oriented (??? - cannot fully tell, as pt does not answer questions clearly or consistently, though can say his name, and eventually daughter's), Facial Droop ...Motor Strength: LUE (title insurance sales representative ok), RUE (title insurance sales representative ok) Psychiatric: Yes: Alert. No: Oriented (not clearly) Labs: CBC, BMP 10/15/18 05:30 10/15/18 05:30 CMP Sodium 138 mmol/L (136-145) 10/15/18 05:30 Potassium 3.3 mmol/L (3.5-5.1) L 10/15/18 05:30 Chloride 107 mmol/L (98-107) 10/15/18 05:30 Carbon Dioxide 25 mmol/L (21-32) 10/15/18 05:30 Anion Gap 6 MMOL/L (8-16) L 10/15/18 05:30 BUN 13 mg/dL (7-18) 10/15/18 05:30 Creatinine 0.9 mg/dL (0.55-1.3) 10/15/18 05:30 Creat Clearance w eGFR > 60 (>60) 10/15/18 05:30 POC Glucometer 195 UNITS (80-120) 10/14/18 08:46 Random Glucose 115 mg/dL (74-106) H 10/15/18 05:30 Lactic Acid 1.4 mmol/L (0.4-2.0) 10/14/18 20:45 Calcium 7.7 mg/dL (8.5-10.1) L 10/15/18 05:30 Phosphorus 3.1 mg/dL (2.5-4.9) 10/15/18 05:30 Magnesium 2.1 mg/dL (1.8-2.4) 10/15/18 05:30 Total Bilirubin 0.7 mg/dL (0.2-1) 10/14/18 08:45 AST 15 U/L (15-37) 10/14/18 08:45 ALT 17 U/L (13-61) 10/14/18 08:45 Alkaline Phosphatase 132 U/L (45-117) H 10/14/18 08:45 Creatine Kinase 65 U/L (26-308) 10/14/18 08:45 Troponin I < 0.02 ng/ml (0.00-0.05) 10/14/18 08:45 Total Protein 7.5 g/dl (6.4-8.2) 10/14/18 08:45 Albumin 3.1 g/dl (3.4-5.0) L 10/15/18 05:30 Triglycerides 147 mg/dL (0-150) 10/14/18 08:45 Cholesterol 189 mg/dL (50-200) 10/14/18 08:45 Total LDL Cholesterol 109 mg/dL (5-100) H 10/14/18 08:45 HDL Cholesterol 54 mg/dL (40-60) 10/14/18 08:45 Prolactin 39.6 ng/ml (4.0-15.2) H 10/14/18 12:00 INR, PTT INR 1.08 (0.83-1.09) 10/14/18 08:43 Urine Test Results Urine Color Ltyellow 10/14/18 09:17 Urine Appearance Slcloudy 10/14/18 09:17 Urine pH 6.0 (5.0-8.0) 10/14/18 09:17 Ur Specific [place] 1.011 (1.010-1.035) 10/14/18 09:17 Urine Protein 1+ (NEGATIVE) H 10/14/18 09:17 Urine Glucose (UA) 2+ (NEGATIVE) H 10/14/18 09:17 Urine Ketones Trace (NEGATIVE) H 10/14/18 09:17 Urine Blood 1+ (NEGATIVE) H 10/14/18 09:17 Urine Nitrite Negative (NEGATIVE) 10/14/18 09:17 Urine Bilirubin Negative (<2.0 mg/dL) 10/14/18 09:17 Ur Leukocyte Esterase Negative (NEGATIVE) 10/14/18 09:17 Ur Epithelial Cells Rare /HPF (FEW) 10/14/18 09:17 Urine Bacteria Rare /hpf (NONE SEEN) 10/14/18 09:17 Urine Mucus Rare 10/14/18 09:17 Microbiology 10/14/18 08:30 Blood Culture - Preliminary Blood - Peripheral Venous NO GROWTH OBTAINED AFTER 24 HOURS, INCUBATION TO CONTINUE FOR 4 DAYS. 10/14/18 09:17 Blood Culture - Preliminary Blood - Peripheral Venous NO GROWTH OBTAINED AFTER 24 HOURS, INCUBATION TO CONTINUE FOR 4 DAYS. Imaging - Results X-ray: Report Reviewed, Image Reviewed (image reviewed from yesterday - mildly dilated SB loops with gas, ileus vs possible partial SBO??) Cat Scan: Report Reviewed, Image Reviewed (images personally reviewed - enteral contrast in distal small bowel and colon to descending; no obstruction, no dilation, no free air or fluid; + cholelithiasis, NG in stomach) Problem List - Problems (1) Abnormal abdominal x-ray Assessment/Plan: AXR showing mildly dilated SB loops yesterday while patient was acutely ill, intubated and s/p episode of diarrhea and possible seizure with vomiting pre- hospital -- most likely insurance follow up representative of ileus pt extubated today and still not clearly fully oriented or consistently able to follow commands or answer questions, though able to speak, say name, and follow some commands moving all extremities spontaneously with no clear focal motor deficits possible basal ganglia stroke on CTA of head (neuro following) CT abd/pelvis done today with IV/PO contrast shows no evidence of bowel obstruction contrast through to distal colon - anticipate 48 hrs +/- of diarrhea as contrast evacuates NGT in place - may be useful if unable to confirm safe swallowing function or evaluate for aspiration risk prior to allowing po intake gallstones but no cholecystitis suspected no acute surgical issues identified discussed with ICU team members, Drs. Mcdermott and Debbie also discussed with GI, Dr. Aquino will sign off - please recall with any general surgical questions Thank you for the opportunity to participate in the care of this patient. This patient is critically ill. Time spent reviewing chart, examining patient, talking with providers and/or family and documentation is 50 minutes. Code(s): R93.5 - ABN FINDINGS ON DX IMAGING OF ABD REGIONS, INC RETROPERITON (2) Altered mental status Code(s): R41.82 - ALTERED MENTAL STATUS, UNSPECIFIED Qualifiers: Altered mental status type: unspecified Qualified Code(s): R41.82 - Altered mental status, unspecified (3) Basal ganglia stroke Code(s): I63.9 - CEREBRAL INFARCTION, UNSPECIFIED (4) Seizure Code(s): R56.9 - UNSPECIFIED CONVULSIONS (5) Diarrhea Code(s): R19.7 - DIARRHEA, UNSPECIFIED Qualifiers: Diarrhea type: unspecified type Qualified Code(s): R19.7 - Diarrhea, unspecified (6) Vomiting alone Code(s): R11.11 - VOMITING WITHOUT NAUSEA Qualifiers: Vomiting type: unspecified Vomiting Intractability: unspecified Qualified Code(s): R11.11 - Vomiting without nausea
[2018-10-15] MEDS: CHLORHEXIDINE GLUCONATE 4% CLEANSER FOR DECOLONIZATION TP SCH (21:44)
[2018-10-15] MEDS: ATORVASTATIN CA 40 MG TABLET (FP) PO SCH (21:44)
[2018-10-15] MEDS ORDERED: ACETAMINOPHEN 1000 MG/100 ML VIAL (NON FORMULARY) IVPB PRN (22:01)
--- NOTE | 2018-10-16 01:19 | PN ---
Progress Note (short form) - Note Progress Note: Patient tried to pull out his ahn. Slight bleeding from the tip of the penis. Red colored urine collected. Will monitor closely. If needed will do a stat CBC. Vitals stable.
[2018-10-16 06:22] LABS: BASO % 0.3 % (0-2.0); EOS % 0.1 % (0-4.5); HEMATOCRIT 34.6 % (35.4-49); HEMOGLOBIN 11.9 GM/dL (11.7-16.9); LYMPH % 16.9 % (8-40); MCH 28.6 pg (25.7-33.7); MCHC 34.5 g/dl (32.0-35.9); MEAN CELL VOLUME 82.9 fl (80-96); MEAN PLT VOLUME 8.2 fl (7.5-11.1); MONO % 7.1 % (3.8-10.2); NEUT % 75.6 % (42.8-82.8); PLATELET COUNT 260 K/MM3 (134-434); RBC 4.17 M/mm3 (4.00-5.60); RDW 14.3 % (11.9-15.9); WHITE BLOOD COUNT 8.2 K/mm3 (4.0-10.0)
[2018-10-16 06:48] LABS: ALK PHOS 88 U/L (45-117); ANION GAP 6 MMOL/L (8-16); BILIRUBIN,TOTAL 1.8 mg/dL (0.2-1); BLOOD UREA NITROGEN 9 mg/dL (7-18); CALCIUM 7.9 mg/dL (8.5-10.1); CHLORIDE 107 mmol/L (98-107); CO2 27 mmol/L (21-32); CREATININE 0.9 mg/dL (0.55-1.3); GLUCOSE,RANDOM 88 mg/dL (74-106); PHOSPHOROUS 2.6 mg/dL (2.5-4.9); POTASSIUM 3.7 mmol/L (3.5-5.1); SGOT/AST 17 U/L (15-37); SGPT/ALT 12 U/L (13-61); SODIUM 140 mmol/L (136-145); TOT PROT 5.7 g/dl (6.4-8.2)
--- NOTE | 2018-10-16 07:57 | PN ---
Physical Exam: SUBJECTIVE: Patient is an 88 year old male who was BIBEMS for altered mental status, coffee ground emesis and witnessed seizure tonic/clonic seizure by . Patient was intubated on the field and admitted to ICU for further monitoring and management. Last EGD/Colonoscopy x15+ years ago. I saw and examined the patient this morning, he reported no pain. He was mildly confused but attempted to follow commands. Family at bedside reported pt developed cough. OBJECTIVE: Vital Signs Period Temp Pulse Resp BP Sys/Ludwig Pulse Ox Last 24 Hr 98.5 F-99.1 F 21-83 14-23 90-139/54-78 96-100 GENERAL: The patient is awake, alert, not oriented. in no acute distress. HEAD: Normal with no signs of trauma. EYES: PERRL, extraocular movements intact, sclera anicteric, conjunctiva clear. No ptosis. ENT: Ears normal, nares patent, oropharynx clear without exudates, moist mucous membranes. NECK: Trachea midline, full range of motion, supple. LUNGS: Rhonchorous breath sounds bilaterally. no stridor. HEART: Regular rate and rhythm, S1, S2 without murmur, rub or gallop. ABDOMEN: Soft, nontender, nondistended, normoactive bowel sounds, no guarding, no rebound, no hepatosplenomegaly, no masses. EXTREMITIES: 2+ pulses, warm, well-perfused, no edema. NEUROLOGICAL: Cranial nerves II through XII grossly intact. Moves all fours. Normal speech articulation, intermittent confusion. PSYCH: Normal mood, normal affect. Folllows commands intermittently. SKIN: Warm, dry, normal turgor, no rashes or lesions noted Laboratory Results - last 24 hr 10/15/18 10/16/18 10/16/18 05:30 05:30 05:30 WBC 8.2 RBC 4.17 Hgb 11.9 Hct 34.6 L MCV 82.9 MCH 28.6 MCHC 34.5 RDW 14.3 Plt Count 260 MPV 8.2 Absolute Neuts (auto) 6.2 Neutrophils % 75.6 Lymphocytes % 16.9 Monocytes % 7.1 Eosinophils % 0.1 Basophils % 0.3 Nucleated RBC % 0 Sodium 138 140 Potassium 3.3 L 3.7 Chloride 107 107 Carbon Dioxide 25 27 Anion Gap 6 L 6 L BUN 13 9 Creatinine 0.9 0.9 Creat Clearance w eGFR > 60 80.01 Random Glucose 115 H 88 Calcium 7.7 L 7.9 L Phosphorus 3.1 2.6 Magnesium 2.1 2.0 Total Bilirubin 1.8 H AST 17 ALT 12 L Alkaline Phosphatase 88 Total Protein 5.7 L Albumin 3.1 L 3.0 L Active Medications Generic Name Dose Route Start Last Admin Trade Name Freq PRN Reason Stop Dose Admin Acetaminophen 1,000 mg 10/15/18 22:01 Ofirmev Injection - IVPB Q6H PRN PAIN LEVEL 7 - 10 Atorvastatin Calcium 80 mg 10/15/18 22:00 10/15/18 21:44 Lipitor - PO 80 mg HS BARRETT Administration Chlorhexidine Gluconate 1 applic 10/14/18 22:00 10/15/18 21:44 Hibiclens For Decolonization - TP 1 applic HS BARRETT Administration Ceftriaxone Sodium 1 gm/ 50 mls @ 100 mls/hr 10/14/18 16:15 10/15/18 09:47 Dextrose IVPB 100 mls/hr DAILY BARRETT Administration Sodium Chloride 1,000 mls @ 100 mls/hr 10/14/18 16:12 10/15/18 17:14 Normal Saline - IV 100 mls/hr ASDIR BARRETT Administration Levetiracetam 1,000 mg 10/14/18 14:45 10/15/18 21:44 Keppra Injection - IVPB 1,000 mg BID BARRETT Administration Mupirocin 1 applic 10/14/18 22:00 10/15/18 21:43 Bactroban Ointment (For Decolonization) - NS 10/19/18 21:59 1 applic BID BARRETT Administration Pantoprazole Sodium 40 mg 10/16/18 10:00 Protonix - PO DAILY BARRETT ASSESSMENT/PLAN: Patient is an 88 year old male who was BIBEMS for altered mental status, coffee ground emesis and witnessed seizure tonic/clonic seizure by . Patient was intubated on the field and admitted to ICU for further monitoring and management. CTA head and neck positive for acute left basal ganglia infarct. 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 a possible small subtle infarct is noted within the left frontal luna radiata. mild chronich micorvasulcar changes seen in the subinsular regions bilaterally. 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 no perilesional edema. -HOB #Tonic Clonic Seizure -Witnessed by with only one episode -Lactic Acid 9.0>>2.3>>1.4, likely secondary to seizure. -Prolactin positive -Levetiracetam 1000mg BID IVPB ordered, as per Neuro -No indication for emergent EEG, as per Neuro -No seizure activity in ICU -Continue to monitor for further seizure activity. PULMONARY #Acute Hypoxic Respiratory Failure -Possibly secondary to Aspiration Pneumonia -Extubated 10/15/18 -Chest X-Ray revealed Left costophrenic blunting but may be due to atelectasis vs aspiration. -Ceftriaxone 1000mg IVPB daily ordered, as per primary team -CXR 10/16/18: shallow inspiration. cardiomegaly. right diaphragm elevated. no evidence of pneumonia, atelectasis, congestive changes. degenerative changes to thoracic spine. NG tube seen transversing through the esophagus in the region of the EG junciton. GASTROENTEROLOGY #Hematemesis -Possible UGI bleed. OG tube placed in ED and 300 mL of coffee-ground like material was aspirated -NG tube in for possible feedings, pending swallow eval -DC protonix drip -Protonix 40 mg daily per GI -Daily CBC -GGT added on per GI -GI consulted -NPO for now -Hold AC and Aspirin -Monitor for overt bleeding. Will likely require EGD once patient stable. #Possible Partial Bowel Obstruction -Abdominal X-Ray revealed possible partial bowel obstruction -CT A/P 10/15/18: no obstruction. cholelithiasis. hepatic enlargement. enlarged prostate. -Surgery recs no surgical intervention -Surgery consulted #Diarrhea -Patients family report one day history of nonbloody diarrhea -C.Diff ordered -Continue to monitor electrolytes #Elevated Alkaline Phosphatase -LFT's and Bili wnl -Abdominal US report: diffuse fatty infiltration of liver. cholelithiasis without cholecystitis. -Continue to monitor CARDIOLOGY #HLD -Lipitor 80mg daily INFECTIOUS DISEASE #Lactic Acidosis -9>>2.3>>1.4 -Likely secondary to seizure activity #Possible Aspiration Pneumonia -Afebrile with no leukocytosis -Ceftriaxone 1gm IVPB daily, as per primary team -Blood cultures negative at 24 hours -Continue to monitor F/E/N -No IVF -Electrolytes wnl -NPO Prophylaxis -No AC due to possible GI bleed -Protonix 40 mg daily Disposition -Full code. is HCP -Tele Visit type - Emergency Visit Emergency Visit: Yes ED Registration Date: 10/14/18 Care time: The patient presented to the Emergency Department on the above date and was hospitalized for further evaluation of their emergent condition. - New Patient This patient is new to me today: No - Critical Care Critical Care patient: Yes Total Critical Care Time (in minutes): 35 Critical Care Statement: The care of this patient involved high complexity decision making to prevent further life threatening deterioration of the patient 's condition and/or to evaluate & treat vital organ system(s) failure or risk of failure. - Discharge Referral Referred to [facility] Med [facility] No
[2018-10-16 09:30] LABS: GAMMA GLUTAMYL TRANSPEPTIDASE 18 U/L (5-85)
[2018-10-16] MEDS ORDERED: PANTOPRAZOLE 40 MG TABLET (FP) PO SCH (10:00)
--- NOTE | 2018-10-16 10:03 | PN ---
Progress Note (short form) - Note Progress Note: 88 year old male histoyr of HLD,BPH. He was found unresponsive, patient had tonic clonic seizure and enroute to hospital .He was intubated and thought to have right sided hemiparesis, on ct head no big stroke or cta of neck and brain was normal. Patient was transferred to icu and remain intubated, he is started on keppra 1 gm iv bid. His repeat ct had on cta showed there is possible left basal ganglia stroke Patient is extubated and he remains confused, and is repeating and not able to follow command. there has not been any change since he is extubated. speech pathology consult pending NEUROLOGICAL EXAMIANTION extubated and alert oriented x 0, repeating same sentence asking to do something eomi, pupils reactive, no face asymmetry Moving all ext ct head , cta of neck and brain unremarkable repeat ct head and mri of brain is pending Assessment 88 year old male history of BPH, HLD. Patient presented to hospital for seizure and ? stroke. He has no extremity weakness. He is repeating himself and not able follow command . Plan: continue statin and hold apsirin due to gi bleed -waiting for repeat ct head - continue supportive care and keppra for now - eeg is pending - I spent 35 minute dong critical care Thanking you so much Fred Villeda MD
[2018-10-16] MEDS ORDERED: PT OWN MED DRAWER 7, Y5N ONE ×2 (10:49→20:38)
[2018-10-16] MEDS ORDERED: levETIRAcetam 500 MG/5 ML INJECTION VIAL IVPB ONE (10:50)
[2018-10-16] MEDS ORDERED: DEXTROSE 5%-WATER - 50 ML IVPB ONE (10:50)
[2018-10-16] MEDS ORDERED: cefTRIAXone SODIUM 1 GM VIAL ONE (10:50)
[2018-10-16] MEDS: levETIRAcetam 500 MG/5 ML INJECTION VIAL IVPB SCH ×2 (11:04→21:35)
[2018-10-16] MEDS: CEFTRIAXONE 1 GM in DEXTROSE 5%-WATER - 50 ML IVPB SCH (11:05)
[2018-10-16] MEDS: MUPIROCIN 2% TOPICAL OINTMENT FOR DECOLONIZATION NS SCH ×2 (11:08→21:34)
--- NOTE | 2018-10-16 12:04 | PN ---
Teaching Attending Note Name of Resident: Rosio Martinez ATTENDING PHYSICIAN STATEMENT I saw and evaluated the patient. I reviewed the resident's note and discussed the case with the resident. I agree with the resident's findings and plan as documented. SUBJECTIVE: Patient seen and examined in the ICU. Remains extubated. Awake and responsive. Confused. Able to follow some simple commands. No pressors. Having EEG performed at bedside. Intake & Output 10/13/18 10/14/18 10/15/18 10/16/18 23:59 23:59 23:59 23:59 Intake Total 750 4213 1351 Output Total 5272 246 2785 Balance -550 3413 -249 Weight 188 lb 1 oz 184 lb 6 oz 182 lb 1.6 oz Last Vital Signs Temp Pulse Resp BP Pulse Ox 98.9 F 57 L 22 H 110/57 L 96 10/16/18 10:00 10/16/18 10:00 10/16/18 10:00 10/16/18 10:00 10/16/18 00:38 Active Medications Acetaminophen (Ofirmev Injection -) 1,000 mg IVPB Q6H PRN PRN Reason: PAIN LEVEL 7 - 10 Atorvastatin Calcium (Lipitor -) 80 mg PO HS [facility] Last Admin: 10/15/18 21:44 Dose: 80 mg Chlorhexidine Gluconate (Hibiclens For Decolonization -) 1 applic TP HS [facility] Last Admin: 10/15/18 21:44 Dose: 1 applic Ceftriaxone Sodium 1 gm/ (Dextrose) 50 mls @ 100 mls/hr IVPB DAILY [facility] Last Admin: 10/16/18 11:05 Dose: 100 mls/hr Levetiracetam (Keppra Injection -) 1,000 mg IVPB BID [facility] Last Admin: 10/16/18 11:04 Dose: 1,000 mg Mupirocin (Bactroban Ointment (For Decolonization) -) 1 applic NS BID [facility] Stop: 10/19/18 21:59 Last Admin: 10/16/18 11:08 Dose: 1 applic Pantoprazole Sodium (Protonix Iv) 40 mg IVPUSH DAILY [facility] OBJECTIVE: Gen: Extubated, awake and responsive, confused Heart: RRR Lung: few scattered rhonchi Abd: soft, nontender Ext: no edema Laboratory Results - last 24 hr 10/16/18 10/16/18 05:30 05:30 WBC 8.2 RBC 4.17 Hgb 11.9 Hct 34.6 L MCV 82.9 MCH 28.6 MCHC 34.5 RDW 14.3 Plt Count 260 MPV 8.2 Absolute Neuts (auto) 6.2 Neutrophils % 75.6 Lymphocytes % 16.9 Monocytes % 7.1 Eosinophils % 0.1 Basophils % 0.3 Nucleated RBC % 0 Sodium 140 Potassium 3.7 Chloride 107 Carbon Dioxide 27 Anion Gap 6 L BUN 9 Creatinine 0.9 Creat Clearance w eGFR 80.01 Random Glucose 88 Calcium 7.9 L Phosphorus 2.6 Magnesium 2.0 Total Bilirubin 1.8 H GGT 18 AST 17 ALT 12 L Alkaline Phosphatase 88 Total Protein 5.7 L Albumin 3.0 L ASSESSMENT AND PLAN: Acute CVA Seizure Acute Respiratory Failure Lactic Acidosis Atelectasis Hyperlipidemia BPH No evidence of SBO on imaging - Follow EEG report - O2 as needed to maintain saturation - antiepileptics per Neuro - IVF - Further workup per Neuro - DVT/GI prophylaxis - Swallow evaluation. If not able to take PO intake, use NGT for eneteral feeds - 4W / 4S monitoring Dr Dyson
--- NOTE | 2018-10-16 13:27 | CONSULT ---
Admitting History and Physical - Primary Care Physician PCP: Chloe Goode - Admission History of Present Illness: Per EMR-88 year old male histoyr of HLD,BPH, found unresponsive,tonic clonic seizure. Intubated and thought to have right sided hemiparesis, Repeat ct - left basal ganglia stroke suspected. Patient extubated yesterday.. NGT in place Pt was functional before admission, verbal, not confused per his daughter. History Source: Family Member, Medical Record Limitations to Obtaining History: Clinical Condition (Aphasia) - Past Medical History Cardiovascular: Yes: Hyperlipdemia Renal/: Yes: BPH - Smoking History Smoking history: Former smoker Have you smoked in the past 12 months: No If you are a former smoker, when did you quit?: many years ago, social use - Alcohol/Substance Use Hx Alcohol Use: Yes (socially) History of Substance Use: reports: None - Social History ADL: Independent History - Admission Reason For Visit: CVA - Diagnostics X-ray: Report Reviewed CT Scan: Report Reviewed - General Mental Status: Awake and Alert Attention: Intact Ability to Follow Directions: Poor Head/Neck Control: Fair - Hearing Hearing: Normal Hearing Aide: No With Patient: No Speech Evaluation - Communication Primary Language: [place] Communication: Yes: Dysarthria, Aphasia Oral Expression Ability: Yes: Moderate Impairment, Severe Impairment - Speech Production Able to Make Needs Known: Yes: Severely Impaired Intelligibility: Yes: Moderately Impaired, Severely Impaired - Speech Characteristics Voice Loudness: Normal Voice Pitch: Yes: Normal Voice Phonatory-based Quality: Yes: Vocal Wetness (audible upper airway congestion) Speech Pattern: Impaired Speech Clarity: < 25% Nasal Resonance: Hypernasal Articulation: Yes: Imprecise - Language/Auditory Comprehension Observation: Able to respond to yes/no queries: No, Comprehends Conversational Speech: No (Occasionally responds to 1 stage commands with gesture), Benefits from Slow Speech: Yes, Benefits from Repetiton: Yes, Benefits from Increased Volume of Speech: Yes (maybe although no known hearing loss) - Language/Verbal Expression Aphasia: Yes: Impaired Repetition Able to Respond to Simple Queries: Yes: Severely Impaired Able to Communicate Wants and Needs: Yes: Severely Impaired Functional Communication Status: Yes: Severely Impaired Aware of Errors: No Attempts to Correct Errors: No - Swallow Evaluation/Bedside Assessment Current Nutritional Intake: NPO Facial Symmetry at Rest: Symmetrical Facial Symmetry on Retraction: Symmetrical Pucker Lips: Weak Smile: Weak Lingual Movement: Symmetric Lingual Speed of Movement: Reduced Lingual Movement Strgth Against Opposition: Reduced Velopharyngeal Movement: Hypernasality Laryngeal Elevation: Impaired Laryngeal Movement: Reduced Excursion, Labored,delay initiation, Reduced Velocity, Other (upper airway congestion) Labial Seal: WFL Oral Prep Time: WFL A-P Transit: WFL Pocketing: None Timing of Swallow: Delayed Coughing/Throat Clear: No Change in Voice: Yes (baseline vocal wetness) Recommendations - Speech Evaluation, Impression/Plan Impression: [place] 88 yo man, presents with auditory comprehension and expression deficits. Pt occasionally understands a question and then perseverates on the response for future communication eg "[employer], It closed down" "Carina" Able to retrieve his last name independently. Unable to count in unison or upon repetition. Poor error awareness. Good eye contact, smile, throws kisses, by end of therapy session, pt was singing "Happy birthday " and producing social speech eg "Bye" - Disposition [facility] to[facility] - Dysphagia Impressions/Plan Swallowing Skills: Impaired Dysphagia Impressions: Ongoing Evaluation *Silent aspiration: cannot be R/O at bedside Recommendations: Modified Barium Swallow (when stronger) - Recommendations Diet Consistency: NPO, Other (Consider NGT for meds/nutrition if not medically contrindicated. CXR ok but upper airway secretions.) Liquids: NPO
[2018-10-16] MEDS: PANTOPRAZOLE SODIUM 40 MG VIAL IVPUSH SCH (13:43)
--- NOTE | 2018-10-16 14:33 | PN ---
Physical Exam: SUBJECTIVE: Patient seen and examined at bedside. OBJECTIVE: Vital Signs Period Temp Pulse Resp BP Sys/Ludwig Pulse Ox Last 24 Hr 98.5 F-99.1 F 21-66 17-23 104-126/53-69 96-96 GENERAL: NAD. Awake, responsive. Not oriented HEENT: Atraumatic/Normocephalic, OG tube in place. EYES: EOMi slcera clear LUNGS: expiratory rhonchi anteriorly. HEART: RRR nl s1s2 ABDOMEN: Nondistended nonender EXTREMITIES: No CCE. SCD's. B/L hand mittens in place PSYCH: Normal mood, normal affect. SKIN: Warm, dry, normal turgor, no rashes or lesions noted Laboratory Results - last 24 hr 10/16/18 10/16/18 05:30 05:30 WBC 8.2 RBC 4.17 Hgb 11.9 Hct 34.6 L MCV 82.9 MCH 28.6 MCHC 34.5 RDW 14.3 Plt Count 260 MPV 8.2 Absolute Neuts (auto) 6.2 Neutrophils % 75.6 Lymphocytes % 16.9 Monocytes % 7.1 Eosinophils % 0.1 Basophils % 0.3 Nucleated RBC % 0 Sodium 140 Potassium 3.7 Chloride 107 Carbon Dioxide 27 Anion Gap 6 L BUN 9 Creatinine 0.9 Creat Clearance w eGFR 80.01 Random Glucose 88 Calcium 7.9 L Phosphorus 2.6 Magnesium 2.0 Total Bilirubin 1.8 H GGT 18 AST 17 ALT 12 L Alkaline Phosphatase 88 Total Protein 5.7 L Albumin 3.0 L Active Medications Generic Name Dose Route Start Last Admin Trade Name Freq PRN Reason Stop Dose Admin Acetaminophen 1,000 mg 10/15/18 22:01 Ofirmev Injection - IVPB Q6H PRN PAIN LEVEL 7 - 10 Atorvastatin Calcium 80 mg 10/15/18 22:00 10/15/18 21:44 Lipitor - PO 80 mg HS [facility] Administration Chlorhexidine Gluconate 1 applic 10/14/18 22:00 10/15/18 21:44 Hibiclens For Decolonization - TP 1 applic HS [facility] Administration Ceftriaxone Sodium 1 gm/ 50 mls @ 100 mls/hr 10/14/18 16:15 10/16/18 11:05 Dextrose IVPB 100 mls/hr DAILY [facility] Administration Levetiracetam 1,000 mg 10/14/18 14:45 03/15/19 11:04 Keppra Injection - IVPB 1,000 mg BID [facility] Administration Mupirocin 1 applic 10/14/18 22:00 10/16/18 11:08 Bactroban Ointment (For Decolonization) - NS 10/19/18 21:59 1 applic BID [facility] Administration Pantoprazole Sodium 40 mg 10/16/18 11:30 10/16/18 13:43 Protonix Iv IVPUSH 40 mg DAILY [facility] Administration ASSESSMENT/PLAN: 88 y/o M with PMH BPH, HLD, who presents to the ED after he was found unresponsive at home by his this AM. #L Basal Ganglia Ischemic Stroke -ECHO---> L Ventricular size, function, thickness WNL -carotids already done via head CTA- moderate calc plaque prox L ICA -lipitor increaed to 80 mg through NGT -neuro on board: Dr. Villeda---> recommends keppra [address] head 10/16/18 report: no definite interval change in comparison to a prior CT study of 10/14/18. a possible small subtle infarct is noted within the left frontal luna radiata. mild chronich micorvasulcar changes seen in the subinsular regions bilaterally. 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 no perilesional edema agnes meron evaluated pt today. Recommends Modified Barium Swallow (when stronger) #Seizure - Meningioma appeciated on imaging. May be 2/2 this. Prolactin 39.6 -Will ppx with keppra 1000mg IVPB BID -eeg performed at bedside. Waiting for official read. -sz prophylaxis #Acute hypoxic RF possible 2/2 aspiration -will cover for now with rocephin 1g IVPB qd -Blood cultures---. No growth -Extubated -elevate HOB #r/o UGIB -as with hx coffee-ground emesis. however w/o elevation in BUN. H/H currently stable -will repeat CBC to assess for change H/H -protonix 40 Daily per GI holding asa for now for stroke. -GI consult: Dr. Aquino on board #elevated ALP -Abd son--. diffuse fatty infiltration, cholelithiasis -nl LFTs #r/o possible SBO. Evaluated by Surgery Dr Wilde. Does not believe tis to be an SBO .Most likely ileus 2/2 state of health. - NGT decompression -IVF, lyte supplementation #FEN No fluids continue to follow lytes NPO #Code status full code is HCP #PPX DVT: SCD's in light of possible bleed GI: protonix 40 mg Daily #Dispo tele tomorrow . Visit type - Emergency Visit Emergency Visit: Yes ED Registration Date: 10/14/18 Care time: The patient presented to the Emergency Department on the above date and was hospitalized for further evaluation of their emergent condition. - New Patient This patient is new to me today: No - Critical Care Critical Care patient: Yes Total Critical Care Time (in minutes): 35 Critical Care Statement: The care of this patient involved high complexity decision making to prevent further life threatening deterioration of the patient 's condition and/or to evaluate & treat vital organ system(s) failure or risk of failure. - Discharge Referral Referred to [facility] Med P.C.: No
--- NOTE | 2018-10-16 19:29 | PN ---
Teaching Attending Note Name of Resident: Ravindra Desai ATTENDING PHYSICIAN STATEMENT I saw and evaluated the patient. I reviewed the resident's note and discussed the case with the resident. I agree with the resident's findings and plan as documented. SUBJECTIVE: extubated. Awake and responsive, but Confused. follows simple commands. OBJECTIVE: Vital Signs Temperature 97.8 F 10/16/18 14:00 Pulse Rate 52 L 10/16/18 18:00 Respiratory Rate 15 10/16/18 18:00 Blood Pressure 126/52 L 10/16/18 18:00 O2 Sat by Pulse Oximetry (%) 96 10/16/18 09:00 GE: comfortable with no acute distress. HEAD: Normocephalic; atraumatic EYES: Pupils are reactive , ENMT: on NC , EOMI , BECK NECK: Supple; non-tender; CARD: Normal S1, S2; no murmurs, rubs, or gallops RESP: decreased BS BL , s/p extubation . ABD: Soft, non-distended; non-tender. EXT:pulses are positive NEURO: cn2-12 grossly intact CBCD WBC 8.2 K/mm3 (4.0-10.0) 10/16/18 05:30 RBC 4.17 M/mm3 (4.00-5.60) 10/16/18 05:30 Hgb 11.9 GM/dL (11.7-16.9) 10/16/18 05:30 Hct 34.6 % (35.4-49) L 10/16/18 05:30 MCV 82.9 fl (80-96) 10/16/18 05:30 MCHC 34.5 g/dl (32.0-35.9) 10/16/18 05:30 RDW 14.3 % (11.9-15.9) 10/16/18 05:30 Plt Count 260 K/MM3 (134-434) 10/16/18 05:30 MPV 8.2 fl (7.5-11.1) 10/16/18 05:30 CMP Sodium 140 mmol/L (136-145) 10/16/18 05:30 Potassium 3.7 mmol/L (3.5-5.1) 10/16/18 05:30 Chloride 107 mmol/L (98-107) 10/16/18 05:30 Carbon Dioxide 27 mmol/L (21-32) 10/16/18 05:30 Anion Gap 6 MMOL/L (8-16) L 10/16/18 05:30 BUN 9 mg/dL (7-18) 10/16/18 05:30 Creatinine 0.9 mg/dL (0.55-1.3) 10/16/18 05:30 Creat Clearance w eGFR 80.01 (>60) 10/16/18 05:30 Random Glucose 88 mg/dL (74-106) 10/16/18 05:30 Calcium 7.9 mg/dL (8.5-10.1) L 10/16/18 05:30 Total Bilirubin 1.8 mg/dL (0.2-1) H 10/16/18 05:30 AST 17 U/L (15-37) 10/16/18 05:30 ALT 12 U/L (13-61) L 10/16/18 05:30 Alkaline Phosphatase 88 U/L (45-117) 10/16/18 05:30 Total Protein 5.7 g/dl (6.4-8.2) L 10/16/18 05:30 Albumin 3.0 g/dl (3.4-5.0) L 10/16/18 05:30 CARDIAC ENZYMES Creatine Kinase 65 U/L (26-308) 10/14/18 08:45 Troponin I < 0.02 ng/ml (0.00-0.05) 10/14/18 08:45 Home Medications Medication Instructions Recorded Atorvastatin Calcium 10 mg PO DAILY 10/14/18 Tamsulosin HCl 0.4 mg DAILY 10/14/[address] angiography Clinical information: right-sided hemiplegia Multiplanar imaging was performed following the intravenous administration of nonionic contrast. Individual partition images as well as projection and reformatted images are reviewed. The carotid and vertebral basilar circulations demonstrate no CT evidence of large vessel stenosis or occlusion. No discrete intraluminal defect is seen. There is no definite aneurysm. No extrinsic abnormality is noted. A small nonhemorrhagic infarct is seen within the left basal ganglia/ frontal luna radiata which is probably acute. As noted on recently performed noncontrast CT a partially calcified 1.3 x 0.8 cm right frontal parafalcine meningioma is noted at the high convexity level No perilesional edema is seen. The extracranial carotid arteries demonstrate no discrete stenosis. Moderate calcified atherosclerotic plaque is noted at the level of the proximal left internal carotid artery. The extracranial vertebral arteries are patent bilaterally. No definite vertebral artery stenosis is noted. Evaluation of the vertebral artery origins is somewhat limited due to partially obscuring beam hardening artifact. An endotracheal tube is seen in place with the tip within the upper aspect of the right main stem bronchus. ER staff is aware of this finding. IMPRESSION: The intracranial CT exam demonstrates no evidence of large vessel stenosis or occlusion. No intraluminal defect is identified. No extracranial carotid artery stenosis is seen. Moderate calcified atherosclerotic plaque is noted along the proximal left internal carotid artery. The extracranial vertebral arteries are patent without obvious stenosis. A small left basal ganglia/frontal luna radiata infarct is noted which is probably acute. Brain CTA: Clinical information: right-sided hemiplegia Multiplanar imaging was performed following the intravenous administration of nonionic contrast. Individual partition images as well as projection and reformatted images are reviewed. The carotid and vertebral basilar circulations demonstrate no CT evidence of large vessel stenosis or occlusion. No discrete intraluminal defect is seen. There is no definite aneurysm. No extrinsic abnormality is noted. A small nonhemorrhagic infarct is seen within the left basal ganglia/frontal luna radiata which is probably acute. As noted on recently performed noncontrast CT a partially calcified 1.3 x 0.8 cm right frontal parafalcine meningioma is noted at the high convexity level No perilesional edema is seen. The extracranial carotid arteries demonstrate no discrete stenosis. Moderate calcified atherosclerotic plaque is noted at the level of the proximal left internal carotid artery. The extracranial vertebral arteries are patent bilaterally. No definite vertebral artery stenosis is noted. Evaluation of the vertebral artery origins is somewhat limited due to partially obscuring beam hardening artifact. An endotracheal tube is seen in place with the tip within the upper aspect of the right main stem bronchus. ER staff is aware of this finding.Impression: The intracranial CT exam demonstrates no evidence of large vessel stenosis or occlusion. No intraluminal defect is identified. No extracranial carotid artery stenosis is seen. Moderate calcified atherosclerotic plaque is noted along the proximal left internal carotid artery. The extracranial vertebral arteries are patent without obvious stenosis. A small left basal ganglia/frontal luna radiata infarct is noted which is probably acute. Correlate with follow-up MRI/CT. CT abdoman and pelvis: EXAM#: TYPE/EXAM: RESULT: [id number] CT/ABDOMEN PELVIS CT W/O CONTR HISTORY PROVIDED: Rule out small bowel obstruction TECHNIQUE: Sequential axial images were obtained from the domes of the diaphragm through the symphysis pubis following the administration of oral contrast material. Bilateral pleural effusions and basilar atelectasis is noted. The heart is enlarged. A nasogastric tube is noted within the stomach. The liver, spleen, pancreas, adrenal glands and kidneys demonstrate no significant abnormalities. Gallstones are identified within the gallbladder. There is no evidence of intra- abdominal or retroperitoneal lymphadenopathy or fluid collections. There is no evidence of pneumoperitoneum, bowel obstruction or intra-abdominal abscess. Examination of the pelvis demonstrates no evidence of pelvic masses, fluid collections or lymphadenopathy. The prostate gland is enlarged measuring 5.9 x 5.3 x 6.4 cm. There is no evidence of acute bony abnormalities. IMPRESSION: 1. Bilateral pleural effusions and basilar atelectasis. 2. Cholelithiasis. 3. Hepatic enlargement. 4. No evidence of bowel obstruction or acute pathology within the abdomen or pelvis. Please see above discussion. Reported By: Uriel Seymour MD 10/15/18195210/14/18 08:30 Blood - Peripheral Venous Blood Culture - Preliminary NO GROWTH OBTAINED AFTER 24 HOURS, INCUBATION TO CONTINUE FOR 4 DAYS. 10/14/18 09:17 Blood - Peripheral Venous Blood Culture - Preliminary NO GROWTH OBTAINED AFTER 24 HOURS, INCUBATION TO CONTINUE FOR 4 DAYS. ASSESSMENT AND PLAN: Patient is an 88 year old male with a PMHx of BPH and HLD who was intubated on the field due to apnea and hypoxia . #Acute hypoxic Respiratory Failure: s/p extubation on NC now. #Acute CVA: MRI brain/MRA of the brain as per neuro. pending, ASA was discontinued, patient's hemoglobin is stable with , lipitor 80mg daily #Seizure prophylaxis : antiepileptics continue [place], Neuro consult appreciated #Lactic Acidosis: possible due to aspiration pneumonia as, per family patient vomited and became unresponsive , continue IV Rocephin as per ID #Atelectasis: on IV antibiotics and on the vent. #Hyperlipidemia: on Lipitor 80mg qhs # Hx of BPH #elevated BS: accu check with sliding scale. DVT/GI prophylaxis tele monitoring continue.
[2018-10-16] MEDS: CHLORHEXIDINE GLUCONATE 4% CLEANSER FOR DECOLONIZATION TP SCH (21:34)
[2018-10-16] MEDS: ATORVASTATIN CA 40 MG TABLET (FP) PO SCH (21:34)
[2018-10-17 06:32] LABS: BASO % 0.4 % (0-2.0); EOS % 0.2 % (0-4.5); HEMATOCRIT 36.7 % (35.4-49); HEMOGLOBIN 12.5 GM/dL (11.7-16.9); LYMPH % 13.2 % (8-40); MCH 28.7 pg (25.7-33.7); MEAN CELL VOLUME 84.2 fl (80-96); MEAN PLT VOLUME 8.6 fl (7.5-11.1); MONO % 7.1 % (3.8-10.2); NEUT % 79.1 % (42.8-82.8); PLATELET COUNT 287 K/MM3 (134-434); RBC 4.36 M/mm3 (4.00-5.60); RDW 13.4 % (11.9-15.9); WHITE BLOOD COUNT 7.9 K/mm3 (4.0-10.0)
[2018-10-17 07:15] LABS: ALK PHOS 86 U/L (45-117); ANION GAP 9 MMOL/L (8-16); BILIRUBIN,TOTAL 1.7 mg/dL (0.2-1); BLOOD UREA NITROGEN 10 mg/dL (7-18); CALCIUM 7.7 mg/dL (8.5-10.1); CHLORIDE 106 mmol/L (98-107); CO2 24 mmol/L (21-32); CREATININE 0.8 mg/dL (0.55-1.3); GLUCOSE,RANDOM 72 mg/dL (74-106); MAGNESIUM 1.6 mg/dL (1.8-2.4); PHOSPHOROUS 2.3 mg/dL (2.5-4.9); POTASSIUM 4.3 mmol/L (3.5-5.1); SGOT/AST 17 U/L (15-37); SGPT/ALT 11 U/L (13-61); SODIUM 138 mmol/L (136-145)
--- NOTE | 2018-10-17 08:16 | PN ---
Progress Note, Physician History of Present Illness: comfortable sleeping in bed. oriented to person. thinks he is in [facility]. denies complaints - Current Medication List Current Medications: Active Medications Acetaminophen (Ofirmev Injection -) 1,000 mg IVPB Q6H PRN PRN Reason: PAIN LEVEL 7 - 10 Atorvastatin Calcium (Lipitor -) 80 mg PO HS [facility] Last Admin: 10/16/18 21:34 Dose: 80 mg Chlorhexidine Gluconate (Hibiclens For Decolonization -) 1 applic TP HS [facility] Last Admin: 10/16/18 21:34 Dose: 1 applic Ceftriaxone Sodium 1 gm/ (Dextrose) 50 mls @ 100 mls/hr IVPB DAILY [facility] Last Admin: 10/16/18 11:05 Dose: 100 mls/hr Levetiracetam (Keppra Injection -) 1,000 mg IVPB BID [facility] Last Admin: 10/16/18 21:35 Dose: 1,000 mg Mupirocin (Bactroban Ointment (For Decolonization) -) 1 applic NS BID [facility] Stop: 10/19/18 21:59 Last Admin: 10/16/18 21:34 Dose: 1 applic Pantoprazole Sodium (Protonix Iv) 40 mg IVPUSH DAILY [facility] Last Admin: 10/16/18 13:43 Dose: 40 mg - Objective Vital Signs: Vital Signs Temperature 98.7 F 10/17/18 06:00 Pulse Rate 60 10/17/18 06:00 Respiratory Rate 20 10/17/18 06:00 Blood Pressure 130/61 10/17/18 06:00 O2 Sat by Pulse Oximetry (%) 95 10/16/18 21:00 Constitutional: Yes: Calm Eyes: Yes: Conjunctiva Clear, EOM Intact, PERRL HENT: Yes: Atraumatic, Normocephalic, Other (right nostril - NGT in place clamped.) Neck: Yes: Supple, Trachea Midline. No: Lymphadenopathy, Thyromegaly Cardiovascular: Yes: Regular Rate and Rhythm. No: Murmur Respiratory: Yes: Regular, CTA Bilaterally Gastrointestinal: Yes: Normal Bowel Sounds, Soft Extremities: No: Erythema Edema: No Peripheral Pulses WNL: Yes Integumentary: Yes: WNL Neurological: Yes: Alert, Lethargy. No: Facial Droop Labs: CBC, BMP 10/17/18 05:15 03/16/19 05:15 INR, PTT INR 1.08 (0.83-1.09) 10/14/18 08:43 Assessment/Plan 88 year old man with BPH and HLD, BIBEMS for altered mental status, coffee ground emesis and witnessed seizure tonic/clonic seizure by found to have acute left basal ganglia infarct. NEURO - AMS continues, acute CVA, no repeat seizure activity -MRI pending -Lipitor 80 mg daily -EEG performed, awaiting results -Speech and swallow eval yesterday, concern for aspiration, maintain NGT and NPO until reevaluation on friday -elevate HOB - keppra 1gm IV BID for seizure prophylaxis PULMONARY #Acute Hypoxic Respiratory Failure -Extubated 10/15/18 -Ceftriaxone 1g IVPB daily ordered, as per primary team, completed 4 days, leucoytosis improved(could be due to seizure activity vs infectious source, bld cx have been neg), pt afebrile. dc today GASTROENTEROLOGY -NG tube in for possible feedings, pending repeat swallow eval -Hold AC and Aspirin -Monitor for overt bleeding. Will likely require EGD once patient stable. #Diarrhea as per family on admission, no diarrhea during ICU stay -C.Diff ordered but remains uncollected FEN - hypomagnesemia and hypophosphatemia repleted Prophylaxis -No AC due to possible GI bleed -Protonix 40 mg daily - ahn discontinued - scd's for VTE, defer medical ac as there was a concern for GI bleed/CVA Disposition -Full code. is HCP -stable for telemetry monitoring
[2018-10-17] MEDS ORDERED: MAGNESIUM SULF 50% (8.12 MEQ/2 ML-1 GM VIAL) IVPB ONE (09:30)
--- NOTE | 2018-10-17 09:54 | PN ---
Progress Note (short form) - Note Progress Note: Patient is feeling better , with no acute distress. Vital Signs Temperature 98.7 F 10/17/18 06:00 Pulse Rate 60 10/17/18 06:00 Respiratory Rate 20 10/17/18 06:00 Blood Pressure 130/61 10/17/18 06:00 O2 Sat by Pulse Oximetry (%) 95 10/16/18 21:00 Initial Vital Signs Pulse Resp BP Pulse Ox 81 16 91/51 L 100 10/14/18 08:55 10/14/18 08:55 10/14/18 08:55 10/14/18 08:55 HEAD: Normocephalic; atraumatic EYES: Pupils are 1 mm bilaterally, nonreactive ENMT: External appears normal; normal oropharynx; extubated NECK: Supple; non-tender; CARD: Normal S1, S2; no murmurs, rubs, or gallops RESP: Normal chest excursion with respiration; breath sounds clear and equal bilaterally; no wheezes, rhonchi, or rales ABD: Soft, non-distended; non-tender; no palpable organomegaly, no palpable hernias EXT: Normal ROM in all four extremities; non-tender to palpation; distal pulses intact SKIN: Warm, dry, no rash NEURO: Unresponsive, intubated, does not respond to painful stimuli since on sedation CBCD WBC 7.9 K/mm3 (4.0-10.0) 10/17/18 05:15 RBC 4.36 M/mm3 (4.00-5.60) 10/17/18 05:15 Hgb 12.5 GM/dL (11.7-16.9) 10/17/18 05:15 Hct 36.7 % (35.4-49) 10/17/18 05:15 MCV 84.2 fl (80-96) 10/17/18 05:15 MCHC 34.0 g/dl (32.0-35.9) 10/17/18 05:15 RDW 13.4 % (11.9-15.9) 10/17/18 05:15 Plt Count 287 K/MM3 (134-434) 10/17/18 05:15 MPV 8.6 fl (7.5-11.1) 10/17/18 05:15 CMP Sodium 138 mmol/L (136-145) 10/17/18 05:15 Potassium 4.3 mmol/L (3.5-5.1) 10/17/18 05:15 Chloride 106 mmol/L (98-107) 10/17/18 05:15 Carbon Dioxide 24 mmol/L (21-32) 10/17/18 05:15 Anion Gap 9 MMOL/L (8-16) 10/17/18 05:15 BUN 10 mg/dL (7-18) 10/17/18 05:15 Creatinine 0.8 mg/dL (0.55-1.3) 10/17/18 05:15 Creat Clearance w eGFR 91.66 (>60) 10/17/18 05:15 Random Glucose 72 mg/dL (74-106) L 10/17/18 05:15 Calcium 7.7 mg/dL (8.5-10.1) L 10/17/18 05:15 Total Bilirubin 1.7 mg/dL (0.2-1) H 10/17/18 05:15 AST 17 U/L (15-37) 10/17/18 05:15 ALT 11 U/L (13-61) L 10/17/18 05:15 Alkaline Phosphatase 86 U/L (45-117) 10/17/18 05:15 Total Protein 6.0 g/dl (6.4-8.2) L 10/17/18 05:15 Albumin 3.0 g/dl (3.4-5.0) L 10/17/18 05:15 CARDIAC ENZYMES Creatine Kinase 65 U/L (26-308) 10/14/18 08:45 Troponin I < 0.02 ng/ml (0.00-0.05) 10/14/18 08:45 Current Medications Generic Name Dose Route Start Last Admin Trade Name Freq PRN Reason Stop Dose Admin Acetaminophen 1,000 mg 10/15/18 22:01 Ofirmev Injection - IVPB Q6H PRN PAIN LEVEL 7 - 10 Atorvastatin Calcium 80 mg 10/15/18 22:00 10/16/18 21:34 Lipitor - PO 80 mg HS [facility] Administration Chlorhexidine Gluconate 1 applic 10/14/18 22:00 10/16/18 21:34 Hibiclens For Decolonization - TP 1 applic HS [facility] Administration Ceftriaxone Sodium 1 gm/ 50 mls @ 100 mls/hr 10/14/18 16:15 10/16/18 11:05 Dextrose IVPB 100 mls/hr DAILY [facility] Administration Sodium Phosphate 15 mm/ 105 mls @ 26.25 mls/hr 10/17/18 10:00 Dextrose IVPB 10/17/18 13:59 ONCE ONE Levetiracetam 1,000 mg 10/14/18 14:45 10/16/18 21:35 Keppra Injection - IVPB 1,000 mg BID [facility] Administration Mupirocin 1 applic 10/14/18 22:00 10/16/18 21:34 Bactroban Ointment (For Decolonization) - NS 10/19/18 21:59 1 applic BID [facility] Administration Pantoprazole Sodium 40 mg 10/16/18 11:30 10/16/18 13:43 Protonix Iv IVPUSH 40 mg DAILY [facility] Administration Home Medications Medication Instructions Recorded Atorvastatin Calcium 10 mg PO DAILY 10/14/18 Tamsulosin HCl 0.4 mg DAILY 10/14/[address] angiography Clinical information: right-sided hemiplegia Multiplanar imaging was performed following the intravenous administration of nonionic contrast. Individual partition images as well as projection and reformatted images are reviewed. The carotid and vertebral basilar circulations demonstrate no CT evidence of large vessel stenosis or occlusion. No discrete intraluminal defect is seen. There is no definite aneurysm. No extrinsic abnormality is noted. A small nonhemorrhagic infarct is seen within the left basal ganglia/ frontal luna radiata which is probably acute. As noted on recently performed noncontrast CT a partially calcified 1.3 x 0.8 cm right frontal parafalcine meningioma is noted at the high convexity level No perilesional edema is seen. The extracranial carotid arteries demonstrate no discrete stenosis. Moderate calcified atherosclerotic plaque is noted at the level of the proximal left internal carotid artery. The extracranial vertebral arteries are patent bilaterally. No definite vertebral artery stenosis is noted. Evaluation of the vertebral artery origins is somewhat limited due to partially obscuring beam hardening artifact. An endotracheal tube is seen in place with the tip within the upper aspect of the right main stem bronchus. ER staff is aware of this finding. IMPRESSION: The intracranial CT exam demonstrates no evidence of large vessel stenosis or occlusion. No intraluminal defect is identified. No extracranial carotid artery stenosis is seen. Moderate calcified atherosclerotic plaque is noted along the proximal left internal carotid artery. The extracranial vertebral arteries are patent without obvious stenosis. A small left basal ganglia/frontal luna radiata infarct is noted which is probably acute. Brain CTA: Clinical information: right-sided hemiplegia Multiplanar imaging was performed following the intravenous administration of nonionic contrast. Individual partition images as well as projection and reformatted images are reviewed. The carotid and vertebral basilar circulations demonstrate no CT evidence of large vessel stenosis or occlusion. No discrete intraluminal defect is seen. There is no definite aneurysm. No extrinsic abnormality is noted. A small nonhemorrhagic infarct is seen within the left basal ganglia/frontal luna radiata which is probably acute. As noted on recently performed noncontrast CT a partially calcified 1.3 x 0.8 cm right frontal parafalcine meningioma is noted at the high convexity level No perilesional edema is seen. The extracranial carotid arteries demonstrate no discrete stenosis. Moderate calcified atherosclerotic plaque is noted at the level of the proximal left internal carotid artery. The extracranial vertebral arteries are patent bilaterally. No definite vertebral artery stenosis is noted. Evaluation of the vertebral artery origins is somewhat limited due to partially obscuring beam hardening artifact. An endotracheal tube is seen in place with the tip within the upper aspect of the right main stem bronchus. ER staff is aware of this finding.Impression: The intracranial CT exam demonstrates no evidence of large vessel stenosis or occlusion. No intraluminal defect is identified. No extracranial carotid artery stenosis is seen. Moderate calcified atherosclerotic plaque is noted along the proximal left internal carotid artery. The extracranial vertebral arteries are patent without obvious stenosis. A small left basal ganglia/frontal luna radiata infarct is noted which is probably acute. Correlate with follow-up MRI/CT. CT abdoman and pelvis: EXAM#: TYPE/EXAM: RESULT: [id number] CT/ABDOMEN PELVIS CT W/O CONTR HISTORY PROVIDED: Rule out small bowel obstruction TECHNIQUE: Sequential axial images were obtained from the domes of the diaphragm through the symphysis pubis following the administration of oral contrast material. Bilateral pleural effusions and basilar atelectasis is noted. The heart is enlarged. A nasogastric tube is noted within the stomach. The liver, spleen, pancreas, adrenal glands and kidneys demonstrate no significant abnormalities. Gallstones are identified within the gallbladder. There is no evidence of intra- abdominal or retroperitoneal lymphadenopathy or fluid collections. There is no evidence of pneumoperitoneum, bowel obstruction or intra-abdominal abscess. Examination of the pelvis demonstrates no evidence of pelvic masses, fluid collections or lymphadenopathy. The prostate gland is enlarged measuring 5.9 x 5.3 x 6.4 cm. There is no evidence of acute bony abnormalities. IMPRESSION: 1. Bilateral pleural effusions and basilar atelectasis. 2. Cholelithiasis. 3. Hepatic enlargement. 4. No evidence of bowel obstruction or acute pathology within the abdomen or pelvis. Please see above discussion. Reported By: Uriel Seymour MD 10/15/18195210/14/18 08:30 Blood - Peripheral Venous Blood Culture - Preliminary NO GROWTH OBTAINED AFTER 24 HOURS, INCUBATION TO CONTINUE FOR 4 DAYS. 10/14/18 09:17 Blood - Peripheral Venous Blood Culture - Preliminary NO GROWTH OBTAINED AFTER 24 HOURS, INCUBATION TO CONTINUE FOR 4 DAYS. ASSESSMENT AND PLAN: Patient is an 88 year old male with a PMHx of BPH and HLD who was intubated on the field due to apnea and hypoxia . #Acute hypoxic Respiratory Failure: s/p intubation in ICU. Rest of management per ICU, weaning trial for extubation today #Acute CVA: MRI brain is pending , ASA was discontinued , since h/h is stable will place him back to ecotrin 81mg po daily , most [facility] patient has left mca stroke ( Left luna radiata on ct head). lipitor 80mg daily . #Seizure prophylaxis : antiepileptics continue Starla, Neuro consult appreciated #Atelectasis: on IV antibiotics s/p vent. #Hyperlipidemia: on Lipitor 80mg qhs # Hx of BPH #elevated BS: accu check with sliding scale. as per GI to get GGT to evaluate alk phos DVT/GI prophylaxis telemetry now. Visit type - Emergency Visit Emergency Visit: Yes ED Registration Date: 10/14/18 Care time: The patient presented to the Emergency Department on the above date and was hospitalized for further evaluation of their emergent condition. - New Patient This patient is new to me today: No - Critical Care Critical Care patient: No - Discharge Referral Referred to [facility] Med P.C.: No
[2018-10-17] MEDS ORDERED: WATER IVPB ONE (10:00)
[2018-10-17] MEDS ORDERED: DEXTROSE IVPB ONE (10:00)
[2018-10-17] MEDS ORDERED: SODIUM PHOSPHATE IVPB ONE (10:00)
[2018-10-17] MEDS ORDERED: cefTRIAXone SODIUM 1 GM VIAL ONE (10:28)
[2018-10-17] MEDS ORDERED: DEXTROSE 5%-WATER - 50 ML IVPB ONE (10:29)
[2018-10-17] MEDS: CEFTRIAXONE 1 GM in DEXTROSE 5%-WATER - 50 ML IVPB SCH (10:51)
[2018-10-17] MEDS: levETIRAcetam 500 MG/5 ML INJECTION VIAL IVPB SCH ×2 (10:54→23:08)
[2018-10-17] MEDS: PANTOPRAZOLE SODIUM 40 MG VIAL IVPUSH SCH (10:55)
[2018-10-17] MEDS: MUPIROCIN 2% TOPICAL OINTMENT FOR DECOLONIZATION NS SCH (10:57)
--- NOTE | 2018-10-17 11:20 | PN ---
Teaching Attending Note Name of Resident: Meenu Fox ATTENDING PHYSICIAN STATEMENT I saw and evaluated the patient. I reviewed the resident's note and discussed the case with the resident. I agree with the resident's findings and plan as documented. SUBJECTIVE: Pt seen and examined in the ICU. Remains extubated, confused. Denies headache, shortness of breath or chest pain. OBJECTIVE: Vital Signs Period Temp Pulse Resp BP Sys/Ludwig Pulse Ox Last 24 Hr 97.8 F-98.7 F 52-63 15-22 110-135/51-73 95 Intake & Output 10/14/18 10/15/18 10/16/18 10/17/18 23:59 23:59 23:59 23:59 Intake Total 750 4213 2551 100 Output Total 6539 074 6569 Balance -550 3413 151 100 Weight 85.304 kg 83.631 kg 82.554 kg Gen: confused but NAD Heart: RRR Lung: decreased breath sounds at the bases Abd: soft, nontender Ext: no edema CBC, BMP 10/17/18 05:15 10/17/18 05:15 Active Medications Acetaminophen (Ofirmev Injection -) 1,000 mg IVPB Q6H PRN PRN Reason: PAIN LEVEL 7 - 10 Atorvastatin Calcium (Lipitor -) 80 mg PO HS [facility] Last Admin: 10/16/18 21:34 Dose: 80 mg Chlorhexidine Gluconate (Hibiclens For Decolonization -) 1 applic TP HS [facility] Last Admin: 10/16/18 21:34 Dose: 1 applic Ceftriaxone Sodium 1 gm/ (Dextrose) 50 mls @ 100 mls/hr IVPB DAILY [facility] Last Admin: 10/17/18 10:51 Dose: 100 mls/hr Sodium Phosphate 15 mm/ (Dextrose) 105 mls @ 26.25 mls/hr IVPB ONCE ONE Stop: 10/17/18 13:59 Levetiracetam (Keppra Injection -) 1,000 mg IVPB BID [facility] Last Admin: 10/17/18 10:54 Dose: 1,000 mg Mupirocin (Bactroban Ointment (For Decolonization) -) 1 applic NS BID [facility] Stop: 10/19/18 21:59 Last Admin: 10/17/18 10:57 Dose: 1 applic Pantoprazole Sodium (Protonix Iv) 40 mg IVPUSH DAILY [facility] Last Admin: 10/17/18 10:55 Dose: 40 mg ASSESSMENT AND PLAN: Acute CVA Seizure s/p Acute Respiratory Failure Lactic Acidosis Atelectasis Hyperlipidemia BPH - O2 to keep Spo2 >90% - continue antiepileptics - IVF - replete lytes - aspiration precautions - can d/c empiric antibiotics - DVT/GI prophylaxis - can monitor on telemetry
--- NOTE | 2018-10-17 14:26 | PN ---
Progress Note (short form) - Note Progress Note: 88 year old male histoyr of HLD,BPH. He was found unresponsive, patient had tonic clonic seizure and enroute to hospital .He was intubated and thought to have right sided hemiparesis, on ct head no big stroke or cta of neck and brain was normal. Patient was transferred to icu and remain intubated, he is started on keppra 1 gm iv bid. His repeat ct had on cta showed there is possible left basal ganglia stroke Patient remains confused and keep repeating words . Patient was seen by speech pathology and repeat ct scan was unchanged. NEUROLOGICAL EXAMIANTION extubated and alert oriented x 0, repeating same sentence asking to do something eomi, pupils reactive, no face asymmetry Moving all ext ct head , cta of neck and brain unremarkable Repeat ct head is unchanged mri of brain is pending Assessment 88 year old male history of BPH, HLD. Patient presented to hospital for seizure and ? stroke. He has no extremity weakness. 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
[2018-10-17] MEDS ORDERED: ACETAMINOPHEN 1000 MG/100 ML VIAL (NON FORMULARY) IVPB PRN (17:28)
[2018-10-17] MEDS ORDERED: MUPIROCIN 2% TOPICAL OINTMENT FOR DECOLONIZATION NS SCH (22:00)
[2018-10-17] MEDS ORDERED: CHLORHEXIDINE GLUCONATE 4% CLEANSER FOR DECOLONIZATION TP SCH (22:00)
[2018-10-17] MEDS: ATORVASTATIN CA 80 MG TABLET (FP) PO SCH (23:09)
[2018-10-18 06:54] LABS: BASO % 0.4 % (0-2.0); EOS % 0.3 % (0-4.5); HEMATOCRIT 34.8 % (35.4-49); HEMOGLOBIN 12.4 GM/dL (11.7-16.9); LYMPH % 22.5 % (8-40); MCH 29.3 pg (25.7-33.7); MCHC 35.6 g/dl (32.0-35.9); MEAN CELL VOLUME 82.2 fl (80-96); MEAN PLT VOLUME 8.4 fl (7.5-11.1); MONO % 7.4 % (3.8-10.2); NEUT % 69.4 % (42.8-82.8); PLATELET COUNT 309 K/MM3 (134-434); RBC 4.24 M/mm3 (4.00-5.60); RDW 13.4 % (11.9-15.9); WHITE BLOOD COUNT 7.3 K/mm3 (4.0-10.0)
[2018-10-18 07:26] LABS: ANION GAP 9 MMOL/L (8-16); BLOOD UREA NITROGEN 13 mg/dL (7-18); CALCIUM 8.1 mg/dL (8.5-10.1); CHLORIDE 102 mmol/L (98-107); CO2 25 mmol/L (21-32); CREATININE 0.7 mg/dL (0.55-1.3); GLUCOSE,RANDOM 76 mg/dL (74-106); MAGNESIUM 2.3 mg/dL (1.8-2.4); PHOSPHOROUS 2.8 mg/dL (2.5-4.9); POTASSIUM 3.5 mmol/L (3.5-5.1); SODIUM 136 mmol/L (136-145)
[2018-10-18] MEDS: levETIRAcetam 500 MG/5 ML INJECTION VIAL IVPB SCH ×2 (09:03→22:42)
[2018-10-18] MEDS: PANTOPRAZOLE SODIUM 40 MG VIAL IVPUSH SCH (09:03)
[2018-10-18] MEDS ORDERED: DEXTROSE 5%-NORMAL SALINE 1,000 ML IV SCH ×2 (09:15→10:15)
--- NOTE | 2018-10-18 09:38 | PN ---
Physical Exam: SUBJECTIVE: Pt awake this morning, speaking logically in [place], however confused. Pt oriented only to self and he reports being in [place] in 2000. Pt denies any pain. Pt reports he is hungry at this time. OBJECTIVE: Vital Signs Period Temp Pulse Resp BP Sys/Ludwig Pulse Ox Last 24 Hr 98.1 F-99.6 F 58-72 18-23 105-133/49-76 93-96 GENERAL: The patient is awake, alert, and oriented only to self, in no acute distress. HEENT: NC/AT, ANDREW, sclera anicteric, dry MM LUNGS: CTA bilaterally, no wheezes, no crackles, no accessory muscle use. HEART: RRR, S1, S2 without murmur ABDOMEN: Soft, nontender, nondistended, normoactive bowel sounds, no guarding EXTREMITIES: 2+ pulses, warm, no edema. NEUROLOGICAL: ? minimally dysarthria however rest of CN's intact. Strength 5/5 and symmetrical in upper and lower extremity baldwin. Sensation difficult to ascertain due to pt's clinical status. Gait not observed. PSYCH: Normal mood, normal affect. SKIN: Warm, dry, no rashes or lesions noted Laboratory Results - last 24 hr 10/18/18 10/18/18 05:30 05:30 WBC 7.3 RBC 4.24 Hgb 12.4 Hct 34.8 L MCV 82.2 MCH 29.3 MCHC 35.6 RDW 13.4 Plt Count 309 MPV 8.4 Absolute Neuts (auto) 5.1 Neutrophils % 69.4 Lymphocytes % 22.5 D Monocytes % 7.4 Eosinophils % 0.3 Basophils % 0.4 Nucleated RBC % 0 Sodium 136 Potassium 3.5 Chloride 102 Carbon Dioxide 25 Anion Gap 9 BUN 13 Creatinine 0.7 Creat Clearance w eGFR 106.93 Random Glucose 76 Calcium 8.1 L Phosphorus 2.8 Magnesium 2.3 Active Medications Generic Name Dose Route Start Last Admin Trade Name Freq PRN Reason Stop Dose Admin Acetaminophen 1,000 mg 10/17/18 17:28 Ofirmev Injection - IVPB Q6H PRN PAIN LEVEL 7 - 10 Atorvastatin Calcium 80 mg 10/17/18 22:00 10/17/18 23:09 Lipitor - PO 80 mg HS [facility] Administration Dextrose/Sodium Chloride 1,000 mls @ 50 mls/hr 10/18/18 09:15 D5-Ns - IV ASDIR [facility] Levetiracetam 1,000 mg 10/17/18 22:00 10/18/18 09:03 Keppra Injection - IVPB 1,000 mg BID [facility] Administration Pantoprazole Sodium 40 mg 10/16/18 11:30 10/18/18 09:03 Protonix Iv IVPUSH 40 mg DAILY [facility] Administration ASSESSMENT/PLAN: Acute CVA Acute hypoxic respiratory failure (resolved) Seizure history Hyperlipidemia Hyperglycemia (resolved) BPH --Pt improved, yet still confused --Neurology on board --Will need to get MRI brain --EEG is pending; f/u read of study --Continue Lipitor 80mg HS --Continue AED with Keppra 1gm BID IVPB --ASA 81mg qDaily added now that H/H is stable --Hyperglycemia resolved FEN: Fluids: D5-NS @50cc/hr for 1L Electrolyte abnormalities: Nutrition: NPO; can plan on MBS given pt's improved status for swallow evaluation PPX: DVT - SCDs for now given pt's GI - Protonix daily Dispo: Continue stroke monitoring for neurochecks Case discussed with Dr. Russel Hyman, DO - IM PGY-2 Visit type - Emergency Visit Emergency Visit: Yes ED Registration Date: 10/14/18 Care time: The patient presented to the Emergency Department on the above date and was hospitalized for further evaluation of their emergent condition. - New Patient This patient is new to me today: No - Critical Care Critical Care patient: No
[2018-10-18] MEDS ORDERED: CEFTRIAXONE 1 GM in DEXTROSE 5%-WATER - 50 ML IVPB SCH (10:00)
--- NOTE | 2018-10-18 10:30 | PN ---
Progress Note (short form) - Note Progress Note: 88 year old male histoyr of HLD,BPH. He was found unresponsive, patient had tonic clonic seizure and enroute to hospital .He was intubated and thought to have right sided hemiparesis, on ct head no big stroke or cta of neck and brain was normal. Patient was transferred to icu and remain intubated, he is started on keppra 1 gm iv bid. His repeat ct had on cta showed there is possible left basal ganglia stroke Patient seems be much improved, and he is able to answer question and not restrained. He is able to engage in conversation, his speech is slurred . NEUROLOGICAL EXAMIANTION alert oriented x 1 Today he is not repeating same sentence able to follow simple command and speech is slurred eomi, pupils reactive, no face asymmetry Moving all ext ct head , cta of neck and brain unremarkable Repeat ct head is unchanged mri of brain is pending eeg showed encephalopathic changes Assessment 88 year old male history of BPH, HLD. Patient presented to hospital for seizure and ? stroke. He has no extremity weakness. Most likley he has left mca stroke ( Left luna radiata on ct head), mri of brain is pending. He is improved since he came to floor. Likely that he was in icu delirium due to concurrent medical problem and perhaps cognitive dysfunction. Plan: continue statin and hold apsirin due to gi bleed - Discuss with nursing staff to push for mri of brain - continue keppra and would follow up on eeg - eeg is pending - will continue to follow with primary Thanking you so much Fred Villeda MD
--- NOTE | 2018-10-18 11:49 | PN ---
Progress Note (short form) - Note Progress Note: PULMONARY Sleeping but easily arousable. No shortness of breath or chest pain. Vital Signs Period Temp Pulse Resp BP Sys/Ludwig Pulse Ox Last 24 Hr 98.1 F-98.6 F 58-68 18-23 105-133/50-76 93-96 Gen: NAD at rest Heart: RRR Lung: decreased breath sounds at the bases Abd: soft, nontender Ext: no edema CBC, BMP 10/18/18 05:30 10/18/18 05:30 Active Medications Acetaminophen (Ofirmev Injection -) 1,000 mg IVPB Q6H PRN PRN Reason: PAIN LEVEL 7 - 10 Atorvastatin Calcium (Lipitor -) 80 mg PO HS [facility] Last Admin: 10/17/18 23:09 Dose: 80 mg Dextrose/Sodium Chloride (D5-Ns -) 1,000 mls @ 50 mls/hr IV ASDIR [facility] Stop: 10/19/18 06:14 Last Admin: 10/18/18 10:16 Dose: 50 mls/hr Levetiracetam (Keppra Injection -) 1,000 mg IVPB BID [facility] Last Admin: 10/18/18 09:03 Dose: 1,000 mg Pantoprazole Sodium (Protonix Iv) 40 mg IVPUSH DAILY [facility] Last Admin: 10/18/18 09:03 Dose: 40 mg A/P Acute CVA Seizure s/p Acute Respiratory Failure Lactic Acidosis Atelectasis Hyperlipidemia BPH - O2 to keep Spo2 >90% - continue antiepileptics - IVF - replete lytes - aspiration precautions - s/p empiric antibiotics - DVT prophylaxis
[2018-10-18] MEDS: ASPIRIN COATED 81 MG TABLET.EC PO SCH (13:21)
--- NOTE | 2018-10-18 19:26 | PN ---
Teaching Attending Note Name of Resident: Addy Hyman ATTENDING PHYSICIAN STATEMENT I saw and evaluated the patient. I reviewed the resident's note and discussed the case with the resident. I agree with the resident's findings and plan as documented. SUBJECTIVE: Patient is feeling better with no acute distress, no shortness of breath, speech is improving. OBJECTIVE: Vital Signs Temperature 97.8 F 10/18/18 14:00 Pulse Rate 64 10/18/18 14:00 Respiratory Rate 20 10/18/18 10:00 Blood Pressure 110/50 L 10/18/18 14:00 O2 Sat by Pulse Oximetry (%) 96 10/18/18 10:00 HEAD: Normocephalic; atraumatic EYES: Pupils are 1 mm bilaterally, nonreactive NECK: Supple; non-tender; RESP: Normal chest excursion with respiration; breath sounds clear and equal bilaterally CARD: Normal S1, S2; no murmurs, rubs, or gallops ABD: Soft, non-distended; non-tender; no palpable organomegaly, no palpable hernias EXT: Normal ROM in all four extremities; non-tender to palpation; distal pulses intact SKIN: Warm, dry, no rash NEURO: cn 2-12 grossly intact , speech is improving CBCD WBC 7.3 K/mm3 (4.0-10.0) 10/18/18 05:30 RBC 4.24 M/mm3 (4.00-5.60) 10/18/18 05:30 Hgb 12.4 GM/dL (11.7-16.9) 10/18/18 05:30 Hct 34.8 % (35.4-49) L 10/18/18 05:30 MCV 82.2 fl (80-96) 10/18/18 05:30 MCHC 35.6 g/dl (32.0-35.9) 10/18/18 05:30 RDW 13.4 % (11.9-15.9) 10/18/18 05:30 Plt Count 309 K/MM3 (134-434) 10/18/18 05:30 MPV 8.4 fl (7.5-11.1) 10/18/18 05:30 CMP Sodium 136 mmol/L (136-145) 10/18/18 05:30 Potassium 3.5 mmol/L (3.5-5.1) 10/18/18 05:30 Chloride 102 mmol/L (98-107) 10/18/18 05:30 Carbon Dioxide 25 mmol/L (21-32) 10/18/18 05:30 Anion Gap 9 MMOL/L (8-16) 10/18/18 05:30 BUN 13 mg/dL (7-18) 10/18/18 05:30 Creatinine 0.7 mg/dL (0.55-1.3) 10/18/18 05:30 Creat Clearance w eGFR 106.93 (>60) 10/18/18 05:30 Random Glucose 76 mg/dL (74-106) 10/18/18 05:30 Calcium 8.1 mg/dL (8.5-10.1) L 10/18/18 05:30 Total Bilirubin 1.7 mg/dL (0.2-1) H 10/17/18 05:15 AST 17 U/L (15-37) 10/17/18 05:15 ALT 11 U/L (13-61) L 10/17/18 05:15 Alkaline Phosphatase 86 U/L (45-117) 10/17/18 05:15 Total Protein 6.0 g/dl (6.4-8.2) L 10/17/18 05:15 Albumin 3.0 g/dl (3.4-5.0) L 10/17/18 05:15 CARDIAC ENZYMES Creatine Kinase 65 U/L (26-308) 10/14/18 08:45 Troponin I < 0.02 ng/ml (0.00-0.05) 10/14/18 08:45 Current Medications Generic Name Dose Route Start Last Admin Trade Name Alexia PRN Reason Stop Dose Admin Acetaminophen 1,000 mg 10/17/18 17:28 Ofirmev Injection - IVPB Q6H PRN PAIN LEVEL 7 - 10 Aspirin 81 mg 10/18/18 13:00 10/18/18 13:21 Ecotrin - PO 81 mg DAILY BARRETT Administration Atorvastatin Calcium 80 mg 10/17/18 22:00 10/17/18 23:09 Lipitor - PO 80 mg HS BARRETT Administration Dextrose/Sodium Chloride 1,000 mls @ 50 mls/hr 10/18/18 10:15 10/18/18 10:16 D5-Ns - IV 10/19/18 06:14 50 mls/hr ASDIR BARRETT Administration Levetiracetam 1,000 mg 10/17/18 22:00 10/18/18 09:03 Keppra Injection - IVPB 1,000 mg BID BARRETT Administration Pantoprazole Sodium 40 mg 10/16/18 11:30 10/18/18 09:03 Protonix Iv IVPUSH 40 mg DAILY BARRETT Administration Home Medications Medication Instructions Recorded Atorvastatin Calcium 10 mg PO DAILY 10/14/18 Tamsulosin HCl 0.4 mg DAILY 10/14/18 ASSESSMENT AND PLAN: Neck CT angiography Clinical information: right-sided hemiplegia Multiplanar imaging was performed following the intravenous administration of nonionic contrast. Individual partition images as well as projection and reformatted images are reviewed. The carotid and vertebral basilar circulations demonstrate no CT evidence of large vessel stenosis or occlusion. No discrete intraluminal defect is seen. There is no definite aneurysm. No extrinsic abnormality is noted. A small nonhemorrhagic infarct is seen within the left basal ganglia/ frontal luna radiata which is probably acute. As noted on recently performed noncontrast CT a partially calcified 1.3 x 0.8 cm right frontal parafalcine meningioma is noted at the high convexity level No perilesional edema is seen. The extracranial carotid arteries demonstrate no discrete stenosis. Moderate calcified atherosclerotic plaque is noted at the level of the proximal left internal carotid artery. The extracranial vertebral arteries are patent bilaterally. No definite vertebral artery stenosis is noted. Evaluation of the vertebral artery origins is somewhat limited due to partially obscuring beam hardening artifact. An endotracheal tube is seen in place with the tip within the upper aspect of the right main stem bronchus. ER staff is aware of this finding. IMPRESSION: The intracranial CT exam demonstrates no evidence of large vessel stenosis or occlusion. No intraluminal defect is identified. No extracranial carotid artery stenosis is seen. Moderate calcified atherosclerotic plaque is noted along the proximal left internal carotid artery. The extracranial vertebral arteries are patent without obvious stenosis. A small left basal ganglia/frontal luna radiata infarct is noted which is probably acute. Brain CTA: Clinical information: right-sided hemiplegia Multiplanar imaging was performed following the intravenous administration of nonionic contrast. Individual partition images as well as projection and reformatted images are reviewed. The carotid and vertebral basilar circulations demonstrate no CT evidence of large vessel stenosis or occlusion. No discrete intraluminal defect is seen. There is no definite aneurysm. No extrinsic abnormality is noted. A small nonhemorrhagic infarct is seen within the left basal ganglia/frontal luna radiata which is probably acute. As noted on recently performed noncontrast CT a partially calcified 1.3 x 0.8 cm right frontal parafalcine meningioma is noted at the high convexity level No perilesional edema is seen. The extracranial carotid arteries demonstrate no discrete stenosis. Moderate calcified atherosclerotic plaque is noted at the level of the proximal left internal carotid artery. The extracranial vertebral arteries are patent bilaterally. No definite vertebral artery stenosis is noted. Evaluation of the vertebral artery origins is somewhat limited due to partially obscuring beam hardening artifact. An endotracheal tube is seen in place with the tip within the upper aspect of the right main stem bronchus. ER staff is aware of this finding.Impression: The intracranial CT exam demonstrates no evidence of large vessel stenosis or occlusion. No intraluminal defect is identified. No extracranial carotid artery stenosis is seen. Moderate calcified atherosclerotic plaque is noted along the proximal left internal carotid artery. The extracranial vertebral arteries are patent without obvious stenosis. A small left basal ganglia/frontal luna radiata infarct is noted which is probably acute. Correlate with follow-up MRI/CT. CT abdoman and pelvis: EXAM#: TYPE/EXAM: RESULT: [id number] CT/ABDOMEN PELVIS CT W/O CONTR HISTORY PROVIDED: Rule out small bowel obstruction TECHNIQUE: Sequential axial images were obtained from the domes of the diaphragm through the symphysis pubis following the administration of oral contrast material. Bilateral pleural effusions and basilar atelectasis is noted. The heart is enlarged. A nasogastric tube is noted within the stomach. The liver, spleen, pancreas, adrenal glands and kidneys demonstrate no significant abnormalities. Gallstones are identified within the gallbladder. There is no evidence of intra- abdominal or retroperitoneal lymphadenopathy or fluid collections. There is no evidence of pneumoperitoneum, bowel obstruction or intra-abdominal abscess. Examination of the pelvis demonstrates no evidence of pelvic masses, fluid collections or lymphadenopathy. The prostate gland is enlarged measuring 5.9 x 5.3 x 6.4 cm. There is no evidence of acute bony abnormalities. IMPRESSION: 1. Bilateral pleural effusions and basilar atelectasis. 2. Cholelithiasis. 3. Hepatic enlargement. 4. No evidence of bowel obstruction or acute pathology within the abdomen or pelvis. Please see above discussion. Reported By: Uriel Seymour MD 10/15/18 1953 10/14/18 08:30 Blood - Peripheral Venous Blood Culture - Preliminary NO GROWTH OBTAINED AFTER 24 HOURS, INCUBATION TO CONTINUE FOR 4 DAYS. 10/14/18 09:17 Blood - Peripheral Venous Blood Culture - Preliminary NO GROWTH OBTAINED AFTER 24 HOURS, INCUBATION TO CONTINUE FOR 4 DAYS. ASSESSMENT AND PLAN: Patient is an 88 year old male with a PMHx of BPH and HLD who was intubated on the field due to apnea and hypoxia . #Acute hypoxic Respiratory Failure: s/p extubation s/p Abx #questionable left MCA CVA: MRI brain is pending , ASA was discontinued , since h/h is stable will place him back to ecotrin 81mg po daily. lipitor 80mg daily . #Seizure prophylaxis : antiepileptics continue [facility] consult appreciated #Atelectasis: s/p vent. #Hyperlipidemia: on Lipitor 80mg qhs # Hx of BPH #elevated BS: accu check with sliding scale. DVT/GI prophylaxis telemetry now.
[2018-10-18] MEDS: ATORVASTATIN CA 80 MG TABLET (FP) PO SCH (22:42)
[2018-10-19 07:05] LABS: BASO % 1.2 % (0-2.0); EOS % 0.7 % (0-4.5); HEMATOCRIT 35.6 % (35.4-49); HEMOGLOBIN 12.5 GM/dL (11.7-16.9); LYMPH % 30.3 % (8-40); MCH 28.7 pg (25.7-33.7); MCHC 35.2 g/dl (32.0-35.9); MEAN CELL VOLUME 81.6 fl (80-96); MEAN PLT VOLUME 7.7 fl (7.5-11.1); MONO % 9.3 % (3.8-10.2); NEUT % 58.5 % (42.8-82.8); PLATELET COUNT 339 K/MM3 (134-434); RBC 4.37 M/mm3 (4.00-5.60); RDW 13.6 % (11.9-15.9); WHITE BLOOD COUNT 5.2 K/mm3 (4.0-10.0)
[2018-10-19 07:46] LABS: ALBUMIN 2.9 g/dl (3.4-5.0); ALK PHOS 77 U/L (45-117); ANION GAP 5 MMOL/L (8-16); BILIRUBIN,TOTAL 1.1 mg/dL (0.2-1); BLOOD UREA NITROGEN 14 mg/dL (7-18); CALCIUM 8.3 mg/dL (8.5-10.1); CHLORIDE 105 mmol/L (98-107); CO2 29 mmol/L (21-32); CREATININE 0.7 mg/dL (0.55-1.3); GAMMA GLUTAMYL TRANSPEPTIDASE 35 U/L (5-85); GLUCOSE,RANDOM 106 mg/dL (74-106); MAGNESIUM 2.3 mg/dL (1.8-2.4); PHOSPHOROUS 2.6 mg/dL (2.5-4.9); POTASSIUM 3.7 mmol/L (3.5-5.1); SGOT/AST 18 U/L (15-37); SGPT/ALT 13 U/L (13-61); SODIUM 138 mmol/L (136-145); TOT PROT 5.9 g/dl (6.4-8.2)
[2018-10-19] MEDS: ASPIRIN COATED 81 MG TABLET.EC PO SCH (11:10)
[2018-10-19] MEDS: PANTOPRAZOLE SODIUM 40 MG VIAL IVPUSH SCH (11:29)
[2018-10-19] MEDS: levETIRAcetam 500 MG/5 ML INJECTION VIAL IVPB SCH ×2 (11:29→21:53)
--- NOTE | 2018-10-19 11:39 | PN ---
Progress Note, [employer] - Note Progress Note: Language and swallowing improving. Pt now following 1 stage commands 70% of time , responding to simple questions, perseverating but less. Overtly chewed cookie well and had thin water, initially fine. Delayed sudden cough 5-10 seconds after completion. r/o silent aspiration Suggest MBS to further assess swallowing function Continue speech tx upon d/c.
--- NOTE | 2018-10-19 14:52 | PN ---
Progress Note (short form) - Note Progress Note: Patient away for MRI. Dr Dyson
--- NOTE | 2018-10-19 16:52 | PN ---
Physical Exam: SUBJECTIVE: Patient seen and examined at bedside. No acute events overnight. at bedside. OBJECTIVE: Vital Signs Period Temp Pulse Resp BP Sys/Ludwig Pulse Ox Last 24 Hr 97.5 F-98.0 F 53-66 18-20 114-151/57-70 94 GENERAL: Awake Alert NAD HEENT: Atraumatic/Normocephalic EYES: Pupils reactive LUNGS: CTAB HEART: RRR nl s1s2 ABDOMEN: NDNT No HSM EXTREMITIES: No CCE. SCD's PSYCH: Normal mood, normal affect. SKIN: Warm, dry, normal turgor, no rashes or lesions noted Laboratory Results - last 24 hr 10/19/18 10/19/18 06:35 06:35 WBC 5.2 RBC 4.37 Hgb 12.5 Hct 35.6 MCV 81.6 MCH 28.7 MCHC 35.2 RDW 13.6 Plt Count 339 MPV 7.7 Absolute Neuts (auto) 3.0 Neutrophils % 58.5 Lymphocytes % 30.3 D Monocytes % 9.3 Eosinophils % 0.7 D Basophils % 1.2 Nucleated RBC % 0 Sodium 138 Potassium 3.7 Chloride 105 Carbon Dioxide 29 Anion Gap 5 L BUN 14 Creatinine 0.7 Creat Clearance w eGFR 106.93 Random Glucose 106 Calcium 8.3 L Phosphorus 2.6 Magnesium 2.3 Total Bilirubin 1.1 H GGT 35 AST 18 ALT 13 Alkaline Phosphatase 77 Total Protein 5.9 L Albumin 2.9 L Active Medications Generic Name Dose Route Start Last Admin Trade Name Freq PRN Reason Stop Dose Admin Acetaminophen 1,000 mg 10/17/18 17:28 Ofirmev Injection - IVPB Q6H PRN PAIN LEVEL 7 - 10 Aspirin 81 mg 10/18/18 13:00 10/19/18 11:10 Ecotrin - PO 81 mg DAILY BARRETT Administration Atorvastatin Calcium 80 mg 10/17/18 22:00 10/18/18 22:42 Lipitor - PO 80 mg HS BARRETT Administration Levetiracetam 1,000 mg 10/17/18 22:00 10/19/18 11:29 Keppra Injection - IVPB 1,000 mg BID BARRETT Administration Pantoprazole Sodium 40 mg 10/16/18 11:30 10/19/18 11:29 Protonix Iv IVPUSH 40 mg DAILY BARRETT Administration ASSESSMENT/PLAN: 88 y/o M with PMH BPH, HLD, who presents to the ED after he was found unresponsive at home by his this AM. #L Basal Ganglia Ischemic Stroke -ECHO---> L Ventricular size, function, thickness WNL -carotids already done via head CTA- moderate calc plaque prox L ICA -lipitor 80 mg -neuro on board CT head 10/16/18 report: no definite interval change in comparison to a prior CT study of 10/14/18. a possible small subtle infarct is noted within the left frontal luna radiata. mild chronich micorvasulcar changes seen in the subinsular regions bilaterally. 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 no perilesional edema MBS today 10/19/18---> No aspiration or penetration. Reccoemnds soft diet with thin liquids. EEG showed encephalopathic changes Brain MRI---> pending offical read. #Seizure - Meningioma appeciated on imaging. May be 2/2 this. Prolactin 39.6 -keppra 1000mg IVPB BID -eeg performed at bedside. Waiting for official read of Brain MRI -sz prophylaxis #Acute hypoxic RF possible 2/2 aspiration -Blood cultures---. No growth -Extubated -elevate HOB #FEN No fluids continue to follow lytes Soft Diet w/ Thin Liquids #PPX DVT: SCD's in light of possible bleed GI: protonix 40 mg Daily #Dispo tele Visit type - Emergency Visit Emergency Visit: Yes ED Registration Date: 10/14/18 Care time: The patient presented to the Emergency Department on the above date and was hospitalized for further evaluation of their emergent condition. - New Patient This patient is new to me today: No - Critical Care Critical Care patient: No - Discharge Referral Referred to [facility] Med [facility] No
--- NOTE | 2018-10-19 17:19 | PN ---
Progress Note (short form) - Note Progress Note: 88 year old male histoyr of HLD,BPH. He was found unresponsive, patient had tonic clonic seizure and enroute to hospital .He was intubated and thought to have right sided hemiparesis, on ct head no big stroke or cta of neck and brain was normal. patient was started in keppra and has no seizure. He is feeling much better and talking appropriately and walking around . mri done today and results pending. NEUROLOGICAL EXAMIANTION alert oriented x 1 oriented x 1, he knows he is at hospital and this is 2019 able to follow simple command and speech is slurred eomi, pupils reactive, no face asymmetry Moving all ext ct head , cta of neck mri of brain is not reported and I looked at it , there is no stroke Repeat ct head is unchanged mri of brain is pending eeg showed encephalopathic changes Assessment 88 year old male history of BPH, HLD. Patient presented to hospital for seizure . His mental status has improved and Most likley he had Delirium He denies any alcohol abuse and so does family . Plan: continue statin and Aspirin is on hold - official mri report is pending - will continue to follow with primary Thanking you so much Fred Villeda MD
--- NOTE | 2018-10-19 20:25 | PN ---
Teaching Attending Note Name of Resident: Ravindra Desai ATTENDING PHYSICIAN STATEMENT I saw and evaluated the patient. I reviewed the resident's note and discussed the case with the resident. I agree with the resident's findings and plan as documented. SUBJECTIVE: Patient is feeling better, improving the speech, better wording. answers to questions appropiately OBJECTIVE: Vital Signs Temperature 97.4 F L 10/19/18 17:42 Pulse Rate 59 L 10/19/18 17:42 Respiratory Rate 20 10/19/18 17:42 Blood Pressure 106/69 10/19/18 17:42 O2 Sat by Pulse Oximetry (%) 94 L 10/18/18 21:00 HEAD: Normocephalic; atraumatic EYES: PERLLA, EOMI, NECK: Supple; non-tender; RESP: Normal chest excursion with respiration; breath sounds clear and equal bilaterally CARD: Normal S1, S2; positive for NADEEM 2/6 ,no murmurs, rubs, or gallops ABD: Soft, non-distended; non-tender; no palpable organomegaly, or palpable hernias EXT: Normal ROM in all four extremities; non-tender to palpation; distal pulses intact SKIN: Warm, dry, no rash NEURO: cn 2-12 grossly intact , speech is improving, gait is not steady. CBCD WBC 5.2 K/mm3 (4.0-10.0) 10/19/18 06:35 RBC 4.37 M/mm3 (4.00-5.60) 10/19/18 06:35 Hgb 12.5 GM/dL (11.7-16.9) 10/19/18 06:35 Hct 35.6 % (35.4-49) 10/19/18 06:35 MCV 81.6 fl (80-96) 10/19/18 06:35 MCHC 35.2 g/dl (32.0-35.9) 10/19/18 06:35 RDW 13.6 % (11.9-15.9) 10/19/18 06:35 Plt Count 339 K/MM3 (134-434) 10/19/18 06:35 MPV 7.7 fl (7.5-11.1) 10/19/18 06:35 CMP Sodium 138 mmol/L (136-145) 10/19/18 06:35 Potassium 3.7 mmol/L (3.5-5.1) 10/19/18 06:35 Chloride 105 mmol/L (98-107) 10/19/18 06:35 Carbon Dioxide 29 mmol/L (21-32) 10/19/18 06:35 Anion Gap 5 MMOL/L (8-16) L 10/19/18 06:35 BUN 14 mg/dL (7-18) 10/19/18 06:35 Creatinine 0.7 mg/dL (0.55-1.3) 10/19/18 06:35 Creat Clearance w eGFR 106.93 (>60) 10/19/18 06:35 Random Glucose 106 mg/dL (74-106) 10/19/18 06:35 Calcium 8.3 mg/dL (8.5-10.1) L 10/19/18 06:35 Total Bilirubin 1.1 mg/dL (0.2-1) H 10/19/18 06:35 AST 18 U/L (15-37) 10/19/18 06:35 ALT 13 U/L (13-61) 10/19/18 06:35 Alkaline Phosphatase 77 U/L (45-117) 10/19/18 06:35 Total Protein 5.9 g/dl (6.4-8.2) L 10/19/18 06:35 Albumin 2.9 g/dl (3.4-5.0) L 10/19/18 06:35 CARDIAC ENZYMES Creatine Kinase 65 U/L (26-308) 10/14/18 08:45 Troponin I < 0.02 ng/ml (0.00-0.05) 10/14/18 08:45 Current Medications Generic Name Dose Route Start Last Admin Trade Name Tuq PRN Reason Stop Dose Admin Acetaminophen 1,000 mg 10/17/18 17:28 Ofirmev Injection - IVPB Q6H PRN PAIN LEVEL 7 - 10 Aspirin 81 mg 10/18/18 13:00 10/19/18 11:10 Ecotrin - PO 81 mg DAILY [facility] Administration Atorvastatin Calcium 80 mg 10/17/18 22:00 10/18/18 22:42 Lipitor - PO 80 mg HS [facility] Administration Levetiracetam 1,000 mg 10/17/18 22:00 10/19/18 11:29 Keppra Injection - IVPB 1,000 mg BID [facility] Administration Pantoprazole Sodium 40 mg 10/16/18 11:30 10/19/18 11:29 Protonix Iv IVPUSH 40 mg DAILY [facility] Administration Home Medications Medication Instructions Recorded Atorvastatin Calcium 10 mg PO DAILY 10/14/18 Tamsulosin HCl 0.4 mg DAILY 10/14/[address] angiography Clinical information: right-sided hemiplegia Multiplanar imaging was performed following the intravenous administration of nonionic contrast. Individual partition images as well as projection and reformatted images are reviewed. The carotid and vertebral basilar circulations demonstrate no CT evidence of large vessel stenosis or occlusion. No discrete intraluminal defect is seen. There is no definite aneurysm. No extrinsic abnormality is noted. A small nonhemorrhagic infarct is seen within the left basal ganglia/ frontal luna radiata which is probably acute. As noted on recently performed noncontrast CT a partially calcified 1.3 x 0.8 cm right frontal parafalcine meningioma is noted at the high convexity level No perilesional edema is seen. The extracranial carotid arteries demonstrate no discrete stenosis. Moderate calcified atherosclerotic plaque is noted at the level of the proximal left internal carotid artery. The extracranial vertebral arteries are patent bilaterally. No definite vertebral artery stenosis is noted. Evaluation of the vertebral artery origins is somewhat limited due to partially obscuring beam hardening artifact. An endotracheal tube is seen in place with the tip within the upper aspect of the right main stem bronchus. ER staff is aware of this finding. IMPRESSION: The intracranial CT exam demonstrates no evidence of large vessel stenosis or occlusion. No intraluminal defect is identified. No extracranial carotid artery stenosis is seen. Moderate calcified atherosclerotic plaque is noted along the proximal left internal carotid artery. The extracranial vertebral arteries are patent without obvious stenosis. A small left basal ganglia/frontal luna radiata infarct is noted which is probably acute. Brain CTA: Clinical information: right-sided hemiplegia Multiplanar imaging was performed following the intravenous administration of nonionic contrast. Individual partition images as well as projection and reformatted images are reviewed. The carotid and vertebral basilar circulations demonstrate no CT evidence of large vessel stenosis or occlusion. No discrete intraluminal defect is seen. There is no definite aneurysm. No extrinsic abnormality is noted. A small nonhemorrhagic infarct is seen within the left basal ganglia/frontal luna radiata which is probably acute. As noted on recently performed noncontrast CT a partially calcified 1.3 x 0.8 cm right frontal parafalcine meningioma is noted at the high convexity level No perilesional edema is seen. The extracranial carotid arteries demonstrate no discrete stenosis. Moderate calcified atherosclerotic plaque is noted at the level of the proximal left internal carotid artery. The extracranial vertebral arteries are patent bilaterally. No definite vertebral artery stenosis is noted. Evaluation of the vertebral artery origins is somewhat limited due to partially obscuring beam hardening artifact. An endotracheal tube is seen in place with the tip within the upper aspect of the right main stem bronchus. ER staff is aware of this finding.Impression: The intracranial CT exam demonstrates no evidence of large vessel stenosis or occlusion. No intraluminal defect is identified. No extracranial carotid artery stenosis is seen. Moderate calcified atherosclerotic plaque is noted along the proximal left internal carotid artery. The extracranial vertebral arteries are patent without obvious stenosis. A small left basal ganglia/frontal luna radiata infarct is noted which is probably acute. Correlate with follow-up MRI/CT. CT abdoman and pelvis: EXAM#: TYPE/EXAM: RESULT: [id number] CT/ABDOMEN PELVIS CT W/O CONTR HISTORY PROVIDED: Rule out small bowel obstruction TECHNIQUE: Sequential axial images were obtained from the domes of the diaphragm through the symphysis pubis following the administration of oral contrast material. Bilateral pleural effusions and basilar atelectasis is noted. The heart is enlarged. A nasogastric tube is noted within the stomach. The liver, spleen, pancreas, adrenal glands and kidneys demonstrate no significant abnormalities. Gallstones are identified within the gallbladder. There is no evidence of intra- abdominal or retroperitoneal lymphadenopathy or fluid collections. There is no evidence of pneumoperitoneum, bowel obstruction or intra-abdominal abscess. Examination of the pelvis demonstrates no evidence of pelvic masses, fluid collections or lymphadenopathy. The prostate gland is enlarged measuring 5.9 x 5.3 x 6.4 cm. There is no evidence of acute bony abnormalities. IMPRESSION: 1. Bilateral pleural effusions and basilar atelectasis. 2. Cholelithiasis. 3. Hepatic enlargement. 4. No evidence of bowel obstruction or acute pathology within the abdomen or pelvis. Please see above discussion. Reported By: Uriel Seymour MD 10/15/18 19510/14/18 08:30 Blood - Peripheral Venous Blood Culture - Preliminary NO GROWTH OBTAINED AFTER 24 HOURS, INCUBATION TO CONTINUE FOR 4 DAYS. 10/14/18 09:17 Blood - Peripheral Venous Blood Culture - Preliminary NO GROWTH OBTAINED AFTER 24 HOURS, INCUBATION TO CONTINUE FOR 4 DAYS. MRI of the brain: Patient received 17cc of gadolinium (Omniscan). Findings. The intracranial contents are shown well from the dudley magnum to the cranial vertex. There is no evidence of abnormal restricted diffusion in the brain to suggest acute or subacute infarction. Moderate generalized loss of volume of the brain parenchyma with involutional changes. There is no mass effect, midline shift, intra or extra axial collections. Normal corpus callosum is noted. Chronic right paramedian pontine infarct is noted. Chronic ischemic changes are observed in the thalami, left basal ganglia/lesley insular region. Supratentorial chronic white matter microangiopathic ischemic changes, gliosis. Multiple foci of CSF signal intensity in are observed in the basal ganglia - Etat crible. The major caliber vascular structures of [place] of [place] and peripheral dural venous sinuses show flow void signal characteristics. No abnormality seen in the pontomedullary junction region. No evidence of Chiari malformation. There is no sellar of suprasellar mass. Nonspecific mucosal changes are seen in bilateral ethmoid air cells. The region of the CP angle cisterns appear normal. Normal signal intensity of the calvarium. Approximately 15 mm x 5.5 mm x 10 mm right frontal parafalcine enhancing meningioma is noted encroaching on the adjacent widened subarachnoid space without edema in the adjacent right frontal lobe. Following intravenous infusion with gadolinium, no evidence blood brain barrier defect, or abnormal focus of enhancement is seen. Impression. There is no evidence of abnormal restricted diffusion in the brain to suggest acute or subacute infarction. Chronic right paramedian pontine infarct is noted. Chronic ischemic changes are observed in the thalami, left basal ganglia/lesley insular region. Supratentorial chronic white matter microangiopathic ischemic changes, gliosis. Moderate generalized loss of volume of the brain parenchyma with involutional changes Approximately 15 mm x 5.5 mm x 10 mm right frontal parafalcine enhancing meningioma is noted encroaching on the adjacent widened subarachnoid space without edema in the adjacent right frontal lobe. Reported By: Jonathan Servin MD 10/20/18 0590 ASSESSMENT AND PLAN: Patient is an 88 year old male with a PMHx of BPH and HLD who was intubated on the field due to apnea and hypoxia . #Acute hypoxic Respiratory Failure: s/p extubation s/p Abx #Microangiopathic ischemic changes on MRI, meningioma 15x5.5x10mm, continue ASA 81mg po daily. lipitor 80mg daily . #Seizure prophylaxis : antiepileptics continue [facility] Neuro consult appreciated #Atelectasis: s/p vent. #Hyperlipidemia: on Lipitor 80mg qhs # Hx of BPH #elevated BS: accu check with sliding scale. DVT/GI prophylaxis telemetry now.
[2018-10-19] MEDS: ATORVASTATIN CA 80 MG TABLET (FP) PO SCH (21:57)
[2018-10-20 06:35] LABS: HEMATOCRIT 35.5 % (35.4-49); HEMOGLOBIN 12.3 GM/dL (11.7-16.9); MCH 28.5 pg (25.7-33.7); MCHC 34.7 g/dl (32.0-35.9); MEAN CELL VOLUME 82.2 fl (80-96); MEAN PLT VOLUME 8.1 fl (7.5-11.1); PLATELET COUNT 361 K/MM3 (134-434); RBC 4.32 M/mm3 (4.00-5.60); RDW 13.5 % (11.9-15.9); WHITE BLOOD COUNT 6.6 K/mm3 (4.0-10.0)
[2018-10-20 07:22] LABS: ANION GAP 7 MMOL/L (8-16); BLOOD UREA NITROGEN 18 mg/dL (7-18); CALCIUM 8.2 mg/dL (8.5-10.1); CHLORIDE 106 mmol/L (98-107); CO2 27 mmol/L (21-32); CREATININE 0.8 mg/dL (0.55-1.3); GLUCOSE,RANDOM 108 mg/dL (74-106); MAGNESIUM 2.4 mg/dL (1.8-2.4); PHOSPHOROUS 2.8 mg/dL (2.5-4.9); POTASSIUM 3.4 mmol/L (3.5-5.1); SODIUM 140 mmol/L (136-145)
[2018-10-20] MEDS: ASPIRIN COATED 81 MG TABLET.EC PO SCH (09:58)
[2018-10-20] MEDS: levETIRAcetam 500 MG/5 ML INJECTION VIAL IVPB SCH (09:58)
--- NOTE | 2018-10-20 11:07 | PN ---
Progress Note, TEST LAB TECHNICIAN - Note Progress Note: MRI head noted -Meningioma. no acute CVA. Abnormal EEG Receptive/expressive language MUCH improved. Pt now able to carry on a conversation, respond to questions appropriately in Ma[place] with good word finding. Unsteady gait reported. Upgraded to soft diet/thin liquids. Tolerating diet well. Selected Entries 10/19/18 10/19/18 10/19/18 04:00 14:00 17:42 Supper Temperature 97.9 F 97.5 F L 97.4 F L 10/19/18 10/19/18 10/20/18 21:00 22:57 01:00 Supper 100% Temperature 97.8 F 98.3 F 10/20/18 05:00 Supper Temperature 98.0 F Laboratory Tests 10/20/18 05:30 WBC 6.6
--- NOTE | 2018-10-20 11:18 | PN ---
Progress Note, Physician History of Present Illness: PULMONARY ALERT,OOB-CHAIR,-SOB - Current Medication List Current Medications: Active Medications Acetaminophen (Ofirmev Injection -) 1,000 mg IVPB Q6H PRN PRN Reason: PAIN LEVEL 7 - 10 Aspirin (Ecotrin -) 81 mg PO DAILY [facility] Last Admin: 10/20/18 09:58 Dose: 81 mg Atorvastatin Calcium (Lipitor -) 80 mg PO HS [facility] Last Admin: 10/19/18 21:57 Dose: 80 mg Levetiracetam (Keppra -) 1,000 mg PO BID [facility] Pantoprazole Sodium (Protonix Iv) 40 mg IVPUSH DAILY [facility] Last Admin: 10/19/18 11:29 Dose: 40 mg - Objective Vital Signs: Vital Signs Temperature 98.0 F 10/20/18 05:00 Pulse Rate 55 L 10/20/18 05:00 Respiratory Rate 20 10/20/18 05:00 Blood Pressure 106/64 10/20/18 05:00 O2 Sat by Pulse Oximetry (%) 96 10/19/18 21:00 Constitutional: Yes: Well Nourished, Calm Eyes: Yes: WNL HENT: Yes: WNL Neck: Yes: WNL Cardiovascular: Yes: Regular Rate and Rhythm, S1, S2 Respiratory: Yes: Rales (FEW BIBASILAR CRACKLES) Gastrointestinal: Yes: Normal Bowel Sounds, Soft Extremities: Yes: WNL Edema: No Labs: CBC, BMP 10/20/18 05:30 10/20/18 05:30 INR, PTT INR 1.08 (0.83-1.09) 10/14/18 08:43 Problem List - Problems (1) Basal ganglia stroke Code(s): I63.9 - CEREBRAL INFARCTION, UNSPECIFIED (2) CVA (cerebral vascular accident) Code(s): I63.9 - CEREBRAL INFARCTION, UNSPECIFIED Qualifiers: CVA mechanism: unspecified Qualified Code(s): I63.9 - Cerebral infarction, unspecified (3) Respiratory failure Code(s): J96.90 - RESPIRATORY FAILURE, UNSP, UNSP W HYPOXIA OR HYPERCAPNIA Qualifiers: Chronicity: unspecified Respiratory failure complication: unspecified whether with hypoxia or hypercapnia Qualified Code(s): J96.90 - Respiratory failure, unspecified, unspecified whether with hypoxia or hypercapnia (4) Seizure Code(s): R56.9 - UNSPECIFIED CONVULSIONS Assessment/Plan A/P Acute CVA Seizure s/p Acute Respiratory Failure Lactic Acidosis Atelectasis Hyperlipidemia BPH - O2 to keep Spo2 >90% - antiepileptics - replete lytes - aspiration precautions - s/p empiric antibiotics - DVT prophylaxis DR ZENDEJAS
--- NOTE | 2018-10-20 12:05 | DS ---
Physical Exam: SUBJECTIVE: Patient seen and examined at bedside. No acute events overnight. DC today to SNF. OBJECTIVE: Vital Signs Period Temp Pulse Resp BP Sys/Ludwig Pulse Ox Last 24 Hr 97.4 F-98.3 F 55-70 20-20 100-151/59-69 96 PHYSICAL EXAM GENERAL: NAD HEENT: NC/AT EYES: Pupils reactive LUNGS: CTAB HEART: RRR nl s1s2 ABDOMEN: NDNT No HSM EXTREMITIES: No CCE. SCD's PSYCH: Normal mood, normal affect. SKIN: Warm, dry, normal turgor, no rashes or lesions noted LABS Laboratory Results - last 24 hr 10/20/18 10/20/18 05:30 05:30 WBC 6.6 RBC 4.32 Hgb 12.3 Hct 35.5 MCV 82.2 MCH 28.5 MCHC 34.7 RDW 13.5 Plt Count 361 MPV 8.1 Sodium 140 Potassium 3.4 L Chloride 106 Carbon Dioxide 27 Anion Gap 7 L BUN 18 Creatinine 0.8 Creat Clearance w eGFR 91.66 Random Glucose 108 H Calcium 8.2 L Phosphorus 2.8 Magnesium 2.4 HOSPITAL COURSE: Date of Admission:10/14/18 Pt is an 88 y/o M with PMH BPH, HLD, who presented to [facility] after he was intubated in the field due to apnea and hypoxia. Per ED records, pt had seizure while en route to hospital. Pt underwent imaging of hsi head with a Head CT which did not reveal any acute intracranial pathology but did reveal a meningioma. ECHO was performed which revealed L Ventricular size, function, thickness WNL. Pt was admitted to the ICU. Was treated with Rocephin 1 gm for acute hypoxic respiratory failure possibly 2/2 aspiration. Was also placed on lipitor 40mg through NGT which was ultimately increased to 80 QD. ASA was withheld as pt was thought to have a possible G.I bleed as he was observed to have coffee ground emesis per spouse. Brain CTA was performed which revealed moderate calcified atherosclerotic plaque along the proximal left internal carotid artery and a small left basal ganglia/frontal luna radiata infarct, please see report for further details. MRI was later performed which did not reveal any acute or subacute pathology. Pt was started however on Keppra 1000 BID by neurology for seizure prophylaxis. [facility]. Date of Discharge: 10/20/18 Minutes to complete discharge: 35 Discharge Summary Reason For Visit: CVA Current Active Problems Abnormal abdominal x-ray (Acute) Altered mental status (Acute) Basal ganglia stroke (Acute) CVA (cerebral vascular accident) (Acute) Diarrhea (Acute) GI bleed (Acute) Respiratory failure (Acute) Seizure (Acute) Vomiting alone (Acute) Condition: Improved - Instructions Diet, Activity, Other Instructions: You presented to the hospital due to seizure and found to have a stroke. Please take the following medications as prescribed below: Keppra 1000 MG TWICE per day Ecotrin 81 mg Daily Lipitor 80 mg daily Please continue a soft diet with thin liquids. Please follow up with the neurologist, Dr Villeda this week. A referral has been attached in your discharge papers. Please follow up with your primary care doctor in 1 week. Please return to the emergency department immediately if you begin to experience chest pain, shortness of breath, nausea/vomiting, or fevers. Referrals: Fred Villeda MD [Staff Physician] - 1 Week Disposition: [facility] - Home Medications Comprehensive Discharge Medication List: Ambulatory Orders Tamsulosin HCl 0.4 mg DAILY 10/14/18 Aspirin [Ecotrin] 81 mg PO DAILY #30 tablet. 10/20/18 Atorvastatin Ca [Lipitor] 80 mg PO HS #30 tablet 10/20/18 levETIRAcetam [Keppra -] 1,000 mg PO BID #60 tablet 10/20/18 This patient is new to me today: No Emergency Visit: Yes ED Registration Date: 10/14/18 Care time: The patient presented to the Emergency Department on the above date and was hospitalized for further evaluation of their emergent condition. Critical Care patient: No - Discharge Referral Referred to [facility] Med P.C.: No
[2018-10-20 14:14] VITALS: BP 112/74; PULSE 62; TEMP 98.2
[2018-10-20 15:33] VITALS: BMI 26.4
--- NOTE | 2018-10-20 15:34 | PN ---
Teaching Attending Note Name of Resident: Ravindra Desai ATTENDING PHYSICIAN STATEMENT I saw and evaluated the patient. I reviewed the resident's note and discussed the case with the resident. I agree with the resident's findings and plan as documented. SUBJECTIVE: Patient is better today with no acute distress, had MBS yesterday. can be discharged to rehab. todaY. OBJECTIVE: Vital Signs Temperature 98.2 F 10/20/18 09:00 Pulse Rate 62 10/20/18 09:00 Respiratory Rate 20 10/20/18 09:00 Blood Pressure 112/74 10/20/18 09:00 O2 Sat by Pulse Oximetry (%) 96 10/20/18 09:00 HEAD: Normocephalic; atraumatic EYES: PERLLA, EOMI, NECK: Supple; non-tender; RESP: breath sounds clear and equal bilaterally CARD: Normal S1, S2; positive for NADEEM 2/6 ,no murmurs, rubs, or gallops ABD: Soft, non-distended; non-tender; no palpable organomegaly, or palpable hernias EXT: Normal ROM in all four extremities; non-tender to palpation; PULSES ARE POSITIve SKIN: Warm, dry, no rash NEURO: cn 2-12 grossly intact , speech is improving, gait is not steady CBCD WBC 6.6 K/mm3 (4.0-10.0) 10/20/18 05:30 RBC 4.32 M/mm3 (4.00-5.60) 10/20/18 05:30 Hgb 12.3 GM/dL (11.7-16.9) 10/20/18 05:30 Hct 35.5 % (35.4-49) 10/20/18 05:30 MCV 82.2 fl (80-96) 10/20/18 05:30 MCHC 34.7 g/dl (32.0-35.9) 10/20/18 05:30 RDW 13.5 % (11.9-15.9) 10/20/18 05:30 Plt Count 361 K/MM3 (134-434) 10/20/18 05:30 MPV 8.1 fl (7.5-11.1) 10/20/18 05:30 CMP Sodium 140 mmol/L (136-145) 10/20/18 05:30 Potassium 3.4 mmol/L (3.5-5.1) L 10/20/18 05:30 Chloride 106 mmol/L (98-107) 10/20/18 05:30 Carbon Dioxide 27 mmol/L (21-32) 10/20/18 05:30 Anion Gap 7 MMOL/L (8-16) L 10/20/18 05:30 BUN 18 mg/dL (7-18) 10/20/18 05:30 Creatinine 0.8 mg/dL (0.55-1.3) 10/20/18 05:30 Creat Clearance w eGFR 91.66 (>60) 10/20/18 05:30 Random Glucose 108 mg/dL (74-106) H 10/20/18 05:30 Calcium 8.2 mg/dL (8.5-10.1) L 10/20/18 05:30 Total Bilirubin 1.1 mg/dL (0.2-1) H 10/19/18 06:35 AST 18 U/L (15-37) 10/19/18 06:35 ALT 13 U/L (13-61) 10/19/18 06:35 Alkaline Phosphatase 77 U/L (45-117) 10/19/18 06:35 Total Protein 5.9 g/dl (6.4-8.2) L 10/19/18 06:35 Albumin 2.9 g/dl (3.4-5.0) L 10/19/18 06:35 CARDIAC ENZYMES Creatine Kinase 65 U/L (26-308) 10/14/18 08:45 Troponin I < 0.02 ng/ml (0.00-0.05) 10/14/18 08:45 Home Medications Medication Instructions Recorded RX: Tamsulosin HCl 0.4 mg DAILY 10/14/18 Aspirin [Ecotrin] 81 mg PO DAILY #30 tablet. 10/20/18 RX: Atorvastatin Ca [Lipitor] 80 mg PO HS #30 tablet 10/20/18 RX: levETIRAcetam [Keppra -] 1,000 mg PO BID #60 tablet 10/20/[address] angiography Clinical information: right-sided hemiplegia Multiplanar imaging was performed following the intravenous administration of nonionic contrast. Individual partition images as well as projection and reformatted images are reviewed. The carotid and vertebral basilar circulations demonstrate no CT evidence of large vessel stenosis or occlusion. No discrete intraluminal defect is seen. There is no definite aneurysm. No extrinsic abnormality is noted. A small nonhemorrhagic infarct is seen within the left basal ganglia/ frontal luna radiata which is probably acute. As noted on recently performed noncontrast CT a partially calcified 1.3 x 0.8 cm right frontal parafalcine meningioma is noted at the high convexity level No perilesional edema is seen. The extracranial carotid arteries demonstrate no discrete stenosis. Moderate calcified atherosclerotic plaque is noted at the level of the proximal left internal carotid artery. The extracranial vertebral arteries are patent bilaterally. No definite vertebral artery stenosis is noted. Evaluation of the vertebral artery origins is somewhat limited due to partially obscuring beam hardening artifact. An endotracheal tube is seen in place with the tip within the upper aspect of the right main stem bronchus. ER staff is aware of this finding. IMPRESSION: The intracranial CT exam demonstrates no evidence of large vessel stenosis or occlusion. No intraluminal defect is identified. No extracranial carotid artery stenosis is seen. Moderate calcified atherosclerotic plaque is noted along the proximal left internal carotid artery. The extracranial vertebral arteries are patent without obvious stenosis. A small left basal ganglia/frontal luna radiata infarct is noted which is probably acute. Brain CTA: Clinical information: right-sided hemiplegia Multiplanar imaging was performed following the intravenous administration of nonionic contrast. Individual partition images as well as projection and reformatted images are reviewed. The carotid and vertebral basilar circulations demonstrate no CT evidence of large vessel stenosis or occlusion. No discrete intraluminal defect is seen. There is no definite aneurysm. No extrinsic abnormality is noted. A small nonhemorrhagic infarct is seen within the left basal ganglia/frontal luna radiata which is probably acute. As noted on recently performed noncontrast CT a partially calcified 1.3 x 0.8 cm right frontal parafalcine meningioma is noted at the high convexity level No perilesional edema is seen. The extracranial carotid arteries demonstrate no discrete stenosis. Moderate calcified atherosclerotic plaque is noted at the level of the proximal left internal carotid artery. The extracranial vertebral arteries are patent bilaterally. No definite vertebral artery stenosis is noted. Evaluation of the vertebral artery origins is somewhat limited due to partially obscuring beam hardening artifact. An endotracheal tube is seen in place with the tip within the upper aspect of the right main stem bronchus. ER staff is aware of this finding.Impression: The intracranial CT exam demonstrates no evidence of large vessel stenosis or occlusion. No intraluminal defect is identified. No extracranial carotid artery stenosis is seen. Moderate calcified atherosclerotic plaque is noted along the proximal left internal carotid artery. The extracranial vertebral arteries are patent without obvious stenosis. A small left basal ganglia/frontal luna radiata infarct is noted which is probably acute. Correlate with follow-up MRI/CT. CT abdoman and pelvis: EXAM#: TYPE/EXAM: RESULT: [id number] CT/ABDOMEN PELVIS CT W/O CONTR HISTORY PROVIDED: Rule out small bowel obstruction TECHNIQUE: Sequential axial images were obtained from the domes of the diaphragm through the symphysis pubis following the administration of oral contrast material. Bilateral pleural effusions and basilar atelectasis is noted. The heart is enlarged. A nasogastric tube is noted within the stomach. The liver, spleen, pancreas, adrenal glands and kidneys demonstrate no significant abnormalities. Gallstones are identified within the gallbladder. There is no evidence of intra- abdominal or retroperitoneal lymphadenopathy or fluid collections. There is no evidence of pneumoperitoneum, bowel obstruction or intra-abdominal abscess. Examination of the pelvis demonstrates no evidence of pelvic masses, fluid collections or lymphadenopathy. The prostate gland is enlarged measuring 5.9 x 5.3 x 6.4 cm. There is no evidence of acute bony abnormalities. IMPRESSION: 1. Bilateral pleural effusions and basilar atelectasis. 2. Cholelithiasis. 3. Hepatic enlargement. 4. No evidence of bowel obstruction or acute pathology within the abdomen or pelvis. Please see above discussion. Reported By: Uriel Seymour MD 10/15/18 19510/14/18 08:30 Blood - Peripheral Venous Blood Culture - Preliminary NO GROWTH OBTAINED AFTER 24 HOURS, INCUBATION TO CONTINUE FOR 4 DAYS. 10/14/18 09:17 Blood - Peripheral Venous Blood Culture - Preliminary NO GROWTH OBTAINED AFTER 24 HOURS, INCUBATION TO CONTINUE FOR 4 DAYS. MRI of the brain: Patient received 17cc of gadolinium (Omniscan). Findings. The intracranial contents are shown well from the dudley magnum to the cranial vertex. There is no evidence of abnormal restricted diffusion in the brain to suggest acute or subacute infarction. Moderate generalized loss of volume of the brain parenchyma with involutional changes. There is no mass effect, midline shift, intra or extra axial collections. Normal corpus callosum is noted. Chronic right paramedian pontine infarct is noted. Chronic ischemic changes are observed in the thalami, left basal ganglia/lesley insular region. Supratentorial chronic white matter microangiopathic ischemic changes, gliosis. Multiple foci of CSF signal intensity in are observed in the basal ganglia - Etat crible. The major caliber vascular structures of [place] and peripheral dural venous sinuses show flow void signal characteristics. No abnormality seen in the pontomedullary junction region. No evidence of Chiari malformation. There is no sellar of suprasellar mass. Nonspecific mucosal changes are seen in bilateral ethmoid air cells. The region of the CP angle cisterns appear normal. Normal signal intensity of the calvarium. Approximately 15 mm x 5.5 mm x 10 mm right frontal parafalcine enhancing meningioma is noted encroaching on the adjacent widened subarachnoid space without edema in the adjacent right frontal lobe. Following intravenous infusion with gadolinium, no evidence blood brain barrier defect, or abnormal focus of enhancement is seen. Impression. There is no evidence of abnormal restricted diffusion in the brain to suggest acute or subacute infarction. Chronic right paramedian pontine infarct is noted. Chronic ischemic changes are observed in the thalami, left basal ganglia/lesley insular region. Supratentorial chronic white matter microangiopathic ischemic changes, gliosis. Moderate generalized loss of volume of the brain parenchyma with involutional changes Approximately 15 mm x 5.5 mm x 10 mm right frontal parafalcine enhancing meningioma is noted encroaching on the adjacent widened subarachnoid space without edema in the adjacent right frontal lobe. Reported By: Jonathan Servin MD 10/20/18 0752 ASSESSMENT AND PLAN: Patient is an 88 year old male with a PMHx of BPH and HLD who was intubated on the field due to apnea and hypoxia . #Acute hypoxic Respiratory Failure: s/p extubation s/p Abx #Microangiopathic ischemic changes on MRI, meningioma 15x5.5x10mm, continue ASA 81mg po daily. lipitor 80mg daily, patient is improving . #Seizure prophylaxis : antiepileptics continue [facility] consult appreciated #Atelectasis: s/p vent. #Hyperlipidemia: on Lipitor 80mg qhs continue # Hx of BPH #elevated BS: on admission, is back to normal , follow up as an outpatient. DVT/GI prophylaxis discharge patient to rehab.
[2018-10-20] MEDS ORDERED: levETIRAcetam 500 MG TABLET (FP) PO SCH (22:00)
== END 2018-10-20 14:19 | DRG 100 ==
LOC: JER 08:41 → JERBED 12:58 → JICU 14:29 → J4W 10-17 17:31
PROVIDERS: ADMIT Internal Medicine; ATTEND Internal Medicine
PROC: 5A1945Z Respiratory Ventilation, 24-96 Consecutive Hours (ICD-10-PCS; principal; 2018-10-14)
PROC: 0BH17EZ Insertion of Endotracheal Airway into Trachea, Via Natural or Artificial Opening (ICD-10-PCS; 2018-10-14)
DX: R56.9 Unspecified convulsions (principal); J96.01 Acute respiratory failure with hypoxia; J69.0 Pneumonitis due to inhalation of food and vomit; J98.11 Atelectasis; K92.2 Gastrointestinal hemorrhage, unspecified; E87.2 Acidosis; D32.0 Benign neoplasm of cerebral meninges; E78.5 Hyperlipidemia, unspecified; N40.0 Benign prostatic hyperplasia without lower urinary tract symptoms; E83.42 Hypomagnesemia; E83.39 Other disorders of phosphorus metabolism
CPT/HCPCS: 36415; 36600; 70450-TC; 70496-TC; 70498-TC; 70553-TC; 71045-TC-FY; 74018-TC-FY; 74176-TC; 74230-TC-FY; 76700-TC; 80048; 80053; 80307; 81003; 81015; 82040; 82272; 82375; 82465; 82550; 82803; 82962; 82977; 83050; 83605; 83718; 83721; 83735; 84100; 84146; 84478; 84484; 85025; 85027; 85610; 86850; 86900; 86901; 87040; 92611-GN; 93005; 93010; 93306-TC; 95816; 97116-GP; 97162-GP; 99285-25; J7030